=== PATIENT | male | born 1965 ===

== ENCOUNTER 2025-03-09 03:45 | Inpatient (IN) | payer OTHER, SELFPAY ==
[2025-03-09] VITALS (19 sets, daily range): BP systolic 136–158; BP diastolic 85–107; PULSE 84; O2SAT 97–98; BMI 21.0; BMI 23.2
[2025-03-09 00:39] LABS: Glucose - Point of Care 91 mg/dl (70-99)
--- NOTE | 2025-03-09 00:43 | ED.CVA ---
History of Present Illness
General
Chief Complaint: CVA/TIA Symptoms
Time Seen by Provider: 03/09/25 00:38
Onset of Stroke Symptoms
Onset of symptoms known: No
Time pt last seen normal is known: No
History of Present Illness
History of Present Illness:
TIME OF INITIAL ENCOUNTER: 12:45 AM
HPI: I spoke to EMS prior to arrival. EMS tells me that his symptoms likely started over 24 hours ago. There was concerns for a change in his mental status. I called the staff at [facility] who tells me that he can usually talk normally and joke
around but was not doing that over the past 24 hours or so. He was noted to be leaning to 1 side as well.
EXAM:
GENERAL: The patient is ill-appearing, dialysis catheter noted tunneled in the right IJ
HEENT: Dry oral mucosa
CARDIOVASCULAR: No murmurs, normal heart rate, regular rhythm, No chest wall tenderness
PULMONARY: No respiratory distress, breath sounds are clear and equal
ABDOMEN: Soft with no peritoneal signs, no tenderness
NEUROLOGIC: The patient has trouble following simple commands, he cannot name the month, the patient appears generally weak
PSYCHIATRIC: The patient has limited insight and judgment
EXTREMITIES: Nontender, no edema, moves all extremities equally
SKIN: No rash, no lesions
NUMBER AND COMPLEXITY OF PROBLEMS ADDRESSED AT THE ENCOUNTER
� Chronic conditions affecting care: CKD, diabetes, history of alcohol dependence
� Acute Exacerbation and/or Progression of Chronic Illness:
� Differential Diagnosis includes: CVA, sepsis, bacteremia, pneumonia, UTI, electrolyte normality, dehydration, acute on chronic renal sufficiency
AMOUNT AND/OR COMPLEXITY OF DATA TO BE REVIEWED AND ANALYZED
� I performed an independent evaluation of and my interpretation is:
EKG: Sinus 89, IVCD with associated ST abnormality and no old to compare
CT:
X-rays: HD catheter noted, increased densities noted of the right lung
Laboratory Studies: Hemoglobin 7.6, glucose 91
Other:
� Review of other/old records: I reviewed the paperwork from [facility]. As of 3:05 AM, no records have been received from [facility]
� Clinical information was obtained by an independent historian: I did speak to staff at [facility]
� Prescriptions/Medications Considered but not given:
� Further testing considered but not performed:
RISK OF COMPLICATIONS AND/OR MORBIDITY OR MORTALITY OF PATIENT MANAGEMENT
� Social determinants of health affecting care: Originally from [place], at [facility] as this is the only facility that could accept him for physical therapy and get hemodialysis done
� Discussion with other providers: Dr. Garcia for admission
� Escalation of care including admission/observation vs risk of discharge considered:The patient was found to be anemic with hemoglobin 7.6 with no old to compare. Stools Hemoccult negative.
ANY OTHER UPDATES:
1:30 AM: On reassessment the patient's clinical condition remains unchanged
1:45 AM: I spoke to the mother. The mother tells me that the patient was admitted at [facility] for a chest infection that spread into his knees and elsewhere affecting his kidneys requiring the start of dialysis. The only place that could
except him for physical therapy and dialysis was [facility]. He originally was living in the [place] area. I spoke to staff at [facility] which indicates that the patient had a hemoglobin of 9.4 on 03/04.
From [facility] due to altered mental status onset around 24hrs ago. I called [facility], agency RN could not provide additional info. EMS said there was concern of dysarthria, leaning to one side, and facial asymmetry. I called his Mom
[phone] in [place], was at [facility] w/ 'lung infection that spread to his knees and now he is on dialysis'. Only place that could provide PT and HD was [facility]. He currently is not following simple commands which is not normal
for him. Paperwork said DNR, but mom says he is NOT DNR. Hgb 7.6. On 03/04 was 9.4. Heme negative brown stool. CT head neg acute. TSH 44, fT4 pending. 3+ LE and positive Nitrite - giving Rocephin. Temp 37.9C rectally. Also giving vanc due to
presence of temporary dialysis catheter. We called [facility], still have not receive anything regarding records. I filled out blood consent if needed.
Phy Exam
Physical Exam
Physical Exam:
See HPI
Course
Orders/Labs/Results
Orders:
Orders
03/09/25 00:41
CT Head W/o Iv Contrast Urgent
Comment:
Reason For Exam: alt ms
0.9% Sodium Chloride 1000 ml [Nss] 1,000 ml IV BOLUS
03/09/25 00:45
Acetaminophen [Tylenol/Feverall] 650 mg RECTAL NOW STA
03/09/25 00:46
CR Chest Portable - 1 View Urgent
Comment:
Reason For Exam: fever altered
Reason Study Needs to be Portable: Unable to Transport
03/09/25 00:58
Complete Blood Count/With Diff Urgent
Comprehensive Metabolic Panel Urgent
Ferritin Urgent
Comment: ADD ON
Free T4 Urgent
Iron Urgent
Lactic Acid Q4H
Comment: CANCEL 2nd LACTIC ACID IF 1st LACTIC ACID IS LESS THAN 2
TSH Reflex To Free T4 Urgent
Total Iron Binding Urgent
Comment: ADD ON
Blood Culture Q30M
JANETTE Source: Blood/Venous
Specimen Description:
03/09/25 01:25
Add On- LAB Urgent
Tests Added?: iron panel, TIBC, ferritin
03/09/25 01:34
Type+Screen Urgent
Blood Culture Q30M
JANETTE Source: Blood/Venous
Specimen Description:
03/09/25 01:58
Urinalysis Reflex To Culture Urgent
Date Specimen was Collected: 03/09/25
Time Specimen was Collected: 01:57
Urine Microscopic Reflex Cult Urgent
Urine Culture Urgent
JANETTE Source: U
Specimen Description:
Date Specimen was Collected: 03/09/25
Time Specimen was Collected: 01:57
03/09/25 02:03
ABO2 Urgent
BBK Wristband Number:
Associate notified that ABO2 has been ordered: LILLY
Date: 03/09/25
Time: 02:01
[employer] ID: [id number]
03/09/25 02:22
CefTRIAXone [Rocephin] 1,000 mg IV NOW STA
03/09/25 02:26
Electrocardiogram (*1) Urgent
Reason for Study: Palpitations
EKG- Treatment ONCE
03/09/25 02:59
Vancomycin [Vancocin] 1,500 mg 0.9% Sodium Chloride 500 ml [Nss] 500 ml IV NOW
Abnormal Lab Results
03/09/25 03/09/25
00:58 01:58
RBC 2.74 L 10^6/uL
(4.70-6.10)
Hgb 7.6 L g/dL
(13.0-18.0)
Hct 25.1 L %
(39.0-52.0)
MCHC 30.3 L g/dL
(33.0-37.0)
RDW 16.7 H %
(11.5-14.5)
Absolute Lymphs (auto) 0.9 L 10^3/uL
(1.2-3.4)
Lymphocytes % 14.5 L %
(20.5-51.1)
BUN 29 H mg/dl
(9-20)
Creatinine 3.5 H mg/dL
(0.7-1.3)
Iron 31 L ug/dl
(49-181)
TIBC 187 L ug/dl
(261-462)
% Saturation 16 L %
(20-50)
Ferritin 568.0 H ng/ml
(17.9-464.0)
Alkaline Phosphatase 143 H U/L
(38-126)
Albumin 2.6 L g/dl
(3.5-5.0)
TSH (Reflex) 44.10 H uIU/ml
(0.47-4.68)
Urine Ketones 1+ A
(Negative)
Ur Occult Blood Reflex 4+ A
(Negative)
Urine Nitrite (Reflex) Positive A
(Negative)
Leukocyte Esterase Rfl 3+ A
(Negative)
Urine RBC >100 A /HPF
(0-2)
Urine Albumin (Reflex) 4+ A
(Neg - Trace)
03/09/25 00:58
03/09/25 00:58
Vital Signs
Initial and Last Documented VS:
Initial Vital Signs
Temp Pulse Resp BP Pulse Ox
37.9 C 100 17 154/98 94
03/09/25 00:35 03/09/25 00:35 03/09/25 00:35 03/09/25 00:35 03/09/25 00:35
Last Documented Vital Signs
Temp Pulse Resp BP Pulse Ox
37.9 C 86 16 151/97 97
03/09/25 00:35 03/09/25 03:00 03/09/25 03:00 03/09/25 01:00 03/09/25 01:30
*Critical Care Note
Total Time (30-74mins, 75-104mins- exclusive of procedures): Not Applicable
ED Attending Note
-
Portions of this chart may have been created with voice recognition software.� Occasional wrong word or��sound alike� substitutions may have occurred due to the inherent limitations of voice recognition software.
Discharge Plan
Departure
Patient Disposition: Admit
Date of Disposition: 03/09/25
Time of Disposition: 02:25
Presentation/result/management discussed w/ accepting MD/DO: Hospitalist
Discharge Problem:
Acute alteration in mental status
Referrals:
Ismael Aranda DO [Family Provider] -
Interventions
Interventions:
*Risk Screen - Suicide Last Done: 03/09/25 00:35
*General Assessment Last Done: 03/09/25 00:35
*Neglect/Abuse Screening Last Done: 03/09/25 00:35
ED- Pulmonary Assessment Last Done: 03/09/25 01:09
ED- Neurological Assessment Last Done: 03/09/25 01:09
ED- Cardiac Assessment Last Done: 03/09/25 01:09
Discharge Date and Time
Print Language: MOHAWK
[2025-03-09] MEDS: TYLENOL/FEVERALL 650 MG RECTAL (00:59)
[2025-03-09] MEDS: NSS 1000 IV (01:00)
[2025-03-09 01:12] LABS: % Basophils 1.2 % (0-2); % Eosinophils 3.6 % (0-6); % Immature Granulocytes 0.3 % (0-0.5); % Lymphocytes 14.5 % (20.5-51.1); % Monocytes 9.2 % (1.7-9.3); % Neutrophils 71.2 % (42.2-75.2); Absolute Basophils 0.1 10^3/uL (0-0.2); Absolute Eosinophils 0.2 10^3/uL (0-0.7); Absolute Lymphocytes 0.9 10^3/uL (1.2-3.4); Absolute Monocytes 0.5 10^3/uL (0.1-0.6); Absolute Neutrophils 4.2 10^3/uL (1.4-6.5); Hematocrit 25.1 % (39.0-52.0); Hemoglobin 7.6 g/dL (13.0-18.0); Mean Corp Hgb Conc. 30.3 g/dL (33.0-37.0); Mean Corpuscular Hgb 27.7 pg (27.0-31.0); Mean Corpuscular Volume 91.6 fL (80.0-94.0); Mean Platelet Volume 9.2 fL (7.4-10.4); Nucleated Red Blood Cells % 0 % (-); Platelet Count 200 10^3/uL (130-400); Red Blood Cell Count 2.74 10^6/uL (4.70-6.10); Red Cell Dist. Width 16.7 % (11.5-14.5); White Blood Cell Count 5.9 10^3/uL (4.8-10.8)
[2025-03-09 01:25] LABS: ALT (SGPT) < 10 U/L (0-50); AST (SGOT) 19 U/L (17-59); Albumin 2.6 g/dl (3.5-5.0); Alkaline Phosphatase 143 U/L (38-126); Blood Urea Nitrogen 29 mg/dl (9-20); Calcium 8.4 mg/dl (8.4-10.2); Carbon Dioxide 27 mmol/L (22-30); Chloride 102 mmol/L (98-107); Estimated Creatinine Clearance 25 ml/min; Glucose 97 mg/dl (70-99); Potassium 3.9 mmol/L (3.5-5.1); Sodium 138 mmol/L (135-145); Total Bilirubin 0.5 mg/dl (0.2-1.3); Total Protein 7.1 g/dl (6.3-8.2); eGFR 19.28
[2025-03-09 01:27] LABS: Lactic Acid 0.8 mmol/L (0.7-2.0)
[2025-03-09 01:51] LABS: Iron 31 ug/dl (49-181)
[2025-03-09 02:00] LABS: Percent Saturation 16 % (20-50); Total Iron Binding Capacity 187 ug/dl (261-462)
[2025-03-09 02:13] LABS: Urine Albumin 4+ (Neg - Trace); Urine Bilirubin Negative (Negative); Urine Character Bloody (Clear); Urine Color Brown; Urine Glucose Negative (Negative); Urine Ketone 1+ (Negative); Urine Leukocyte 3+ (Negative); Urine Nitrite Positive (Negative); Urine Occult Blood 4+ (Negative); Urine Urobilinogen Negative (Neg - 1+)
[2025-03-09 02:29] LABS: Urine Red Blood Cell >100 /HPF (0-2); Urine Squamous Cell None seen /LPF (Few)
[2025-03-09] MEDS: VANCOCIN 530 MG IV (03:05)
[2025-03-09] MEDS: ROCEPHIN 1000 MG IV ×2 (03:05→23:11)
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
[2025-03-09] MEDS: SYNTHROID PO (06:13)
[2025-03-09 06:44] LABS: Hematocrit 26.6 % (39.0-52.0); Mean Corp Hgb Conc. 30.1 g/dL (33.0-37.0); Mean Corpuscular Hgb 28.3 pg (27.0-31.0); Mean Platelet Volume 9.6 fL (7.4-10.4); Platelet Count 201 10^3/uL (130-400); Red Blood Cell Count 2.83 10^6/uL (4.70-6.10); Red Cell Dist. Width 16.5 % (11.5-14.5); White Blood Cell Count 5.4 10^3/uL (4.8-10.8)
[2025-03-09 07:01] LABS: Blood Urea Nitrogen 29 mg/dl (9-20); Calcium 8.4 mg/dl (8.4-10.2); Carbon Dioxide 28 mmol/L (22-30); Chloride 103 mmol/L (98-107); Estimated Creatinine Clearance 24 ml/min; Glucose 95 mg/dl (70-99); Magnesium 1.5 mg/dl (1.6-2.3); Phosphorus 4.3 mg/dl (2.5-4.5); Potassium 3.8 mmol/L (3.5-5.1); Sodium 138 mmol/L (135-145); eGFR 18.64
[2025-03-09] MEDS: NOVOLOG FLEXPEN-LOW RESISTANCE SC ×3 (07:26→17:33)
--- NOTE | 2025-03-09 07:26 | EDRN ---
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 Contacted the 7-[address] Chaudhary, please hold morning insulin and PO meds.
--- NOTE | 2025-03-09 07:27 | EDRN ---
Nephrology made aware of consult order.
--- NOTE | 2025-03-09 08:42 | EDRN ---
IV team placed a new IV on the allowed arm for the patient. Pt to MRI, unable to start the stat Magnesium order. Dr. Julio notified via [facility].
[2025-03-09] MEDS: FOLVITE PO (09:19)
[2025-03-09] MEDS: MAGNESIUM SULFATE 50 IV (09:19)
[2025-03-09] MEDS: SENOKOT PO (09:19)
[2025-03-09] MEDS: VISBIOME PO (09:19)
[2025-03-09] MEDS: HEPARIN 5000 UNITS SC ×2 (09:27→20:46)
[2025-03-09] MEDS: LIDOCAINE 4% PATCH 1 PATCH TOPICAL (09:28)
--- NOTE | 2025-03-09 09:30 | CM ---
Addendum entered by Reva Heredia 03/09/25 10:06:
Paperwork received by SNF
Insurance [employer] [employer] PLan #[phone]
Faxed to admissions [phone]
Original Note:
CM spoke with nursing staff at [facility]
Limited info provided by weekend nursing staff
Pt has been at [facility] for two weeks- typically AxO3x
Is bed/chair bound currently and sam lift for transfers
Indep with bed mobility and UB personal care tasks
Weakness noted and pt has not been able to ambulate since admission for rehab
Pt unable to self propel WC at this time
Pt receives HD at facility [facility]
SNF will fax over insurance info- nursing not sure of payor source of STR vs LTC
Call with pt's mother/Shamika [phone] and she provided more background info
Pt admitted to hospital in [place] from 11/23/24-02/21/25
Was sent to [facility] due to HD needs that developed during hospitalization
Mother resides in [facility]
Pt has two sisters and 1 brother, all involved
Admissions notified with update for emergency contacts
Pt was residing with his mother prior to prolonged hospitalization/SNF placement
Primary contact- Shamika Posey/mother [phone]
Secondary contact- Chioma Laughlin) Alexis/sister [phone]
No POAs
Discharge Disposition- return to [facility]
[2025-03-09 10:52] LABS: Glycohemoglobin (HgbA1c) 5.2 % (4.0-5.6)
--- NOTE | 2025-03-09 10:59 | PTOTSP ---
Speech Pathology
Clinical Swallow Evaluation
59M with admission for AMS, dysarthria, and facial asymmetry. CVA/TIA workup, Brain MRI negative. CXR concerning for [possible PNA vs interstitial edema. Presents with s/s of a functional oropharyngeal swallow. No overt s/s of aspiration observed
this date. Unable to r/o silent aspiration at bedside. Pt is deemed an increased risk of aspiration 2/2 dysarthria, ?possible hx of modified diets, and AMS. Of note, had a recent admission for [facility] for sepsis related to PNA.
Recommend:
1. Regular textures, thin liquids
2. Meds as best tolerated
3. Swallow strategies: slow rate, small bites
4. CONSTRUCTION ASSISTANT service to follow up re: to assess tolerance of current diet level and provide dysphagia tx at the acute care level PRN; consider VSE to r/o silent aspiration given CXR concerning for possible PNA
--- NOTE | 2025-03-09 11:10 | W.CON.NEPH ---
Consultation
-
Date/Time Consultation Requested: 03/08/2025 11 PM
Date/Time Consultation Performed: 03/09/2025 at 9 AM
Requesting Provider: Dr. Ceballos
Performing Provider: Dr. Lara
Reason for Consultation: End-stage renal disease
Medical History
-
Chief Complaint: ESRD
History of Present Illness:
59y M with PMH significant for DM-II, alcohol use disorder and acute renal failure requiring dialysis who presents to ED from [facility] for evaluation of mental status change. EMS report that patient had facial asymmetry, dysarthria and 'leaning
to the side'.
most recently hospitalized at [facility] for sepsis related to pneumonia and knees. He developed acute renal failure during that stay and required hemodialysis. He was ultimately discharged to [facility] to meet his PT and HD needs.
CAT scan and MRI are negative for any acute pathology
The patient is awake and alert has no complaints no chest pain or shortness of breath
Renal consult for end-stage renal disease management
Past Medical History
59y M with PMH significant for DM-II, alcohol use disorder and acute renal failure requiring dialysis who presents to ED from [facility]
Social History
Tobacco: Non-Smoker
Alcohol: Former
Family History
Family History: Not Pertinent
Allergies / Home Medications
Allergy/AdvReac Type Severity Reaction Status Date / Time
No Known Allergies Allergy Verified 03/09/25 00:35
�Medication �Instructions �Recorded �Confirmed �Type
Lactobacillus acidophilus 1,000 mmu cells PO DAILY 03/09/25 03/09/25 History
acetaminophen 325 mg tablet 650 mg PO Q6H PRN Pain / Fever 03/09/25 03/09/25 History
albuterol sulfate 0.63 mg/3 mL 0.63 mg inhalation Q4H PRN SOB 03/09/25 03/09/25 History
solution for nebulization
atorvastatin 20 mg tablet 20 mg PO HS 03/09/25 03/09/25 History
cefadroxil 1 gram tablet 1,000 mg PO MOWEFR@2200 03/09/25 03/09/25 History
folic acid 1 mg tablet 1 mg PO DAILY 03/09/25 03/09/25 History
insulin aspart U-100 100 unit/mL 1 sliding scale dose SC DIRECTED 03/09/25 03/09/25 History
(3 mL) subcutaneous pen (Novolog
FlexPen U-100 Insulin aspart)
insulin glargine 100 unit/mL (3 6 unit SC QPM 03/09/25 03/09/25 History
mL) subcutaneous pen (Lantus
Solostar U-100 Insulin)
levothyroxine 137 mcg tablet 137 mcg PO DAILY 03/09/25 03/09/25 History
lidocaine 4 % topical patch 1 patch topical DAILY 03/09/25 03/09/25 History
melatonin 5 mg tablet 5 mg PO HS 03/09/25 03/09/25 History
nicotine 7 mg/24 hr daily 1 patch transdermal Q24H 03/09/25 03/09/25 History
transdermal patch
olanzapine 2.5 mg tablet 2.5 mg PO Q8HPRN PRN agitation 03/09/25 03/09/25 History
omeprazole 20 mg capsule,delayed 20 mg PO DAILY 03/09/25 03/09/25 History
release
oxycodone 5 mg tablet 5 mg PO Q6H PRN moderate pain 03/09/25 03/09/25 History
polyethylene glycol 3350 17 gram 17 g PO BID 03/09/25 03/09/25 History
oral powder packet (Miralax)
quetiapine 25 mg tablet 75 mg PO HS 03/09/25 03/09/25 History
sennosides 8.6 mg tablet (senna) 8.6 mg PO BID 03/09/25 03/09/25 History
Review of Systems
-
No chest pain or shortness of breath no nausea or vomiting
All other systems: Negative unless noted
Physical Exam
Vital Signs
Vital Signs
Temp Pulse Resp BP Pulse Ox
97.7 F 77 17 150/95 98
03/09/25 07:00 03/09/25 06:45 03/09/25 06:45 03/09/25 06:00 03/09/25 06:45
Lab Results
WBC 5.4 10^3/uL (4.8-10.8) 03/09/25 05:59
RBC 2.83 10^6/uL (4.70-6.10) L 03/09/25 05:59
Hgb 8.0 g/dL (13.0-18.0) L 03/09/25 05:59
Hct 26.6 % (39.0-52.0) L 03/09/25 05:59
Plt Count 201 10^3/uL (130-400) 03/09/25 05:59
Sodium 138 mmol/L (135-145) 03/09/25 05:59
Potassium 3.8 mmol/L (3.5-5.1) 03/09/25 05:59
Chloride 103 mmol/L (98-107) 03/09/25 05:59
Carbon Dioxide 28 mmol/L (22-30) 03/09/25 05:59
BUN 29 mg/dl (9-20) H 03/09/25 05:59
Creatinine 3.6 mg/dL (0.7-1.3) H 03/09/25 05:59
eGFR 18.64 03/09/25 05:59
Glucose 95 mg/dl (70-99) 03/09/25 05:59
Calcium 8.4 mg/dl (8.4-10.2) 03/09/25 05:59
Phosphorus 4.3 mg/dl (2.5-4.5) 03/09/25 05:59
Albumin 2.6 g/dl (3.5-5.0) L 03/09/25 00:58
Physical Exam
General no acute distress
HEENT no cephalic atraumatic extraocular muscle intact no scleral icterus no JVD neck supple
lungs clear to auscultation bilateral
heart regular S1-S2 positive
abdomen soft nontender positive bowel sounds
extremities no edema pulses present bilateral
Neurologically nonfocal alert and oriented x 3
Skin no lesions no abrasions no petechiae
Psych normal affect no bizarre behavior
Data Reviewed
-
CT Scan: Image Personally Visualized and interpreted
MRI: Image Personally Visualized and interpreted
Labs: Labs Reviewed by me and Discussed with Patient
Assessment/Plan
-
59y M with PMH significant for DM-II, alcohol use disorder and acute renal failure requiring dialysis who presents to ED from [facility] for evaluation of mental status change.
Impression.
Acute kidney injury dialysis dependent Monday at [facility]
Altered mental status negative CAT scan and MRI for acute process
Questionable UTI
Anemia of chronic disease
Type 2 diabetes
PermCath= clear dry and intact
Plan.
No acute need for dialysis today
Dialysis ordered for Monday
Epogen
See orders
Antibiotics for possible UTI panculture
Renal dose all medications appropriate for ESRD
--- NOTE | 2025-03-09 11:20 | PHA.VAN.IN ---
Assessment
- Assessment
Renal Function: Patient has ESRD, on chronic Hemodialysis
Hemodialysis Schedule: MWF
Concomitant Antimicrobials: ceftriaxone
Plan
- Plan
Initial / Loading Dose: 1500 mg LD 03/09 0300
Maintenance Regimen: prn random levels with HD
Monitoring: ordered AM 03/10/25
Pharmacokinetics Vancomycin I
- -
Patient Age: 59
Patient Sex: Male
Vancomycin Day #: 1
Indication: Bacteremia
Requesting Provider: Jose
Height / Weight:
Height 6 ft 4 in
Actual Weight 78.1 kg
Pertinent Past Medical History: Hx acute renal failure req HD; alcohol use disorder
- Vital Signs / Lab Results
Temp Pulse Resp BP Pulse Ox
97.7 F 77 17 150/95 98
03/09/25 07:00 03/09/25 06:45 03/09/25 06:45 03/09/25 06:00 03/09/25 06:45
Lab Results - Hematology
03/09/25 03/09/25
00:58 05:59
WBC 5.9 5.4
Lab Results - Chemistry
03/09/25 03/09/25
00:58 05:59
BUN 29 H 29 H
Creatinine 3.5 H 3.6 H
Estimated Creat Clear 25 24
Albumin 2.6 L
03/09/25 03/09/25
00:58 05:00
Lactic Acid 0.8 Cancelled
Lab Results - Urine
03/09/25
01:58
Urine Nitrite (Reflex) Positive A
Leukocyte Esterase Rfl 3+ A
Urine WBC (Reflex)
Ur Squamous Epith Cells None seen
Urine Bacteria (Reflex)
[2025-03-09 11:31] LABS: Glucose - Point of Care 113 mg/dl (70-99)
--- NOTE | 2025-03-09 12:42 | W.PN.UPDATE ---
Addendum entered and electronically signed by Michael Julio DO 03/09/25 15:53:
X-ray came back with concerns for bilateral septic joint. Spoke with orthopedics who is recommending stat MRI of his right knee. Plan for arthrocentesis later today. Continue antibiotics and follow cultures
Original Note:
Update Note
Progress Note Update
H&P from 0322 today. 59-year-old male with IDDM 2, EtOH abuse, AIXA, hypothyroidism, H/O acute renal failure currently on HD, H/O septic arthritis of the bilateral knees with right patella removal currently on cefadroxil suppressive therapy that
presented to the hospital from his nursing facility with reported altered mental status. Also reportedly concerns for facial droop and speech deficits. AFVSS upon arrival, initial head CT unremarkable, chest x-ray with interstitial edema, brain
MRI unremarkable with no signs of acute CVA. Labs showed hemoglobin 8.0, creatinine 3.6, BUN 29, magnesium 1.5, albumin 2.6, TSH 44 with normal free T4. Iron studies with ferritin 568, TIBC 187, iron saturation 16%. Blood cultures taken on
arrival, was started on IV ceftriaxone and vancomycin in place of home cefadroxil due to knee effusions.
Patient recently was hospitalized at [facility]. Medical records currently pending.
On exam he is AO x 3. States that he never had altered mental status and told his facility he did not want to come to the hospital. Cardiopulmonary exam unremarkable. Does have bilateral knee effusions, with some warmth to palpation. Palpable
pulses, does not appear toxic
Metabolic encephalopathy. Seems improved. Question if this is related to possible septic arthritis of his surgical knees. Discussed with orthopedics who recommended x-rays and inflammatory markers. ESR pending though CRP is elevated near 86.7.
Will continue IV antibiotics and follow-up x-rays. Consider orthopedics consult and arthrocentesis. Trend CBC and temperature curve, trend inflammatory markers, follow-up culture.
Subclinical hypothyroidism. TSH 44 with normal free T4. Home regimen includes 137 mcg levothyroxine. Reportedly may have had dose changed when at [facility] recently. Will await medical records from [facility], plan to increase levothyroxine to at
least 150 mcg if no recent dose changes. Will need to have repeat TSH in 4-6
Hypomagnesemia. Magnesium 1.5, ordered 2 g mag sulfate. Continue to monitor
Full code
Renal diet
Likely discharge >48-hour
[2025-03-09] MEDS: FERRLECIT 110 MG IV (14:13)
[2025-03-09 14:51] LABS: Erythrocyte Sed Rate 88 mm/hour (0-20)
[2025-03-09 17:32] LABS: Glucose - Point of Care 141 mg/dl (70-99)
[2025-03-09] MEDS: LANTUS 0.06 UNITS SC (18:08)
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
[2025-03-09] MEDS: PERCOCET 5/325 1 TABLET PO (20:46)
[2025-03-09] MEDS: SENOKOT 8.6 MG PO (20:49)
[2025-03-09] MEDS: SEROQUEL 75 MG PO ×2 (21:28)
[2025-03-09] MEDS: LIPITOR 20 MG PO (21:29)
[2025-03-09 21:32] LABS: Glucose - Point of Care 151 mg/dl (70-99)
[2025-03-09 22:04] LABS: Body Fluid Mononuclear 2.8 %; Body Fluid Polymorphonuclear 97.2 %; Body Fluid WBC 92000 /CUMM
[2025-03-09 22:06] LABS: Body Fluid Granulocytes 97 %; Body Fluid Lymphocytes 3 %; Body Fluid Second Tech DW
[2025-03-09 22:16] LABS: Body Fluid Mononuclear 2.9 %; Body Fluid Polymorphonuclear 97.1 %; Body Fluid WBC 59400 /CUMM
[2025-03-09 22:23] LABS: Body Fluid Second Tech JK
[2025-03-09] MEDS: STERILE WATER FOR INJECTION 10 ML IV (23:12)
[2025-03-10 03:12] VITALS: BP 137/83
[2025-03-10 05:10] VITALS: BMI 20.8
[2025-03-10] MEDS: SYNTHROID 137 MCG PO (05:12)
[2025-03-10 07:16] VITALS: BP 135/81
[2025-03-10 07:46] LABS: Glucose - Point of Care 110 mg/dl (70-99)
[2025-03-10 08:03] LABS: % Basophils 1.2 % (0-2); % Immature Granulocytes 0.2 % (0-0.5); % Lymphocytes 23.4 % (20.5-51.1); % Monocytes 10.5 % (1.7-9.3); % Neutrophils 58.7 % (42.2-75.2); Absolute Basophils 0.1 10^3/uL (0-0.2); Absolute Eosinophils 0.3 10^3/uL (0-0.7); Absolute Monocytes 0.4 10^3/uL (0.1-0.6); Absolute Neutrophils 2.5 10^3/uL (1.4-6.5); Hematocrit 28.7 % (39.0-52.0); Hemoglobin 8.6 g/dL (13.0-18.0); Mean Corpuscular Hgb 28.2 pg (27.0-31.0); Mean Corpuscular Volume 94.1 fL (80.0-94.0); Mean Platelet Volume 9.9 fL (7.4-10.4); Nucleated Red Blood Cells % 0 % (-); Platelet Count 219 10^3/uL (130-400); Red Blood Cell Count 3.05 10^6/uL (4.70-6.10); Red Cell Dist. Width 16.7 % (11.5-14.5); White Blood Cell Count 4.2 10^3/uL (4.8-10.8)
[2025-03-10 08:06] LABS: Vancomycin Random 14.4 ug/ml
[2025-03-10 08:23] LABS: Erythrocyte Sed Rate 98 mm/hour (0-20)
[2025-03-10 08:34] LABS: Blood Urea Nitrogen 42 mg/dl (9-20); Calcium 8.4 mg/dl (8.4-10.2); Carbon Dioxide 26 mmol/L (22-30); Chloride 102 mmol/L (98-107); Estimated Creatinine Clearance 20 ml/min; Glucose 106 mg/dl (70-99); Potassium 4.5 mmol/L (3.5-5.1); Sodium 137 mmol/L (135-145); eGFR 14.65
--- NOTE | 2025-03-10 08:38 | W.PN.HOSP.TC ---
Today's Communication/Plan
-
see plan
Assessment / Plan
Assessment / Plan
Mr. Zuhair Posey is a 59-year-old male with IDDM 2, EtOH abuse, AIXA, hypothyroidism, H/O acute renal failure currently on HD, H/O septic arthritis of the bilateral knees with right patella removal currently on cefadroxil suppressive therapy that
presented to the hospital from his nursing facility with reported altered mental status. Also reportedly concerns for facial droop and speech deficits. AFVSS upon arrival, initial head CT unremarkable, chest x-ray with interstitial edema, brain
MRI unremarkable with no signs of acute CVA. Labs showed hemoglobin 8.0, creatinine 3.6, BUN 29, magnesium 1.5, albumin 2.6, TSH 44 with normal free T4. Iron studies with ferritin 568, TIBC 187, iron saturation 16%. Blood cultures taken on
arrival, was started on IV ceftriaxone and vancomycin in place of home cefadroxil due to knee effusions.
Patient recently was hospitalized at [facility]. Medical records currently pending.
HEAD CT 03/09/25
IMPRESSION:
No acute intracranial abnormality noted.
CXR 03/09/25
IMPRESSION:
Asymmetric interstitial edema versus patchy pneumonia. Small right pleural effusion.
Brain MRI 03/09/25
IMPRESSION:
Motion degradation.
No acute intracranial abnormality noted.
Bilateral Knee X-Ray 03/09/25
IMPRESSION:
Diffuse soft tissue swelling about the knees bilaterally as well as moderate bilateral suprapatellar effusions. Of particular note, findings are suggestive of numerous TINY BUBBLES OF AIR WITHIN THE MEDIAL/POSTERIOR SOFT TISSUES OF THE RIGHT KNEE
AND IN THE SUPRAPATELLAR REGION, CANNOT EXCLUDE INFECTION.
Bilateral degenerative changes.
Possible either fracture or a bony spur along the medial proximal right tibia versus cortical bony destructive process such as osteomyelitis.
Suggest MRI for more complete evaluation of the right knee.
Septic Arthritis Right Knee
Bacteremia - gram positive cocci in chains and pairs
-see x-ray results above; s/p arthrocentesis with fluid studies showing WBC 92,000 with > 90% PMN; no crystals seen
-MRI ordered
-continue IV Vancomycin/Ceftriaxone (increase to 2G)
-appreciate Ortho
-ID consulted
-TTE
-repeat blood cultures tomorrow
Metabolic Encephalopathy 2/2 Above
-resolving
Hypothyroidism with TSH 44
-Will await medical records from [facility], plan to increase levothyroxine to at least 150 mcg if no recent dose changes. Will need to have repeat TSH in 4-6
Hypomagnesemia. Magnesium 1.5, ordered 2 g mag sulfate. Continue to monitor
ESRD on HD
-Renal consulted
Full code
Renal diet
51 minutes spent on patient care
Anticipated Discharge: > 48 hours
Subjective/Interval History
-
Date of Service: March 10, 2025
patient states he is very hungry
reports knee pain
Objective Data
-
Labs:
Laboratory Results
03/10/25
07:41
WBC 4.2 L
Hgb 8.6 L
Hct 28.7 L
Plt Count 219
Sodium 137
Potassium 4.5
Chloride 102
Carbon Dioxide 26
BUN 42 H
Creatinine 4.4 H*
Glucose 106 H
Calcium 8.4
Vital Signs:
Vital Signs
Temp Pulse Resp BP Pulse Ox
98.3 F 78 18 135/81 96
03/10/25 07:16 03/10/25 07:16 03/10/25 07:16 03/10/25 07:16 03/10/25 07:16
I&O
03/09/25 03/10/25 03/11/25
06:59 06:59 06:59
Intake Total 360 / 360
Balance 360 / 360
Review of Systems
-
History Source: Patient
All other systems: Reviewed and negative
Physical Exam
-
General: No Apparent Distress
Respiratory: Clear to Auscultation; Negative Wheezes
Cardiac: Regular Rhythm and S1/S2
GI: Soft and Nontender
Musculoskeletal: Other (b/l knee swelling; right knee tenderness )
Skin: Warm and Dry; Negative Rash
Neuro: AO x 3
Psych: Calm
Data Reviewed
-
Diagnostic Radiology: Report Reviewed by me
Labs: Labs Reviewed by me
--- NOTE | 2025-03-10 08:40 | PHA.VAN.FU ---
Vancomycin Assessment / Plan
- Assessment
Hemodialysis Schedule: MWF
In the past 24 hrs, patient has been: Afebrile
Concomitant Antimicrobials: ceftriaxone
- Assessment - Therapeutic Drug Monitoring
Random Level: pre-HD = 14.4
- Dosing Plan
Dosing by Level: Re-dose today (Vanc 750mg)
- Monitoring Plan
No level(s) ordered at this time: consider level prior to HD
- Follow Up
Pharmacy will continue to follow.
Vancomycin Follow UP
- -
Patient Age: 59
Patient Sex: Male
Vancomycin Day #: 2
Indication: Bacteremia
Requesting Provider: Dr. Garcia
Pertinent Antimicrobial Allergies:
NKDA
Height / Weight:
Height 6 ft 4 in
Actual Weight 77.655 kg
Pertinent Past Medical History: DM II, ESRD HD MWF
- Vital Signs / Lab Results
Temp Pulse Resp BP Pulse Ox
98.3 F 78 18 135/81 96
03/10/25 07:16 03/10/25 07:16 03/10/25 07:16 03/10/25 07:16 03/10/25 07:16
Lab Results - Hematology
03/09/25 03/09/25 03/10/25
00:58 05:59 07:41
WBC 5.9 5.4 4.2 L
Lab Results - Chemistry
03/09/25 03/09/25 03/10/25
00:58 05:59 07:41
BUN 29 H 29 H 42 H
Creatinine 3.5 H 3.6 H 4.4 H*
Estimated Creat Clear 24 20
Albumin 2.6 L
03/09/25 03/09/25
00:58 05:00
Lactic Acid 0.8 Cancelled
Microbiology Results
03/09/25 00:58 Blood Culture - Preliminary
Blood/Venous Positive culture in progress
Gram Stain - Preliminary
03/09/25 01:34 Blood Culture - Preliminary
Blood/Venous Positive culture in progress
Gram Stain - Preliminary
Therapeutic Drug Monitoring
Random Vancomycin 14.4 ug/ml 03/10/25 07:40
[2025-03-10] MEDS: NOVOLOG FLEXPEN-LOW RESISTANCE SC ×2 (08:53→13:35)
[2025-03-10] MEDS: LIDOCAINE 4% PATCH 1 PATCH TOPICAL (09:00)
[2025-03-10] MEDS: ROCEPHIN 1000 MG IV ×2 (09:00→21:33)
[2025-03-10] MEDS: VISBIOME 1 CAP PO (09:00)
[2025-03-10] MEDS: FOLVITE 1 MG PO (09:01)
[2025-03-10] MEDS: SENOKOT 8.6 MG PO ×2 (09:01→21:32)
[2025-03-10] MEDS: HEPARIN 5000 UNITS SC ×2 (09:01→21:32)
[2025-03-10 09:58] LABS: Magnesium 1.8 mg/dl (1.6-2.3)
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
[2025-03-10 13:14] LABS: Glucose - Point of Care 136 mg/dl (70-99)
--- NOTE | 2025-03-10 14:14 | CM ---
CM following re: discharge planning.
Reviewed pt's chart, met with pt.
Pt expressed to me unhappy feelings regarding being too far from his 94 year old mother and at the same time pt expressed his understanding being at [facility] that 2.5 hours away from his mother. Pt reports he has been staying at [facility]
for 2 weeks, cannot even stand, staff using Ok lift to transfer to a chair. Pt reports he receives HD treatment at [facility]. Pt stated his optimal goal is to get better at [facility] and to return back to his mother's house if possible.
CM spoke to [facility] admissions direcytor and she confirmed that pt is for short term rehab, on Medicaid 15 day bed hold and pt will be accepted back when medically stable. No auth is required.
D/C plan: [facility] to continue on skilled services and transition for a LTC.
CM will follow with discharge plan updates as hospitalization progresses
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
[2025-03-10 15:15] VITALS: BP 143/93
--- NOTE | 2025-03-10 16:35 | W.PN.NEPH.HD ---
Assessment
-
Seen on HD. no complaints. VSS< access ok
dc CVC after HD, cx tip
Progress Note - Hemodialysis
-
Date of Service: March 10, 2025
Duration: 30 minutes and 3 hours
Potassium Bath: 3
Calcium Bath: 2.5
Opti-Dialyzer: 160
Ultrafiltration: Other (kg)
Blood Flow: 400
Dialysate Flow: 600
Heparin: 0
EPO: [id number]
[2025-03-10] MEDS: AMPICILLIN 108 MG IV (16:52)
[2025-03-10 17:15] VITALS: BP 143/93
[2025-03-10 17:29] LABS: Glucose - Point of Care 154 mg/dl (70-99)
[2025-03-10] MEDS: RETACRIT 10000 UNITS IV (17:29)
[2025-03-10] MEDS: LANTUS 0.06 UNITS SC (17:33)
[2025-03-10] MEDS: NOVOLOG FLEXPEN-LOW RESISTANCE 1 UNITS SC (17:33)
[2025-03-10 18:41] LABS: Hepatitis B Surface Antigen Negative (Negative)
[2025-03-10 18:59] LABS: Hepatitis B Surface Antibody Negative
[2025-03-10 19:20] VITALS: BP 140/80
--- NOTE | 2025-03-10 19:30 | W.PN.UPDATE ---
Update Note
Progress Note Update
I did see patient this evening. We discussed synovial white blood cell count findings from his knee aspirations yesterday. I discussed that these are suspicious for infection. No cultures have yet resulted from these aspirations however he is
bacteremic with Enterococcus. Did speak with infectious disease as well as primary team today. Certainly given the MRI findings of his right knee as well as the abscess posterior medial knee would recommend irrigation debridement. This discussed
at length with the patient. Will plan to order stat MRI of the left knee as well to evaluate for any potential abscesses soft tissue fluid collections in preparation for OR tomorrow. Tentatively planning for bilateral knee I&D tomorrow. Did
discuss the procedure in detail with the patient. We discussed risks benefits and alternatives to surgery. After discussion verbal consent was obtained. Will plan to obtain written informed consent prior to OR tomorrow. Please keep patient
n.p.o. and hold anticoagulation in preparation for OR. Will discuss with primary team. Please reach out any questions or concerns.
[2025-03-10] MEDS: VANCOCIN 150 IV (20:00)
[2025-03-10 21:14] LABS: Glucose - Point of Care 144 mg/dl (70-99)
[2025-03-10] MEDS: LIPITOR 20 MG PO (21:32)
[2025-03-10] MEDS: SEROQUEL 75 MG PO (21:32)
[2025-03-10] MEDS: STERILE WATER FOR INJECTION 10 ML IV (21:33)
[2025-03-10] MEDS: PERCOCET 5/325 1 TABLET PO (21:38)
[2025-03-10 23:18] VITALS: BP 127/72
[2025-03-11 03:08] VITALS: BP 136/79
[2025-03-11] MEDS: AMPICILLIN 108 MG IV ×2 (04:27→16:16)
[2025-03-11] MEDS: SYNTHROID 137 MCG PO (05:37)
[2025-03-11] MEDS: PERCOCET 5/325 1 TABLET PO ×3 (05:37→22:33)
[2025-03-11 05:43] LABS: Glucose - Point of Care 131 mg/dl (70-99)
[2025-03-11 05:44] VITALS: BMI 20.7
[2025-03-11 07:20] VITALS: BP 136/80
[2025-03-11 08:07] LABS: Blood Urea Nitrogen 25 mg/dl (9-20); Calcium 7.8 mg/dl (8.4-10.2); Carbon Dioxide 28 mmol/L (22-30); Chloride 100 mmol/L (98-107); Estimated Creatinine Clearance 28 ml/min; Glucose 98 mg/dl (70-99); Potassium 3.7 mmol/L (3.5-5.1); Sodium 136 mmol/L (135-145)
[2025-03-11] MEDS: NOVOLOG FLEXPEN-LOW RESISTANCE SC ×3 (08:42→17:47)
[2025-03-11] MEDS: FOLVITE 1 MG PO (08:45)
[2025-03-11] MEDS: ROCEPHIN 1000 MG IV ×2 (08:45→20:35)
[2025-03-11] MEDS: LIDOCAINE 4% PATCH 1 PATCH TOPICAL (08:45)
[2025-03-11] MEDS: VISBIOME 1 CAP PO (08:45)
[2025-03-11] MEDS: SENOKOT 8.6 MG PO ×2 (08:45→20:35)
[2025-03-11] MEDS: STERILE WATER FOR INJECTION 10 ML IV ×2 (08:46→20:35)
[2025-03-11] MEDS: HEPARIN SC ×2 (08:54→22:01)
--- NOTE | 2025-03-11 09:00 | W.PN.HOSP.TC ---
Today's Communication/Plan
-
see plan
Assessment / Plan
Assessment / Plan
Mr. Zuhair Posey is a 59-year-old male with IDDM 2, EtOH abuse, AIXA, hypothyroidism, H/O acute renal failure currently on HD, H/O septic arthritis of the bilateral knees with right patella removal currently on cefadroxil suppressive therapy that
presented to the hospital from his nursing facility with reported altered mental status. Also reportedly concerns for facial droop and speech deficits. AFVSS upon arrival, initial head CT unremarkable, chest x-ray with interstitial edema, brain
MRI unremarkable with no signs of acute CVA. Labs showed hemoglobin 8.0, creatinine 3.6, BUN 29, magnesium 1.5, albumin 2.6, TSH 44 with normal free T4. Iron studies with ferritin 568, TIBC 187, iron saturation 16%. Blood cultures taken on
arrival, was started on IV ceftriaxone and vancomycin in place of home cefadroxil due to knee effusions.
Patient recently was hospitalized at [facility]. Medical records currently pending.
HEAD CT 03/09/25
IMPRESSION:
No acute intracranial abnormality noted.
CXR 03/09/25
IMPRESSION:
Asymmetric interstitial edema versus patchy pneumonia. Small right pleural effusion.
Brain MRI 03/09/25
IMPRESSION:
Motion degradation.
No acute intracranial abnormality noted.
Bilateral Knee X-Ray 03/09/25
IMPRESSION:
Diffuse soft tissue swelling about the knees bilaterally as well as moderate bilateral suprapatellar effusions. Of particular note, findings are suggestive of numerous TINY BUBBLES OF AIR WITHIN THE MEDIAL/POSTERIOR SOFT TISSUES OF THE RIGHT KNEE
AND IN THE SUPRAPATELLAR REGION, CANNOT EXCLUDE INFECTION.
Bilateral degenerative changes.
Possible either fracture or a bony spur along the medial proximal right tibia versus cortical bony destructive process such as osteomyelitis.
Suggest MRI for more complete evaluation of the right knee.
Knee MRI 03/10/25
IMPRESSION:
Technically limited exam because of motion artifact
Markedly irregular contour along with concavity of articular surface of the posterior medial tibial plateau. Extensive subchondral marrow edema in the medial proximal tibia and adjacent medial femoral condyle. Patchy marrow edema elsewhere in the
distal femur, proximal tibia, patella. Sizable joint effusion containing debris. Findings are consistent with septic arthritis.
Large, amorphous fluid collection containing numerous gas bubbles within the soft tissues adjacent to the posteromedial aspect of the knee. Collection is worrisome for an abscess. The presence of numerous gas bubbles are worrisome for necrotizing
infection by a gas-forming organism (necrotizing cellulitis). The gas bubbles appear confined to the fluid collection at this time. Urgent surgical consultation recommended.
Complex tear posterior horn medial meniscus. Fragmentation of body of medial meniscus. Free edge tear of the anterior horn medial meniscus.
TTE 03/10/25
CONCLUSIONS
Normal biventricular size and systolic function without regional wall motion
abnormality. Estimated LVEF 60-65%.
No significant valve disease.
No prior study available for comparison.
Septic Arthritis Bilateral Knees with complicated fluid collection with gas bubbles medial aspect right knee
Enterococcus Bacteremia
-see x-ray and MRI results above; s/p arthrocentesis with fluid studies showing WBC 92,000 with > 90% PMN; no crystals seen
-MRI left knee and lumbar spine ordered
-appreciate ID and Orthopedics
-NPO for washout today
-continue IV Vancomycin/Ceftriaxone 1G BID and IV Ampicillin
-TTE results above, may need SONYA
-tunneled dialysis line removed this morning
-monitor epeat blood cultures for clearance
Metabolic Encephalopathy 2/2 Above
-resolved
Hypothyroidism with TSH 44
-Will await medical records from [facility], plan to increase levothyroxine to at least 150 mcg if no recent dose changes. Will need to have repeat TSH in 4-6
*still awaiting records; will repeat TSH tomorrow
Hypomagnesemia
-repleted
ESRD on HD
-Renal consult appreciated
-now with tunneled line removal given bacteremia
Full code
Renal diet
51 minutes spent on patient care
Anticipated Discharge: > 48 hours
Subjective/Interval History
-
Date of Service: March 11, 2025
no new complaints this morning; he wants to eat
he complains of lower back pain
Objective Data
-
Labs:
Laboratory Results
03/11/25 03/11/25
06:00 06:58
WBC Pending
Hgb Pending
Hct Pending
Plt Count Pending
Sodium 136
Potassium 3.7
Chloride 100
Carbon Dioxide 28
BUN 25 H
Creatinine 3.1 H
Glucose 98
Calcium 7.8 L
Vital Signs:
Vital Signs
Temp Pulse Resp BP Pulse Ox
98.4 F 74 18 136/80 96
03/11/25 07:20 03/11/25 07:20 03/11/25 07:20 03/11/25 07:20 03/11/25 07:20
I&O
03/10/25 03/11/25 03/12/25
06:59 06:59 06:59
Intake Total 360 / 360 240 / 240
Output Total 400 / 400
Balance 360 / 360 -160 / -160
Review of Systems
-
History Source: Patient
All other systems: Reviewed and negative
Physical Exam
-
General: No Apparent Distress
Respiratory: Clear to Auscultation; Negative Wheezes
Cardiac: Regular Rhythm and S1/S2
GI: Soft and Nontender
Musculoskeletal: Other (b/l knee swelling; right knee tenderness )
Skin: Warm and Dry; Negative Rash
Neuro: AO x 3
Psych: Calm
Data Reviewed
-
Diagnostic Radiology: Report Reviewed by me
Labs: Labs Reviewed by me
--- NOTE | 2025-03-11 09:31 | PTCARENOTE ---
IRAD RN- right chest wall HD catheter removed by RT D[place]R with sterile technique. sterile dressing placed. C/D/I at this time. dressing can be removed in 48 hours.
--- NOTE | 2025-03-11 09:32 | PN.IRAD.UPD ---
Update Note - IRAD
- -
Cleaned right sided Tunn HD with chloraprep and removed catheter. Site dressed with gauze and a primapore. Tip sent for culture.
Fabio Cade RT(R)()
[2025-03-11 11:05] VITALS: BP 148/90
--- NOTE | 2025-03-11 11:35 | W.PN.NEPH.PH ---
Today's Communication / Plan
-
HD
Assessment/Plan
-
59y M with PMH significant for DM-II, alcohol use disorder and acute renal failure requiring dialysis who presents to ED from [facility] for evaluation of mental status change.
Impression.
Acute kidney injury dialysis dependent Monday at [facility]
Altered mental status negative CAT scan and MRI for acute process
Questionable UTI
Anemia of chronic disease
Type 2 diabetes
PermCath= clear dry and intact
Plan.
No acute need for dialysis today
Plan for dialysis holiday at least [address] catheter on for dialysis on
-
-
Date of Service: March 11, 2025
CC / HPI / ROS
-
Chief Complaint:
ESRD
History of Present Illness:
Tolerated dialysis yesterday
Dialysis catheter removed this morning culture
BP stable
Antibiotics for Enterococcus sepsis
Review of Systems:
No chest pain or shortness of breath
Labs
-
Labs:
Sodium 136 mmol/L (135-145) 03/11/25 06:58
Potassium 3.7 mmol/L (3.5-5.1) 03/11/25 06:58
Chloride 100 mmol/L (98-107) 03/11/25 06:58
Carbon Dioxide 28 mmol/L (22-30) 03/11/25 06:58
BUN 25 mg/dl (9-20) H 03/11/25 06:58
Creatinine 3.1 mg/dL (0.7-1.3) H 03/11/25 06:58
eGFR 22.30 03/11/25 06:58
Glucose 98 mg/dl (70-99) 03/11/25 06:58
Calcium 7.8 mg/dl (8.4-10.2) L 03/11/25 06:58
Phosphorus 4.3 mg/dl (2.5-4.5) 03/09/25 05:59
Albumin 2.6 g/dl (3.5-5.0) L 03/09/25 00:58
Physical Exam
-
Vital Signs:
Vital Signs
Temp Pulse Resp BP Pulse Ox
98.2 F 79 18 148/90 97
03/11/25 11:05 03/11/25 11:05 03/11/25 11:05 03/11/25 11:05 03/11/25 11:05
Cardiovascular:: Regular rate and rhythm
Respiratory:: Bilateral: Coarse
Lung Excursion:: Normal
Abdomen:: Nontender
Bowel Sounds:: Normal
Extremity Edema:: None: Bilateral:
[2025-03-11 11:52] LABS: Glucose - Point of Care 81 mg/dl (70-99)
[2025-03-11 15:20] VITALS: BP 149/87
[2025-03-11 15:25] LABS: Hematocrit 36.3 % (39.0-52.0); Hemoglobin 11.6 g/dL (13.0-18.0); Mean Corpuscular Hgb 28.2 pg (27.0-31.0); Mean Corpuscular Volume 88.3 fL (80.0-94.0); Red Blood Cell Count 4.11 10^6/uL (4.70-6.10); Red Cell Dist. Width 16.3 % (11.5-14.5); White Blood Cell Count 3.5 10^3/uL (4.8-10.8)
[2025-03-11 15:43] LABS: Platelet Count 129 10^3/uL (130-400)
[2025-03-11 15:44] LABS: Mean Platelet Volume 10.4 fL (7.4-10.4)
--- NOTE | 2025-03-11 15:45 | PHA.VAN.FU ---
Vancomycin Assessment / Plan
- Assessment
Hemodialysis Schedule: MWF
Concomitant Antimicrobials: ampicillin, ceftriaxone
- Dosing Plan
Dosing by Level: Hold off on dosing today
- Monitoring Plan
Random Level: 03/12 06
- Follow Up
Pharmacy will continue to follow.
Vancomycin Follow UP
- -
Patient Age: 59
Patient Sex: Male
Vancomycin Day #: 3
Indication: Bacteremia
Requesting Provider: Dr. Garcia / Diana
Pertinent Antimicrobial Allergies:
NKDA
Height / Weight:
Height 6 ft 4 in
Actual Weight 77.247 kg
Pertinent Past Medical History: DM II, ESRD HD MWF
- Vital Signs / Lab Results
Temp Pulse Resp BP Pulse Ox
98.2 F 79 18 148/90 97
03/11/25 11:05 03/11/25 11:05 03/11/25 11:05 03/11/25 11:05 03/11/25 14:18
Lab Results - Hematology
03/09/25 03/09/25 03/10/25
00:58 05:59 07:41
WBC 5.9 5.4 4.2 L
03/11/25 03/11/25
06:00 14:35
WBC Cancelled 3.5 L
Lab Results - Chemistry
03/09/25 03/09/25 03/10/25
00:58 05:59 07:41
BUN 29 H 29 H 42 H
Creatinine 3.5 H 3.6 H 4.4 H*
Estimated Creat Clear 25 24 20
Albumin 2.6 L
03/11/25
06:58
BUN 25 H
Creatinine 3.1 H
Estimated Creat Clear 28
Albumin
03/09/25 03/09/25
00:58 05:00
Lactic Acid 0.8 Cancelled
Microbiology Results
03/10/25 14:18 Blood Culture - Preliminary
Blood/Venous No Growth in 24 hours- Final report to follow
03/09/25 01:34 Blood Culture - Preliminary
Blood/Venous Enterococcus faecalis
Gram Stain - Preliminary
03/09/25 00:58 Blood Culture - Preliminary
Blood/Venous Enterococcus faecalis
Gram Stain - Final
03/09/25 20:42 Body Fluid Culture - Preliminary
Knee - Left No Growth After 18-24 Hours
Gram Stain - Preliminary
03/09/25 20:42 Body Fluid Culture - Preliminary
Knee - Right No Growth After 18-24 Hours
Gram Stain - Preliminary
03/09/25 20:42 Body Fluid Culture - Preliminary
Synovial Fluid No Growth After 18-24 Hours
Gram Stain - Preliminary
03/09/25 15:38 MRSA Screen - Final
Nose No Methicillin Resistant Staphylococcus aureus isolated.
03/09/25 01:58 Urine Culture - Final
Urine NO GROWTH
Therapeutic Drug Monitoring
Random Vancomycin 14.4 ug/ml 03/10/25 07:40
--- NOTE | 2025-03-11 16:46 | W.PN.ID1 ---
Date of Service
Date of Service: March 11, 2025
Today's Communication
agree with washouts
continue ampicillin and ceftriaxone
stopped vancomycin
Assessment / Plan
Enterococcal Bacteremia
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
Suspected Enterococcal Septic Joint of the Bilateral Knees (disseminated infection)
Concern for possible Psoas abscess - Right lumbar pain
H/o EtOH use disorder, low ALT - possible cirrhosis though not previously diagnosed
on HD via RIJ
H/o multiple toe amputations bilaterally
- 03/09 blood cultures E faecalis
- repeat blood cultures 03/11 no growth to date, single set of blood cultures 03/10 no growth to date
- UA negative and not consistent with glomerulonephritis, and urine culture finalized negative - unlikely to be the source
- TTE, may also consider SONYA pending further blood cultures
- RF pending
- agree with plans for washout tentaively today, it seems to me that both knees are involved suggesting a disseminated infection and endocarditis
- MRI lumbar spine - delayed to tomorrow given need for MRI of the R knee today for surgical planning
- will follow up outpatient records from [facility] when available
- recommend line holiday - line removed, may get temp line
- stop vancomycin based on sensitivites
- c/w ampicillin 2 gm IV q12 hrs
- change ceftriaxone to 1 gm Q12,
Chief Complaint
-: Other (probable endocarditis, disseminated enterococcus, bilateral septic knees)
Subjective / Review of Systems
afebrile
bp stable
MRI of the L knee also consistent with septic joint
HD cath removed
Vital Signs / Physical Exam
Vital Signs
Vital Signs
Temp Pulse Resp BP Pulse Ox
97.9 F 77 16 149/87 97
03/11/25 15:20 03/11/25 15:20 03/11/25 15:20 03/11/25 15:20 03/11/25 15:20
Physical Exam
Constitutional: No Acute Distress
Cardiovascular: Regular Rate
Pulmonary: Symmetric and Non Labored
Gastrointestinal: Non Distended
Neurological: Negative Awake (sleeping and not disturbed)
Objective Data
Lab Data
Lab Results
03/11/25 14:35
03/11/25 06:58
ESR 98 mm/hour (0-20) H 03/10/25 07:41
Estimated Creat Clear 28 ml/min 03/11/25 06:58
Lactic Acid Cancelled 03/09/25 05:00
Total Bilirubin 0.5 mg/dl (0.2-1.3) 03/09/25 00:58
AST 19 U/L (17-59) 03/09/25 00:58
ALT < 10 U/L (0-50) 03/09/25 00:58
Alkaline Phosphatase 143 U/L (38-126) H 03/09/25 00:58
C-Reactive Protein 86.70 mg/L (0.0-10.00) H 03/10/25 07:41
Most recent labs reviewed.
Blood Culture Preliminary 03/11/25-1228
Enterococcus faecalis
Organism 1 Enterococcus faecalis
1. Enterococcus faecalis
M.I.C. RX
--------- ---
Ampicillin <=2 S
Gentamicin Synergy Screen >500 R
Vancomycin 2 S
Micro Results:
03/11/25 15:09 Blood Culture - Pending
Blood/Venous
03/11/25 14:35 Blood Culture - Pending
Blood/Venous
03/10/25 14:18 Blood Culture - Preliminary
Blood/Venous No Growth in 24 hours- Final report to follow
03/09/25 01:34 Blood Culture - Preliminary
Blood/Venous Enterococcus faecalis
Gram Stain - Preliminary
03/09/25 00:58 Blood Culture - Preliminary
Blood/Venous Enterococcus faecalis
Gram Stain - Final
03/09/25 20:42 Body Fluid Culture - Preliminary
Knee - Left No Growth After 18-24 Hours
Gram Stain - Preliminary
03/11/25 09:27 Catheter Tip Culture - Pending
Dialysis Line
03/09/25 20:42 Body Fluid Culture - Preliminary
Knee - Right No Growth After 18-24 Hours
Gram Stain - Preliminary
03/09/25 20:42 Body Fluid Culture - Preliminary
Synovial Fluid No Growth After 18-24 Hours
Gram Stain - Preliminary
03/09/25 15:38 MRSA Screen - Final
Nose No Methicillin Resistant Staphylococcus aureus isolated.
03/09/25 01:58 Urine Culture - Final
Urine NO GROWTH
[2025-03-11 17:46] LABS: Glucose - Point of Care 82 mg/dl (70-99)
[2025-03-11] MEDS: LANTUS SC (17:52)
--- NOTE | 2025-03-11 17:52 | PTCARENOTE ---
pt npo for OR for I&D washout. sugar check 82. Cross coverage made aware. order to hold [employer]. see MAR for proper documentation
--- NOTE | 2025-03-11 18:28 | W.PN.UPDATE ---
Update Note
Progress Note Update
Cross-cover- pte with relatively low BS and npo for procedure- could give 50-75% of long acting but given low dose can hold for now and reeval.
[2025-03-11 19:27] VITALS: BP 144/89
[2025-03-11] MEDS: LIPITOR 20 MG PO (22:01)
--- NOTE | 2025-03-11 22:48 | W.PN.UPDATE ---
Update Note
Progress Note Update
Did see and speak with patient this evening. Also reviewed his chart. Patient has been afebrile this evening and vitals are stable.
Due to lack of available OR staff, I explained him that we will be unable to take him to the OR tonight. Will plan for him to get some food and again plan to keep him n.p.o. at midnight in preparation for OR tomorrow for bilateral knee I&D.
Although understandably somewhat upset, patient did voice understanding and was agreement with this plan.
[2025-03-11 23:25] VITALS: BP 142/87
[2025-03-12] VITALS (10 sets, daily range): BP systolic 20–148; BP diastolic 67–93; BMI 21.1
[2025-03-12 00:31] LABS: Glucose - Point of Care 167 mg/dl (70-99)
[2025-03-12] MEDS: AMPICILLIN 108 MG IV (03:59)
[2025-03-12] MEDS: PERCOCET 5/325 1 TABLET PO ×3 (04:10→14:04)
[2025-03-12] MEDS: SYNTHROID 137 MCG PO (04:10)
[2025-03-12 06:02] LABS: Glucose - Point of Care 153 mg/dl (70-99)
[2025-03-12] MEDS: LIDOCAINE 4% PATCH TOPICAL ×2 (08:11)
[2025-03-12 08:12] LABS: % Eosinophils 8.3 % (0-6); % Immature Granulocytes 0.4 % (0-0.5); % Monocytes 10.5 % (1.7-9.3); % Neutrophils 61.8 % (42.2-75.2); Absolute Basophils 0.1 10^3/uL (0-0.2); Absolute Eosinophils 0.4 10^3/uL (0-0.7); Absolute Lymphocytes 0.9 10^3/uL (1.2-3.4); Absolute Monocytes 0.5 10^3/uL (0.1-0.6); Absolute Neutrophils 3.1 10^3/uL (1.4-6.5); Hematocrit 28.3 % (39.0-52.0); Hemoglobin 8.6 g/dL (13.0-18.0); Mean Corp Hgb Conc. 30.4 g/dL (33.0-37.0); Mean Corpuscular Hgb 28.1 pg (27.0-31.0); Mean Corpuscular Volume 92.5 fL (80.0-94.0); Mean Platelet Volume 9.5 fL (7.4-10.4); Nucleated Red Blood Cells % 0 % (-); Platelet Count 182 10^3/uL (130-400); Red Blood Cell Count 3.06 10^6/uL (4.70-6.10); Red Cell Dist. Width 16.4 % (11.5-14.5); White Blood Cell Count 5.1 10^3/uL (4.8-10.8)
[2025-03-12] MEDS: VISBIOME 1 CAP PO (08:12)
[2025-03-12] MEDS: HEPARIN SC (08:12)
[2025-03-12] MEDS: FOLVITE 1 MG PO (08:12)
[2025-03-12] MEDS: SENOKOT 8.6 MG PO ×2 (08:12→20:32)
[2025-03-12] MEDS: STERILE WATER FOR INJECTION 10 ML IV ×2 (08:13→20:39)
[2025-03-12] MEDS: ROCEPHIN 1000 MG IV ×2 (08:13→20:38)
[2025-03-12] MEDS: NOVOLOG FLEXPEN-LOW RESISTANCE 1 UNITS SC (08:14)
[2025-03-12 08:31] LABS: Blood Urea Nitrogen 31 mg/dl (9-20); Calcium 8.3 mg/dl (8.4-10.2); Carbon Dioxide 30 mmol/L (22-30); Chloride 100 mmol/L (98-107); Estimated Creatinine Clearance 22 ml/min; Glucose 148 mg/dl (70-99); Potassium 3.8 mmol/L (3.5-5.1); Sodium 135 mmol/L (135-145); eGFR 15.95
[2025-03-12 09:34] LABS: Free T4 0.89 ng/dl (0.78-2.19)
--- NOTE | 2025-03-12 11:33 | CM ---
CM following re: discharge planning.
Reviewed pt's chart, met with pt and spoke to pt's mother over the phone.
Pt expressed his appreciation regarding having his laptop, cell phone and glasses that was brought to him by [facility] director dental services yesterday.
Pt reports he has been staying at [facility] for 2 weeks, cannot even stand, staff using Ok lift to transfer to a chair. Pt reports he receives HD treatment at [facility]. Pt stated his optimal goal is to get better at [facility] and to
return back to his mother's house if possible.
CM spoke to [facility] director dental services and she confirmed that pt is for short term rehab, on Medicaid 15 day bed hold and pt will be accepted back when medically stable. No auth is required.
D/C plan: [facility] to continue on skilled services and transition for a LTC.
CM will follow with discharge plan updates as hospitalization progresses
[2025-03-12 11:53] LABS: Glucose - Point of Care 102 mg/dl (70-99)
[2025-03-12] MEDS: NOVOLOG FLEXPEN-LOW RESISTANCE SC ×2 (11:59→17:24)
--- NOTE | 2025-03-12 13:07 | W.PN.NEPH.PH ---
Today's Communication / Plan
-
Holding dialysis
Reevaluate tomorrow for need of temporary dialysis cath
Assessment/Plan
-
59y M with PMH significant for DM-II, alcohol use disorder and acute renal failure requiring dialysis who presents to ED from [facility] for evaluation of mental status change.
Impression.
Acute kidney injury dialysis dependent Monday at [facility]
Altered mental status negative CAT scan and MRI for acute process
Anemia of chronic disease
Type 2 diabetes
PermCath
Plan.
No acute need for dialysis today
Plan for dialysis holiday at least 2 days.
PermCath removed for line sepsis bacteremia enterococcal
Will place temporary dialysis catheter until blood cultures negative at least 72-hour
-
-
Date of Service: March 12, 2025
CC / HPI / ROS
-
Chief Complaint:
ESRD
History of Present Illness:
BP stable
Antibiotics for Enterococcus sepsis
Review of Systems:
No chest pain or shortness of breath
Labs
-
Labs:
WBC 5.1 10^3/uL (4.8-10.8) 03/12/25 07:31
RBC 3.06 10^6/uL (4.70-6.10) L 03/12/25 07:31
Hgb 8.6 g/dL (13.0-18.0) L D 03/12/25 07:31
Hct 28.3 % (39.0-52.0) L 03/12/25 07:31
Plt Count 182 10^3/uL (130-400) D 03/12/25 07:31
Sodium 135 mmol/L (135-145) 03/12/25 07:31
Potassium 3.8 mmol/L (3.5-5.1) 03/12/25 07:31
Chloride 100 mmol/L (98-107) 03/12/25 07:31
Carbon Dioxide 30 mmol/L (22-30) 03/12/25 07:31
BUN 31 mg/dl (9-20) H 03/12/25 07:31
Creatinine 4.1 mg/dL (0.7-1.3) H* 03/12/25 07:31
eGFR 15.95 03/12/25 07:31
Glucose 148 mg/dl (70-99) H 03/12/25 07:31
Calcium 8.3 mg/dl (8.4-10.2) L 03/12/25 07:31
Phosphorus 4.3 mg/dl (2.5-4.5) 03/09/25 05:59
Albumin 2.6 g/dl (3.5-5.0) L 03/09/25 00:58
Physical Exam
-
Vital Signs:
Vital Signs
Temp Pulse Resp BP Pulse Ox
97.9 F 77 16 146/89 97
03/12/25 11:00 03/12/25 11:00 03/12/25 11:00 03/12/25 11:00 03/12/25 11:00
Cardiovascular:: Regular rate and rhythm
Respiratory:: Bilateral: Coarse
Lung Excursion:: Normal
Abdomen:: Nontender
Bowel Sounds:: Normal
Extremity Edema:: None: Bilateral:
--- NOTE | 2025-03-12 13:35 | W.PN.HOSP.TC ---
Today's Communication/Plan
-
Continue antibiotics
N.p.o. for OR today
Follow repeat cultures
Dialysis via tunneled cath
Increase levothyroxine
Assessment / Plan
Assessment / Plan
Mr. Zuhair Posey is a 59-year-old male with IDDM 2, EtOH abuse, AIXA, hypothyroidism, H/O acute renal failure currently on HD, H/O septic arthritis of the bilateral knees with right patella removal currently on cefadroxil suppressive therapy that
presented to the hospital from his nursing facility with reported altered mental status. Also reportedly concerns for facial droop and speech deficits. AFVSS upon arrival, initial head CT unremarkable, chest x-ray with interstitial edema, brain
MRI unremarkable with no signs of acute CVA. Labs showed hemoglobin 8.0, creatinine 3.6, BUN 29, magnesium 1.5, albumin 2.6, TSH 44 with normal free T4. Iron studies with ferritin 568, TIBC 187, iron saturation 16%. Blood cultures taken on
arrival, was started on IV ceftriaxone and vancomycin in place of home cefadroxil due to knee effusions.
Patient recently was hospitalized at [facility]. Medical records currently pending.
#Septic Arthritis Bilateral Knees
#Enterococcus Bacteremia
-see x-ray of the knees and MRI both consistent with septic arthritis bilaterally, complicated fluid collection with gas bubbles of medial right knee
-s/p arthrocentesis with fluid studies showing WBC 92,000 with > 90% PMN; no crystals seen
-MRI left knee and lumbar spine ordered to assess for metastatic infection, results pending
-Had removal of dialysis line on 03/11; line tip culture coming back positive for Enterococcus
-Currently on IV ceftriaxone and ampicillin; status posttreatment with IV vancomycin
-Planning for OR today (03/12) for bilateral knee I&D and washout
-Continue current antibiotic regimen, repeat blood culture per ID
-Appreciate ID and Orthopedics
-NPO for washout today
#Metabolic Encephalopathy
-2/2 Above
-resolved
#Hypothyroidism with TSH 44
-Will await medical records from [facility],
-plan to increase levothyroxine to at least 150 mcg if no recent dose changes.
-Repeat thyroid studies here near same as last
-Will increase levothyroxine starting tomorrow morning to 150 mcg
-Will need to have repeat TSH in 4-6
#Hypomagnesemia
-repleted
#ESRD on HD
-Renal consult appreciated
-now with tunneled line removal given bacteremia
#IDDM 2
-Home regimen includes Lantus 6 units nightly and ISS with Accu-Cheks
-Remains on home regimen with well-controlled blood sugars
SQ heparin
Full code
Renal diet
Anticipated Discharge: > 48 hours
Subjective/Interval History
-
Date of Service: March 12, 2025
Seen and examined at the bedside this morning prior to the OR. No acute vents overnight. AFVSS upon my assessment
He denies any complaints as of this morning other than not being able to eat.
Hemoglobin did drop though he hemoglobin on 03/11 @ 11.6 is likely an outlier. No bleeding reported
Objective Data
-
Labs:
Laboratory Results
03/12/25
07:31
WBC 5.1
Hgb 8.6 L D
Hct 28.3 L
Plt Count 182 D
Sodium 135
Potassium 3.8
Chloride 100
Carbon Dioxide 30
BUN 31 H
Creatinine 4.1 H*
Glucose 148 H
Calcium 8.3 L
Vital Signs:
Vital Signs
Temp Pulse Resp BP Pulse Ox
97.9 F 77 16 146/89 97
03/12/25 11:00 03/12/25 11:00 03/12/25 11:00 03/12/25 11:00 03/12/25 11:00
I&O
03/11/25 03/12/25 03/13/25
06:59 06:59 06:59
Intake Total 240 / 240 90 /
Output Total 400 / 400
Balance -160 / -160
Review of Systems
-
History Source: Patient
All other systems: Reviewed and negative
Physical Exam
-
General: Well Developed, No Apparent Distress and Appears Chronically Ill
HEENT: Normocephalic, Atraumatic, Moist Mucous Membranes and Anicteric
Respiratory: Clear to Auscultation and Non Labored Respirations
Cardiac: Regular Rhythm and S1/S2; Negative Murmur, Rub or Gallop
GI: Soft, Nontender, Nondistended and Normal Bowel Sounds
Musculoskeletal: No Clubbing, No Cyanosis, No Edema and Other (Bilateral knee effusions with warmth, tenderness; missing right patella)
Skin: Warm, Dry and Normal Turgor; Negative Rash
Neuro: AO x 3 and Nonfocal/Grossly Intact; Negative Tremors
Psych: Calm
Data Reviewed
-
Labs: Labs Reviewed by me and Discussed with Patient
--- NOTE | 2025-03-12 13:50 | W.PN.ID1 ---
Date of Service
Date of Service: March 12, 2025
Today's Communication
c/w current antibiotics
can delay MRI lumbar spine until after restarting HD
currently on a line holiday, note cath tip culture was positive for E faecalis
Assessment / Plan
Enterococcal Bacteremia
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
Suspected Enterococcal Septic Joint of the Bilateral Knees (disseminated infection)
Concern for possible Psoas abscess - Right lumbar pain
H/o EtOH use disorder, low ALT - possible cirrhosis though not previously diagnosed
on HD via RIJ
H/o multiple toe amputations bilaterally
- 5/4 blood cultures E faecalis
- repeat blood cultures 5/6 no growth to date, single set of blood cultures 5/5 no growth to date
- single set of blood cultures this AM - no growth to date, if 5/6 blood cultures become positive then will send second set to complete the pair tomorrow
- 5/6 cath tip culture - E faecalis
- UA negative and not consistent with glomerulonephritis, and urine culture finalized negative - unlikely to be the source
- TTE, may also consider SONYA pending further blood cultures
- RF pending
- agree with plans for washout tentatively today, it seems to me that both knees are involved suggesting a disseminated infection and endocarditis
- MRI lumbar spine planned - can delay to after next dialysis to avoid giving two contrast loads in the interdialysis time
- will follow up outpatient records from [facility] when available
- on line holiday may get temp line
- c/w ampicillin 2 gm IV q12 hrs
- c/w ceftriaxone to 1 gm Q12
Possible Developing eosinophilia
- AEC 400
- trend differential
Chief Complaint
-: Other (probable endocarditis, disseminated enterococcus, bilateral septic knees)
Subjective / Review of Systems
afebrile
bp stable
OR staff were not available to do procedure last night and it was rescheduled
back pain ongoing
no new complaints
Vital Signs / Physical Exam
Vital Signs
Vital Signs
Temp Pulse Resp BP Pulse Ox
97.9 F 77 16 146/89 97
03/12/25 11:00 03/12/25 11:00 03/12/25 11:00 03/12/25 11:00 03/12/25 11:00
Physical Exam
Constitutional: No Acute Distress and Chronically Ill
Cardiovascular: Regular Rate and S1/S2; Negative Murmur or Rub
Pulmonary: Clear and Symmetric; Negative Wheezes or Rales
Gastrointestinal: Soft, Non Tender, Non Distended and Normal Bowel Sounds
Musculoskeletal: Other (bilateral knees warm, swollen, tender, fluctuant, erythematous)
Skin: Warm and Dry; Negative Rash or Jaundice
Wound: Other (HD cath site dressing clean, dry, intact)
Objective Data
Lab Data
Lab Results
03/12/25 07:31
03/12/25 07:31
ESR 98 mm/hour (0-20) H 03/10/25 07:41
Estimated Creat Clear 22 ml/min 03/12/25 07:31
Lactic Acid Cancelled 03/09/25 05:00
Total Bilirubin 0.5 mg/dl (0.2-1.3) 03/09/25 00:58
AST 19 U/L (17-59) 03/09/25 00:58
ALT < 10 U/L (0-50) 03/09/25 00:58
Alkaline Phosphatase 143 U/L (38-126) H 03/09/25 00:58
C-Reactive Protein 86.70 mg/L (0.0-10.00) H 03/10/25 07:41
Most recent labs reviewed.
Leukopenia and thrombocytopenia resolved today
Note AEC is 400 - follow
Micro Results:
03/09/25 20:42 Body Fluid Culture - Preliminary
Synovial Fluid No Growth After 48 Hours
Gram Stain - Preliminary
03/09/25 20:42 Body Fluid Culture - Preliminary
Knee - Right No Growth After 48 Hours
Gram Stain - Preliminary
03/09/25 20:42 Body Fluid Culture - Preliminary
Knee - Left No Growth After 48 Hours
Gram Stain - Preliminary
03/11/25 09:27 Catheter Tip Culture - Preliminary
Dialysis Line Enterococcus species
03/12/25 07:31 Blood Culture - Pending
Blood/Venous
03/09/25 00:58 Blood Culture - Final
Blood/Venous Enterococcus faecalis
Gram Stain - Final
03/11/25 15:09 Blood Culture - Pending
Blood/Venous
03/11/25 14:35 Blood Culture - Pending
Blood/Venous
03/10/25 14:18 Blood Culture - Preliminary
Blood/Venous No Growth in 24 hours- Final report to follow
03/09/25 01:34 Blood Culture - Preliminary
Blood/Venous Enterococcus faecalis
Gram Stain - Preliminary
03/09/25 15:38 MRSA Screen - Final
Nose No Methicillin Resistant Staphylococcus aureus isolated.
03/09/25 01:58 Urine Culture - Final
Urine NO GROWTH
[2025-03-12] MEDS: AMPICILLIN IV (15:51)
[2025-03-12 15:54] LABS: Glucose - Point of Care 95 mg/dl (70-99)
--- NOTE | 2025-03-12 17:41 | OR.RPT ---
Operative Report
Operative Report
Date
March 12, 2025
Anesthesia Type:
General
Operative Indications:
Aspirate and imaging findings concerning for bilateral knee septic arthritis in the setting of bacteremia, imaging of fluid collection gas-forming posteromedial knee right knee
Operative Findings :
Purulent fluid noted both intra-articular right and left knee, significant purulence noted posterior medial fluid collection right knee
Complications:
None
Implants:
None
Procedure and Technique:
Bilateral knee arthrotomy, irrigation debridement, sharp and excisional in nature bilateral knee , I&D posterior medial knee abscess extra-articular
INDICATIONS FOR PROCEDURE:
59-year-old male recent history of septic arthritis multiple infections treated at outside hospital. Patient presented to the emergency department here with altered mental status was found to have positive blood cultures for Enterococcus.
Bilateral knees were aspirated imaging findings in addition to aspirate synovial fluid analysis was concerning for bilateral knee osteoarthritis. Additionally imaging was concerning for gas-forming bacteria fluid collection/abscess posterior medial
right knee. I had a long discussion with the patient regarding diagnosis and treatment options. We discussed postsurgical nonsurgical options. I recommendation proceed with bilateral knee arthrotomy irrigation debridement in addition to
irrigation debridement posterior medial knee extra-articular abscess. We discussed risks benefits alternatives surgery. Discussed usual expected perioperative postoperative course. After discussion written informed consent was obtained.
OPERATIVE PROCEDURE:
Patient was seen and identified in the preoperative holding area. Operative site was marked. All questions were addressed and answered. Was taken to the operating room where general anesthesia was administered. Bilateral nonsterile tourniquets
were applied. Bilateral lower extremities were then prepped and draped in normal sterile fashion. Timeout was performed again identifying the correct operative cavity. No preoperative antibiotics were given 2/2 scheduled antibiotics and
obtainment of cultures. Began with left knee. The anterior knee surgical incision from previous surgery was utilized. Sharp dissection was carried through skin subcutaneous tissues. Limited medial parapatellar arthrotomy was performed. There is
significant extravasation of purulent fluid and debris. Sharp excisional debridement was performed utilizing knife, rongeur as well as curette. Approximately 3 L of normal saline solution was then used to copiously irrigate the knee. Visualized
articular surface was intact. Cultures were obtained. Wound was then closed in layered fashion utilizing #1 PDS suture for deep fascial layer, 2-0 PDS suture for cutaneous layer shelly for skin. Hemovac drain was placed.
Attention was then turned to the right knee. Anterior incision was made. Sharp dissection was carried through skin subcutaneous tissues. Limited medial parapatellar arthrotomy was performed. Again significant extravasation of purulent fluid and
debris. Sharp excisional debridement was performed utilizing knife, curette, rongeur. Cultures were obtained. Wound was copiously irrigated with normal saline solution approximately 3 L. Hemovac drain was placed. Visualized articular surface
was intact. Wound was then closed in layered fashion utilizing #1 PDS suture for deep fascial layer, 2-0 PDS suture for subcutaneous layer and shelly for skin.
Attention was then turned to the posterior medial knee abscess. Incision was made over medial knee. Sharp dissection was carried through skin subcutaneous tissues. Blunt dissection was then carried down through a rent in the fascial layer between
the VMO and sartorius. Again there was large extravasation of purulent fluid and debris. Blunt dissection was carried posteriorly with again significant further extravasation of purulence. Wound was jillian irrigated with normal saline solution
approximate 3 L. Cultures obtained. Sharp excisional debridement was performed utilizing a rongeur, knife and curette. A ADDIE drain was placed. Wound was closed in layered fashion utilizing #1 PDS suture to loosely approximate rent and deep
fascial layer. 2-0 PDS suture was used for subcutaneous layer and shelly for skin. Sterile dressings were applied consisting of Xeroform, 4 x 4 gauze, ABD Webril Son. Anesthesia was reversed and patient was taken to PACU in stable condition.
Postoperative plans were include follow-up of intraoperative cultures. Monitoring of drains. Continue IV antibiotics per infectious disease recommendations
Disposition:
PACU stable condition
[2025-03-12 17:48] LABS: Glucose - Point of Care 111 mg/dl (70-99)
[2025-03-12] MEDS: DILAUDID 0.5 MG IV (18:08)
[2025-03-12] MEDS: NSS 1000 IV (18:36)
--- NOTE | 2025-03-12 18:37 | PTCARENOTE ---
Received pt from PACU, VSS, 2Lo2, B/L hemovac drains placed to knees with additional ADDIE to right knee. Pt drowsy but forgetful. No c/o pain at this time, IVF hung, dinner ordered and on the way. No new orders at this time.
[2025-03-12 20:20] LABS: Glucose - Point of Care 220 mg/dl (70-99)
[2025-03-12] MEDS: COLACE 100 MG PO (20:32)
[2025-03-12] MEDS: LANTUS 0.06 UNITS SC (20:32)
[2025-03-12] MEDS: HEPARIN 5000 UNITS SC (20:33)
[2025-03-12] MEDS: DILAUDID 0.25 MG IV (20:56)
[2025-03-12] MEDS: LIPITOR 20 MG PO (22:33)
[2025-03-12] MEDS: SEROQUEL 75 MG PO (22:33)
[2025-03-13] VITALS (10 sets, daily range): BP systolic 112–146; BP diastolic 66–93; PULSE 89; O2SAT 97; BMI 21.0
--- NOTE | 2025-03-13 01:35 | PTCARENOTE ---
Pt found to have pulled R knee hemovac out 'while asleep, because he was having a dream' pt at times has confused speech, not making sense. Oriented to self and place but confused to time. Pt warned that he would need mitts or restraints if he
continues to pull at lines/tubes. Pt agitated at this statement, pt states he didn't pull out drain. Site is not currently bleeding and is covered. VSS. House [facility] made aware as well as ortho. No new orders at this time, bed alarm on and
activated.
An hour later pt pulled out R knee ADDIE drain. Pt states he doesn't know what happened or why he pulled it out. ELE[facility] notified and orders placed for b/l wrist restraints. Pt agitated that he has restraints on, pt educated on importance of
restraints and reasoning, pt continues yelling out.
[2025-03-13] MEDS: AMPICILLIN 108 MG IV ×2 (04:25→16:41)
[2025-03-13] MEDS: SYNTHROID 150 MCG PO (05:42)
[2025-03-13] MEDS: DILAUDID 0.25 MG IV ×5 (05:42→21:36)
[2025-03-13 07:33] LABS: % Basophils 0.5 % (0-2); % Immature Granulocytes 0.5 % (0-0.5); % Monocytes 3.8 % (1.7-9.3); % Neutrophils 81.2 % (42.2-75.2); Absolute Lymphocytes 0.6 10^3/uL (1.2-3.4); Absolute Monocytes 0.2 10^3/uL (0.1-0.6); Absolute Neutrophils 3.3 10^3/uL (1.4-6.5); Hematocrit 22.9 % (39.0-52.0); Hemoglobin 7.1 g/dL (13.0-18.0); Mean Corpuscular Hgb 28.1 pg (27.0-31.0); Mean Corpuscular Volume 90.5 fL (80.0-94.0); Mean Platelet Volume 9.7 fL (7.4-10.4); Nucleated Red Blood Cells % 0 % (-); Platelet Count 175 10^3/uL (130-400); Red Blood Cell Count 2.53 10^6/uL (4.70-6.10); Red Cell Dist. Width 16.2 % (11.5-14.5)
--- NOTE | 2025-03-13 07:41 | W.PN.ORTHO ---
Today's Communication / Plan
-
59-year-old male dialysis bacteremia postop day 1 status post irrigation debridement bilateral knee septic arthritis, additional I&D posterior medial knee extra-articular abscess
Weightbearing as tolerated bilateral lower extremities
PT OT
Pain control
Continue IV antibiotics per infectious disease recommendations
Follow-up intraoperative cultures
DVT prophylaxis
Will plan to change dressings later this evening approximate 24 hours postop
No current plans for return to the OR for additional orthopedic intervention
Subjective
.
.:
Patient resting comfortably this morning. Reports that he did have a 'fit' overnight while trimming of removing gas lines from his brother's truck. Unfortunately this did result in him being drains from his right leg.
Vital Signs and Labs
.
Vital Signs and Labs:
Lab Results
03/13/25 06:43
Temp Pulse Resp BP Pulse Ox
98.4 F 81 16 112/66 94
03/13/25 03:00 03/13/25 03:00 03/13/25 03:00 03/13/25 03:00 03/13/25 03:00
Physical Exam
-
Musculoskeletal bilateral lower extremities
Dressings in place clean dry and intact without evidence of drainage
Hemovac drain remains in left knee with minimal bloody output
Positive ankle dorsiflexion, plantarflexion bilateral lower extremities
Sensation at baseline
[2025-03-13] MEDS: COLACE 100 MG PO ×2 (07:44→21:28)
[2025-03-13] MEDS: FOLVITE 1 MG PO (07:44)
[2025-03-13] MEDS: VISBIOME 1 CAP PO (07:44)
[2025-03-13] MEDS: HEPARIN 5000 UNITS SC ×2 (07:45→21:30)
[2025-03-13] MEDS: SENOKOT 8.6 MG PO ×2 (07:45→21:29)
[2025-03-13] MEDS: ROCEPHIN 1000 MG IV ×2 (07:46→21:28)
[2025-03-13] MEDS: STERILE WATER FOR INJECTION 10 ML IV ×2 (07:46→21:28)
[2025-03-13 08:02] LABS: Glucose - Point of Care 267 mg/dl (70-99)
[2025-03-13 08:08] LABS: Blood Urea Nitrogen 39 mg/dl (9-20); Calcium 7.9 mg/dl (8.4-10.2); Carbon Dioxide 24 mmol/L (22-30); Chloride 98 mmol/L (98-107); Estimated Creatinine Clearance 18 ml/min; Glucose 273 mg/dl (70-99); Magnesium 1.5 mg/dl (1.6-2.3); Phosphorus 6.6 mg/dl (2.5-4.5); Potassium 4.8 mmol/L (3.5-5.1); Sodium 134 mmol/L (135-145); eGFR 12.57
[2025-03-13] MEDS: LIDOCAINE 4% PATCH TOPICAL (08:18)
--- NOTE | 2025-03-13 09:11 | W.PN.UPDATE ---
Update Note
Progress Note Update
I saw and evaluated the patient. I reviewed the resident�s seperately documented note and agree with findings and plan as documented in the resident�s note with the following additions/corrections
Subjective
remains afebrile
bp stable
Went to the OR: with the left knee there was significant purulent fluid and debris, cultures were obtained. Right knee also with significant extravasation of purulent fluid and debris
Confusion overnight
Pulled out R knee hemovac stated he was having a dream. Orthopedics was notified by nursing.
An hour later pulled out R knee ADDIE drain; restraints were placed.
No plans for further surgery at this time
Labs reviewed:
note that hgb is dropping post operatively as expected
AEC 0 today
Physical Exam
Constitutional: No Acute Distress and Chronically Ill
Cardiovascular: Regular Rate and S1/S2; Negative Murmur or Rub
Pulmonary: Clear and Symmetric; Negative Wheezes or Rales
Gastrointestinal: Soft, Non Tender, Non Distended and Normal Bowel Sounds
Musculoskeletal: Other post operative dressings in place, small amount of strikethrough otherwise clean, dry, intact
Skin: Warm and Dry; Negative Rash or Jaundice
Wound: Other (HD cath site dressing clean, dry, intact)
Assessment and Plan:
Enterococcal Bacteremia
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
Suspected Enterococcal Septic Joint of the Bilateral Knees (disseminated infection)
Concern for possible Psoas abscess - Right lumbar pain
H/o EtOH use disorder, low ALT - possible cirrhosis though not previously diagnosed
on HD via [facility]
H/o multiple toe amputations bilaterally
- / blood cultures E faecalis
- repeat blood cultures /6 no growth to date, single set of blood cultures / no growth to date
- single set of blood cultures / - no growth to date, if 5/6 blood cultures become positive then will send second set to complete the pair tomorrow
- /6 cath tip culture - E faecalis
- 03/12 OR cultures x3 in progress - gram stains not yet available
- UA negative and not consistent with glomerulonephritis, and urine culture finalized negative - unlikely to be the source
- TTE, may also consider SONYA pending further blood cultures
- RF pending
- MRI lumbar spine planned - can delay to after next dialysis to avoid giving two contrast loads in the interdialysis time
- will follow up outpatient records from [facility] when available
- on line holiday may get temp line today or tomorrow; then after HD will reschedule MRI lumbar spine
- c/w ampicillin 2 gm IV q12 hrs
- c/w ceftriaxone to 1 gm Q12
- plan at least a 6 week course of IV antibiotics - duration could be longer pending MRI lumbar spine
- note that patient has self removed two devices, if a third is removed then I will have concerns about placement of a PICC line, though he has tolerated the HD line without issue in the past
Possible Developing eosinophilia
- AEC 0 today
- recheck differential weekly, will order for monday
[2025-03-13] MEDS: NOVOLOG FLEXPEN-LOW RESISTANCE 3 UNITS SC ×2 (09:51→11:27)
--- NOTE | 2025-03-13 11:20 | W.PN.NEPH.PH ---
Today's Communication / Plan
-
Temporary dialysis cath
Assessment/Plan
-
59y M with PMH significant for DM-II, alcohol use disorder and acute renal failure requiring dialysis who presents to ED from [facility] for evaluation of mental status change.
Impression.
Acute kidney injury dialysis dependent Monday at [facility]
Altered mental status negative CAT scan and MRI for acute process
Anemia of chronic disease
Type 2 diabetes
PermCath
Plan.
No acute need for dialysis today
Plan for dialysis holiday at least 2 days.
PermCath removed for line sepsis bacteremia enterococcal
Will place temporary dialysis catheter until blood cultures negative at least 72-hour
Temporary catheter ordered today via IR
-
-
Date of Service: March 13, 2025
CC / HPI / ROS
-
Chief Complaint:
ESRD
History of Present Illness:
BP stable
Antibiotics for Enterococcus sepsis
Review of Systems:
No chest pain or shortness of breath
Labs
-
Labs:
WBC 4.0 10^3/uL (4.8-10.8) L 03/13/25 06:43
RBC 2.53 10^6/uL (4.70-6.10) L 03/13/25 06:43
Hgb 7.1 g/dL (13.0-18.0) L 03/13/25 06:43
Hct 22.9 % (39.0-52.0) L 03/13/25 06:43
Plt Count 175 10^3/uL (130-400) 03/13/25 06:43
Sodium 134 mmol/L (135-145) L 03/13/25 06:43
Potassium 4.8 mmol/L (3.5-5.1) D 03/13/25 06:43
Chloride 98 mmol/L (98-107) 03/13/25 06:43
Carbon Dioxide 24 mmol/L (22-30) 03/13/25 06:43
BUN 39 mg/dl (9-20) H 03/13/25 06:43
Creatinine 5.0 mg/dL (0.7-1.3) H* 03/13/25 06:43
eGFR 12.57 03/13/25 06:43
Glucose 273 mg/dl (70-99) H 03/13/25 06:43
Calcium 7.9 mg/dl (8.4-10.2) L 03/13/25 06:43
Phosphorus 6.6 mg/dl (2.5-4.5) H 03/13/25 06:43
Albumin 2.6 g/dl (3.5-5.0) L 03/09/25 00:58
Physical Exam
-
Vital Signs:
Vital Signs
Temp Pulse Resp BP Pulse Ox
98.1 F 80 17 124/73 97
03/13/25 08:00 03/13/25 08:00 03/13/25 08:00 03/13/25 08:00 03/13/25 08:57
Cardiovascular:: Regular rate and rhythm
Respiratory:: Bilateral: Coarse
Lung Excursion:: Normal
Abdomen:: Nontender
Bowel Sounds:: Normal
Extremity Edema:: None: Bilateral:
[2025-03-13 11:23] LABS: Glucose - Point of Care 257 mg/dl (70-99)
--- NOTE | 2025-03-13 11:35 | PTCARENOTE ---
Pt ripped out right hemovac and ADDIE drains overnight. Dr Woo in to see pt, pulled left hemovac drain this AM. This RN went in to find patient with B/L knee dressings ripped off andon floor, confused, and agitated. Pt reoriented, made aware,
B/L knees redressed by this RN. Hgb this AM 7.1, primary MD made aware, 1 unit PRBC ordered and infusing. No new orders at this time.
[2025-03-13 12:11] LABS: Rheumatoid Agglutinin Less Than 10 IU (<10 IU)
--- NOTE | 2025-03-13 12:53 | W.PN.ID1 ---
Addendum entered and electronically signed by Latisha Ortiz MD 03/13/25 16:27:
I saw and evaluated the patient. I reviewed the resident�s seperately documented note and agree with findings and plan as documented in the resident�s note with the following additions/corrections
Subjective
remains afebrile
bp stable
Went to the OR: with the left knee there was significant purulent fluid and debris, cultures were obtained. Right knee also with significant extravasation of purulent fluid and debris
Confusion overnight
Pulled out R knee hemovac stated he was having a dream. Orthopedics was notified by nursing.
An hour later pulled out R knee ADDIE drain; restraints were placed.
No plans for further surgery at this time
Labs reviewed:
note that hgb is dropping post operatively as expected
AEC 0 today
Physical Exam
Constitutional: No Acute Distress and Chronically Ill
Cardiovascular: Regular Rate and S1/S2; Negative Murmur or Rub
Pulmonary: Clear and Symmetric; Negative Wheezes or Rales
Gastrointestinal: Soft, Non Tender, Non Distended and Normal Bowel Sounds
Musculoskeletal: Other post operative dressings in place, small amount of strikethrough otherwise clean, dry, intact
Skin: Warm and Dry; Negative Rash or Jaundice
Wound: Other (HD cath site dressing clean, dry, intact)
Assessment and Plan:
Enterococcal Bacteremia
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
Suspected Enterococcal Septic Joint of the Bilateral Knees (disseminated infection)
Concern for possible Psoas abscess - Right lumbar pain
H/o EtOH use disorder, low ALT - possible cirrhosis though not previously diagnosed
on HD via [facility]
H/o multiple toe amputations bilaterally
- / blood cultures E faecalis
- repeat blood cultures /6 no growth to date, single set of blood cultures / no growth to date
- single set of blood cultures / - no growth to date, if 5/6 blood cultures become positive then will send second set to complete the pair tomorrow
- 5/6 cath tip culture - E faecalis
- 03/12 OR cultures x3 in progress - gram stains not yet available
- UA negative and not consistent with glomerulonephritis, and urine culture finalized negative - unlikely to be the source
- TTE, may also consider SONYA pending further blood cultures
- RF pending
- MRI lumbar spine planned - can delay to after next dialysis to avoid giving two contrast loads in the interdialysis time
- will follow up outpatient records from [facility] when available
- on line holiday may get temp line today or tomorrow; then after HD will reschedule MRI lumbar spine
- c/w ampicillin 2 gm IV q12 hrs
- c/w ceftriaxone to 1 gm Q12
- plan at least a 6 week course of IV antibiotics - duration could be longer pending MRI lumbar spine
- note that patient has self removed two devices, if a third is removed then I will have concerns about placement of a PICC line, though he has tolerated the HD line without issue in the past
Possible Developing eosinophilia
- AEC 0 today
- recheck differential weekly, will order for monday
AW
Original Note:
Date of Service
Date of Service: March 13, 2025
Patient seen and examined at bedside. Patient reportedly reports knee Hemovac and ADDIE drains overnight, intermittently confused and agitated.
Patient reports that he does not know what his diagnosis is and wants to know history of diagnosis. He reports no fever, chills, chest pain, SOB, cough, dysuria or rigors.
Subjectively, patient is afebrile, VSS, WBC count 4.0, sodium 134, A1c 5.2, serum glucose 273. He is currently on line holiday as given catheter infection. He is intermittently confused and tangential with history.
Today's Communication
Continue ceftriaxone 1 g every 12 hours
Continue ampicillin 2 g IV every 12 hours
Temporary dialysis catheter today until blood cultures negative for 72 hours
Follow blood and wound cultures
Assessment / Plan
59-year-old female who presented with altered mental status and was found to have positive blood cultures for Enterococcus. S/p bilateral knee aspiration, imaging consistent with bilateral knee osteoarthritis.
Assessment and plan:
#Enterococcal Bacteremia
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
#Suspected Enterococcal Septic Joint of the Bilateral Knees (disseminated infection)
#Concern for possible Psoas abscess - Right lumbar pain
#H/o EtOH use disorder, low ALT - possible cirrhosis though not previously diagnosed
#On HD via [facility] (on line holiday)
#H/o multiple toe amputations bilaterally
- Blood cultures x 2 03/09 and catheter tip culture 03/11 all positive for Enterococcus faecalis.
- Repeat blood cultures 03/11 NGTD in 48 hours.
- Anaerobic bilateral knee wound cultures 03/12 in progress.
- UA negative and not consistent with glomerulonephritis, and urine culture finalized negative - unlikely to be the source.
- Eosinophilia resolved; AIN, DRESS syndrome unlikely.
- TTE 03/10 negative for any significant valvular disease.
- Given bilateral knee septic arthritis, highly suspect chronic bacteremia with potential endocarditis. Will get SONYA to evaluate.
- RF negative.
- Agree with MRI of lumbar spine.
- Appreciate surgery.
- Continue ampicillin 2 gm IV q12 hrs and ceftriaxone to 1 gm Q12. Total of 6 weeks of IV antibiotics planned pending MRI results.
- Agree with temporary dialysis catheter until blood cultures negative for 72 hours.
- Follow blood and wound cultures.
- Will continue to follow patient
Chief Complaint
-: Other (Bilateral knee septic arthritis, probable endocarditis, disseminated enterococcus.)
Subjective / Review of Systems
Review of Systems: No Fever, No Chills, No Headache, No Stiff Neck, No Cough, No Chest Pain, No Palpitations, No Abdominal Pain, Vomiting, No Diarrhea, No Dysuria, Joint Pain and No Skin Rash
Vital Signs / Physical Exam
Vital Signs
Vital Signs
Temp Pulse Resp BP Pulse Ox
97.8 F 84 17 138/85 97
03/13/25 11:40 03/13/25 11:40 03/13/25 11:40 03/13/25 11:40 03/13/25 11:40
Physical Exam
Constitutional: No Acute Distress and Comfortable
Head: Normocephalic
Eyes: Pupils Equal and No Conjunctival Hemorrhage
Cardiovascular: Regular Rate and S1/S2; Negative Murmur or Rub
Pulmonary: Clear and Symmetric; Negative Wheezes or Rales
Gastrointestinal: Soft, Non Tender, Non Distended and Normal Bowel Sounds
Extremities: Negative Edema
Musculoskeletal: Joint Swelling, Joint Effusion and Other (Son wraps on bilateral knees)
Skin: Warm and Dry; Negative Rash or Jaundice
Wound: Other (HD cath site dressing clean, dry, intact)
Neurological: Awake and Alert
Psychological: Confused and Agitated
Objective Data
Lab Data
Lab Results
03/13/25 06:43
03/13/25 06:43
ESR 98 mm/hour (0-20) H 03/10/25 07:41
Estimated Creat Clear 18 ml/min 03/13/25 06:43
Lactic Acid Cancelled 03/09/25 05:00
Total Bilirubin 0.5 mg/dl (0.2-1.3) 03/09/25 00:58
AST 19 U/L (17-59) 03/09/25 00:58
ALT < 10 U/L (0-50) 03/09/25 00:58
Alkaline Phosphatase 143 U/L (38-126) H 03/09/25 00:58
C-Reactive Protein 86.70 mg/L (0.0-10.00) H 03/10/25 07:41
Most recent labs reviewed.
Microbiology: Report Reviewed
Micro Results:
03/12/25 16:21 Anaerobic Culture - Preliminary
Knee - Left Culture pending. Anaerobic cultures are examined after 3
days incubation. Additional information to follow.
03/12/25 16:21 Wound Culture - Preliminary
Knee - Left No growth
Gram Stain - Preliminary
03/12/25 16:21 Tissue Culture - Preliminary
Knee - Left No Growth After 18-24 Hours
Gram Stain - Preliminary
03/11/25 09:27 Catheter Tip Culture - Final
Dialysis Line Enterococcus faecalis
03/09/25 20:42 Body Fluid Culture - Final
Knee - Right No Growth After 72 Hours
Gram Stain - Final
03/09/25 20:42 Body Fluid Culture - Final
Knee - Left No Growth After 72 Hours
Gram Stain - Final
03/09/25 20:42 Body Fluid Culture - Final
Synovial Fluid No Growth After 72 Hours
Gram Stain - Final
03/12/25 17:00 Wound Culture - Pending
Knee - Right Gram Stain - Pending
03/12/25 07:31 Blood Culture - Preliminary
Blood/Venous No Growth in 24 hours- Final report to follow
03/12/25 17:00 Tissue Culture - Pending
Abscess Gram Stain - Pending
03/12/25 17:00 Anaerobic Culture - Pending
Knee - Right
03/12/25 17:00 Anaerobic Culture - Pending
Abscess
03/11/25 15:09 Blood Culture - Preliminary
Blood/Venous No Growth in 24 hours- Final report to follow
03/11/25 14:35 Blood Culture - Preliminary
Blood/Venous No Growth in 24 hours- Final report to follow
03/10/25 14:18 Blood Culture - Preliminary
Blood/Venous No Growth in 48 hours- Final report to follow
03/09/25 00:58 Blood Culture - Final
Blood/Venous Enterococcus faecalis
Gram Stain - Final
03/09/25 01:34 Blood Culture - Preliminary
Blood/Venous Enterococcus faecalis
Gram Stain - Preliminary
03/09/25 15:38 MRSA Screen - Final
Nose No Methicillin Resistant Staphylococcus aureus isolated.
03/09/25 01:58 Urine Culture - Final
Urine NO GROWTH
--- NOTE | 2025-03-13 13:04 | W.PN.HOSP.TC ---
Addendum entered and electronically signed by Michael Julio DO 03/13/25 14:52:
CDI: Unclear diagnosis, uncertain if this is reversible process. Had recent KRISHNA requiring initiation of HD at [facility], records pending, [facility], records pending, however patient states he is optimistic he will not need dialysis lifelong
Original Note:
Today's Communication/Plan
-
Continue antibiotics
Follow repeat blood cultures and OR culture
Transfuse 1 unit PRBC
[employer]/PT/OT
Assessment / Plan
Assessment / Plan
Mr. Zuhair Posey is a 59-year-old male with IDDM 2, EtOH abuse, AIXA, hypothyroidism, H/O acute renal failure currently on HD, H/O septic arthritis of the bilateral knees with right patella removal currently on cefadroxil suppressive therapy that
presented to the hospital from his nursing facility with reported altered mental status. Also reportedly concerns for facial droop and speech deficits. AFVSS upon arrival, initial head CT unremarkable, chest x-ray with interstitial edema, brain
MRI unremarkable with no signs of acute CVA. Labs showed hemoglobin 8.0, creatinine 3.6, BUN 29, magnesium 1.5, albumin 2.6, TSH 44 with normal free T4. Iron studies with ferritin 568, TIBC 187, iron saturation 16%. Blood cultures taken on
arrival, was started on IV ceftriaxone and vancomycin in place of home cefadroxil due to knee effusions.
Patient recently was hospitalized at [facility]. Medical records currently pending.
#Septic Arthritis Bilateral Knees
#Enterococcus Bacteremia
-see x-ray of the knees and MRI both consistent with septic arthritis bilaterally, complicated fluid collection with gas bubbles of medial right knee
-s/p arthrocentesis with fluid studies showing WBC 92,000 with > 90% PMN; no crystals seen
-MRI left knee and lumbar spine ordered to assess for metastatic infection, results pending
-Had removal of dialysis line on 03/11; line tip culture coming back positive for Enterococcus
-Currently on IV ceftriaxone and ampicillin; status posttreatment with IV vancomycin
-POD #1 from bilateral knee I&D and washout
-Continue current antibiotic regimen, repeat blood culture per ID
-Appreciate ID and Orthopedics
-Follow-up OR cultures
#Acute blood loss anemia
-Hemoglobin baseline in the range of 8.5-9 due to anemia of chronic kidney disease
-Hemoglobin dropped to 7.1 following a OR on 03/12, no other signs of active bleeding
-Ordered 1 unit PRBC to be transfused 03/13
-Continue to trend CBC
#Metabolic Encephalopathy
-2/2 Above
-resolved
#Hypothyroidism with TSH 44
-Will await medical records from [facility],
-Repeat thyroid studies here near same as last
-Increase levothyroxine on morning of 03/12 to 150 mcg
-Will need to have repeat TSH in 4-6
#ESRD on HD
#Anemia of chronic kidney disease
-Unclear etiology, had KRISHNA with ARF, hopeful to get off HD eventually
-Permacath removed due to bacteremia secondary to septic arthritis
-Nephrology consulted IR for temporary catheter placement
-Renal consult appreciated
#IDDM 2
-Home regimen includes Lantus 6 units nightly and ISS with Accu-Cheks
-Remains on home regimen with well-controlled blood sugars
SQ heparin
Full code
Renal diet
Anticipated Discharge: > 48 hours
Subjective/Interval History
-
Date of Service: March 13, 2025
Seen and examined at the bedside. No acute events reported overnight. AFVSS this morning
Hemoglobin down trended to 7.1 following OR yesterday. 1 unit PRBC ordered. Magnesium 1.5 with phosphorus 6.6. Labs otherwise stable
He states he is in some pain to his bilateral knees though currently manageable. Denies other new complaints
Objective Data
-
Labs:
Laboratory Results
03/13/25
06:43
WBC 4.0 L
Hgb 7.1 L
Hct 22.9 L
Plt Count 175
Sodium 134 L
Potassium 4.8 D
Chloride 98
Carbon Dioxide 24
BUN 39 H
Creatinine 5.0 H*
Glucose 273 H
Calcium 7.9 L
Vital Signs:
Vital Signs
Temp Pulse Resp BP Pulse Ox
97.8 F 84 17 138/85 97
03/13/25 11:40 03/13/25 11:40 03/13/25 11:40 03/13/25 11:40 03/13/25 11:40
I&O
03/12/25 03/13/25 03/14/25
06:59 06:59 06:59
Intake Total 903 / 903 50 / 50 0 / 0
Output Total 570 / 570
Balance 903 / 903 -520 / -520 0 / 0
Review of Systems
-
History Source: Patient
All other systems: Reviewed and negative
Physical Exam
-
General: Well Developed, No Apparent Distress, Appears Chronically Ill and Other (Thin male)
HEENT: Normocephalic, Atraumatic, Moist Mucous Membranes and Anicteric
Respiratory: Clear to Auscultation and Non Labored Respirations; Negative Accessory Resp Muscle Use
Cardiac: Regular Rhythm and S1/S2; Negative Murmur, Rub or Gallop
GI: Soft, Nontender, Nondistended and Normal Bowel Sounds
Musculoskeletal: No Clubbing, No Cyanosis, No Edema and Other (Amputated great toes bilaterally, bandaging/wrapping over bilateral knees)
Skin: Warm, Dry and Normal Turgor; Negative Rash
Neuro: AO x 3 and Nonfocal/Grossly Intact; Negative Tremors
Psych: Calm
Data Reviewed
-
Labs: Labs Reviewed by me, Discussed with Nurse and Discussed with Patient
--- NOTE | 2025-03-13 13:21 | CM ---
Patient chart reviewed
Patient from [facility] receiving HD
Referral in [facility] with note stated will need auth upon return
PLAN: [facility] to continue on skilled services
[2025-03-13] MEDS: MAGNESIUM SULFATE 50 IV (14:02)
--- NOTE | 2025-03-13 14:31 | PN.CDI ---
CDI
- -
CDI:
Physician Documentation Request
Admit Date: 03/09/25 03:45
Dear Doctor,
Please review the following and provide your response in the progress notes.
Clinical Indicators:
Pt admitted with bilateral septic arthritis and metabolic encephalopathy.
03/10 ID: ' patient is understandably upset and discouraged, expressing that he might not want to do equipment [facility] [employer] [facility] HD, I have encouraged him to press on and explained that he does not yet have a diagnosis of ESRD and renal function may yet improve.'
03/13 nephrology: 'Acute kidney injury dialysis dependent Monday at [facility]'
03/13 Progress Note: 'ESRD on HD
#Anemia of chronic kidney disease
-Unclear etiology, had KRISHNA with ARF, hopeful to get off HD eventually'
Due to potentially conflicting documentation, please clarify which of the following accurately represents the patient's renal status:
Acute renal failure
ESRD
Other
Use of terms such as suspected, likely, concern for, or probable (associated with a specific diagnosis that is being evaluated, monitored, or treated as if it exists) are acceptable and can be coded in the inpatient setting, when documented at the
time of discharge.
Thank you,
Brigitte Solares RN, BSN
CDI Specialist
[place] Text
Please use your independent medical judgment in providing your response.
*Source: Kidney Disease: Improving Global Outcomes (KDIGO) 2012
[2025-03-13 16:44] LABS: Glucose - Point of Care 231 mg/dl (70-99)
[2025-03-13] MEDS: NOVOLOG FLEXPEN-LOW RESISTANCE 2 UNITS SC (16:44)
[2025-03-13] MEDS: LANTUS 0.06 UNITS SC (17:23)
--- NOTE | 2025-03-13 17:44 | W.PN.UPDATE ---
Update Note
Progress Note Update
Patient seen examined bedside. Dressings were changed without active drainage. Wounds appeared well. Redressed bilateral knees dry dressings consisting of ABD Son bandage. Okay for dry dressing changes as needed
Please reach out any questions or concerns
[2025-03-13] MEDS: MUCINEX 1200 MG PO (21:28)
[2025-03-13] MEDS: SEROQUEL 75 MG PO (21:29)
[2025-03-13] MEDS: LIPITOR 20 MG PO (21:29)
[2025-03-13 21:31] LABS: Glucose - Point of Care 250 mg/dl (70-99)
[2025-03-14] VITALS (12 sets, daily range): BP systolic 77–156; BP diastolic 79–98; BMI 21.2
[2025-03-14] MEDS: DILAUDID 0.25 MG IV ×3 (01:12→20:49)
[2025-03-14] MEDS: SYNTHROID 150 MCG PO (04:54)
[2025-03-14] MEDS: AMPICILLIN 108 MG IV (04:54)
[2025-03-14 07:09] LABS: Hemoglobin 7.1 g/dL (13.0-18.0); Mean Corp Hgb Conc. 30.9 g/dL (33.0-37.0); Mean Corpuscular Hgb 28.4 pg (27.0-31.0); Mean Platelet Volume 9.7 fL (7.4-10.4); Platelet Count 183 10^3/uL (130-400); Red Cell Dist. Width 16.5 % (11.5-14.5); White Blood Cell Count 6.6 10^3/uL (4.8-10.8)
[2025-03-14 07:19] LABS: Glucose - Point of Care 154 mg/dl (70-99)
[2025-03-14 07:21] LABS: Blood Urea Nitrogen 46 mg/dl (9-20); Calcium 7.9 mg/dl (8.4-10.2); Carbon Dioxide 26 mmol/L (22-30); Chloride 98 mmol/L (98-107); Estimated Creatinine Clearance 16 ml/min; Glucose 143 mg/dl (70-99); Potassium 4.8 mmol/L (3.5-5.1); Sodium 135 mmol/L (135-145); eGFR 10.97
[2025-03-14] MEDS: MUCINEX 1200 MG PO ×2 (08:11→20:51)
[2025-03-14] MEDS: NOVOLOG FLEXPEN-LOW RESISTANCE SC ×4 (08:11→17:09)
[2025-03-14] MEDS: VISBIOME 1 CAP PO (08:12)
[2025-03-14] MEDS: FOLVITE 1 MG PO (08:12)
[2025-03-14] MEDS: COLACE 100 MG PO ×2 (08:12→20:51)
[2025-03-14] MEDS: ROCEPHIN 1000 MG IV (08:12)
[2025-03-14] MEDS: STERILE WATER FOR INJECTION 10 ML IV (08:12)
[2025-03-14] MEDS: SENOKOT 8.6 MG PO ×2 (08:12→20:51)
[2025-03-14] MEDS: LIDOCAINE 4% PATCH TOPICAL (08:14)
[2025-03-14] MEDS: HEPARIN SC (08:17)
--- NOTE | 2025-03-14 09:23 | W.PN.UPDATE ---
Update Note
Progress Note Update
Right IJ nontunneled dialysis catheter placed. Difficult access due to IJ stenosis - this access should be used to convert to tunneled catheter once infection is resolved, and the access should be preserved for as long as possible.
[2025-03-14 10:38] LABS: % Basophils 0.8 % (0-2); % Eosinophils 3.5 % (0-6); % Immature Granulocytes 0.5 % (0-0.5); % Lymphocytes 23.4 % (20.5-51.1); % Monocytes 8.5 % (1.7-9.3); % Neutrophils 63.3 % (42.2-75.2); Absolute Basophils 0.1 10^3/uL (0-0.2); Absolute Eosinophils 0.2 10^3/uL (0-0.7); Absolute Lymphocytes 1.6 10^3/uL (1.2-3.4); Absolute Monocytes 0.6 10^3/uL (0.1-0.6); Absolute Neutrophils 4.2 10^3/uL (1.4-6.5); Nucleated Red Blood Cells % 0 % (-)
[2025-03-14 11:11] LABS: Creatine Phosphokinase 24 U/L (55-170)
--- NOTE | 2025-03-14 12:34 | W.PN.ID1 ---
Addendum entered and electronically signed by Latisha Ortiz MD 03/14/25 16:05:
I saw and evaluated the patient. I reviewed the resident�s separately documented note and agree with findings and plan as documented in the resident�s note with the following additions/corrections
Subjective
remains afebrile
bp stable
delirium remains a problem - was prominent overnight - tried to removed more dressings; this AM oriented resistant to discussions about line removal 'that happened in my sleep' encouraged him to be careful of the temp HD cath
he now has a temp HD cath and RIJ stenosis was noted
knees improved per orthopedics
Labs reviewed:
note that hgb is dropping post operatively as expected
Blood Culture Final 03/12/25-816
Enterococcus faecalis
Organism 1 Enterococcus faecalis
1. Enterococcus faecalis
M.I.C. RX
--------- ---
Ampicillin <=2 S
Gentamicin Synergy Screen >500 R
Vancomycin 2 S
Physical Exam
Constitutional: No Acute Distress and Chronically Ill
Cardiovascular: Regular Rate and S1/S2; Negative Murmur or Rub
Pulmonary: Clear and Symmetric; Negative Wheezes or Rales
Gastrointestinal: Soft, Non Tender, Non Distended and Normal Bowel Sounds
Musculoskeletal: Other post operative dressings in place, small amount of strikethrough otherwise clean, dry, intact
Skin: Warm and Dry; Negative Rash or Jaundice
Wound: Other (HD cath site dressing clean, dry, intact)
Assessment and Plan:
Enterococcal Bacteremia
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
Suspected Enterococcal Septic Joint of the Bilateral Knees (disseminated infection)
Concern for possible Psoas abscess - Right lumbar pain
Toxic Metabolic Encephalopathy
H/o EtOH use disorder, low ALT - possible cirrhosis though not previously diagnosed
on HD via RIJ
H/o multiple toe amputations bilaterally
- TME may relate to beta lactams, isolate is resistant to aminoglycosides, I will switch to daptomycin
- daptomycin dosing will do 6 mg/kg iv q48 hour to start on monday can switch to dosing schedule
- check CPK today and then on mondays moving forward
- hold statins while on daptomycin
- plan at least a 6 week course of IV antibiotics - duration could be longer pending MRI lumbar spine
- note that patient has self removed two devices - seems to be related to delirium
- / blood cultures E faecalis
- repeat blood cultures / no growth to date
- 5/6 cath tip culture - E faecalis
- 03/12 OR cultures x3 in progress - gram stains not yet available
- RF negative
- MRI lumbar spine when delirium resolved
- will follow up outpatient records from [facility] when available
- has temp HD line - note comments that he has IJ stenosis and access should be preserved as a long as possible
Possible Developing eosinophilia
- recheck differential weekly, will order for monday
Discussed dislysis schedule with Dr Lara
Original Note:
Date of Service
Date of Service: March 14, 2025
Patient seen and examined.
Was sleepy but arousable.
Reports no acute symptoms.
No acute events overnight.
Nursing reports intermittent confusion.
Today's Communication
Continue ampicillin 2 g IV Q12H and ceftriaxone 1 g Q12H
Follow cultures
MRI potentially after dialysis
Assessment / Plan
59-year-old male who presented with altered mental status and was found to have positive blood cultures for Enterococcus. S/p bilateral knee aspiration, imaging consistent with bilateral knee osteoarthritis.
Assessment and plan:
#Enterococcal Bacteremia
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
#Concern for possible Psoas abscess - Right lumbar pain
#H/o EtOH use disorder, low ALT - possible cirrhosis though not previously diagnosed
#H/o multiple toe amputations bilaterally
#Acute TME
- Blood cultures x 2 5/4 positive for Enterococcus faecalis.
- Catheter tip culture /6 also positive for Enterococcus faecalis.
- Repeat blood cultures 5/6 NGTD.
- MRSA screen negative.
- UA negative and not consistent with glomerulonephritis, and urine culture finalized negative - unlikely to be the source.
- On HD via RIJ (on line holiday), will convert to tunneled catheter once infection resolves.
- Appreciate IR.
- RF negative.
- Eosinophilia resolved; AIN, DRESS syndrome unlikely.
- Continue ampicillin 2 gm IV q12 hrs and ceftriaxone to 1 gm Q12.
- Follow blood and wound cultures.
#Suspected Enterococcal Septic Joint of the Bilateral Knees (disseminated infection).
- Anaerobic bilateral knee wound cultures 03/12 in progress.
- TTE 03/10 negative for any significant valvular disease.
- Given bilateral knee septic arthritis, highly suspect chronic bacteremia with potential endocarditis. Will get SONYA to evaluate.
- Agree with MRI of lumbar spine after HD since patient received contrast during recent procedure.
# Acute TME
- Suspected related to beta-lactam combination.
- Plan to switch to daptomycin.
- Total of 6 weeks of IV antibiotics planned pending MRI results.
- Will continue to follow.
Chief Complaint
-: Other (Bilateral knee septic arthritis, probable endocarditis, disseminated enterococcus.)
Subjective / Review of Systems
Review of Systems: No Fever, No Chills, No Headache, No Stiff Neck, No Cough, No Chest Pain, No Palpitations, No Abdominal Pain, Vomiting, No Diarrhea, No Dysuria, Joint Pain and No Skin Rash
Vital Signs / Physical Exam
Vital Signs
Vital Signs
Temp Pulse Resp BP Pulse Ox
97.9 F 81 16 147/87 97
03/14/25 11:00 03/14/25 11:03/14/25 11:00 03/14/25 11:03/14/25 11:00
Physical Exam
Constitutional: No Acute Distress and Comfortable
Head: Normocephalic
Eyes: Pupils Equal and No Conjunctival Hemorrhage
Cardiovascular: Regular Rate and S1/S2; Negative Murmur or Rub
Pulmonary: Clear and Symmetric; Negative Wheezes or Rales
Gastrointestinal: Soft, Non Tender, Non Distended and Normal Bowel Sounds
Extremities: Negative Edema
Musculoskeletal: Joint Swelling, Joint Effusion and Other (Son wraps on bilateral knees)
Skin: Warm and Dry; Negative Rash or Jaundice
Wound: Other (HD cath site dressing clean, dry, intact)
Neurological: Awake and Alert
Psychological: Confused and Agitated
Objective Data
Lab Data
Lab Results
03/14/25 05:59
03/14/25 05:59
ESR 98 mm/hour (0-20) H 03/10/25 07:41
Estimated Creat Clear 16 ml/min 03/14/25 05:59
Lactic Acid Cancelled 03/09/25 05:00
Total Bilirubin 0.5 mg/dl (0.2-1.3) 03/09/25 00:58
AST 19 U/L (17-59) 03/09/25 00:58
ALT < 10 U/L (0-50) 03/09/25 00:58
Alkaline Phosphatase 143 U/L (38-126) H 03/09/25 00:58
C-Reactive Protein 86.70 mg/L (0.0-10.00) H 03/10/25 07:41
Most recent labs reviewed.
Microbiology: Report Reviewed
Micro Results:
03/12/25 17:00 Tissue Culture - Preliminary
Abscess No Growth After 18-24 Hours
Gram Stain - Preliminary
03/12/25 16:21 Wound Culture - Preliminary
Knee - Left No growth
Gram Stain - Preliminary
03/12/25 16:21 Tissue Culture - Preliminary
Knee - Left No Growth After 48 Hours
Gram Stain - Preliminary
03/12/25 17:00 Anaerobic Culture - Preliminary
Abscess Culture pending. Anaerobic cultures are examined after 3
days incubation. Additional information to follow.
03/12/25 17:00 Wound Culture - Preliminary
Knee - Right No growth
Gram Stain - Preliminary
03/12/25 17:00 Anaerobic Culture - Preliminary
Knee - Right Culture pending. Anaerobic cultures are examined after 3
days incubation. Additional information to follow.
03/12/25 07:31 Blood Culture - Preliminary
Blood/Venous No Growth in 48 hours- Final report to follow
03/11/25 15:09 Blood Culture - Preliminary
Blood/Venous No Growth in 48 hours- Final report to follow
03/11/25 14:35 Blood Culture - Preliminary
Blood/Venous No Growth in 48 hours- Final report to follow
03/10/25 14:18 Blood Culture - Preliminary
Blood/Venous No Growth in 72 hours- Final report to follow
03/12/25 16:21 Anaerobic Culture - Preliminary
Knee - Left Culture pending. Anaerobic cultures are examined after 3
days incubation. Additional information to follow.
03/11/25 09:27 Catheter Tip Culture - Final
Dialysis Line Enterococcus faecalis
03/09/25 20:42 Body Fluid Culture - Final
Knee - Right No Growth After 72 Hours
Gram Stain - Final
03/09/25 20:42 Body Fluid Culture - Final
Knee - Left No Growth After 72 Hours
Gram Stain - Final
03/09/25 20:42 Body Fluid Culture - Final
Synovial Fluid No Growth After 72 Hours
Gram Stain - Final
03/09/25 00:58 Blood Culture - Final
Blood/Venous Enterococcus faecalis
Gram Stain - Final
03/09/25 01:34 Blood Culture - Preliminary
Blood/Venous Enterococcus faecalis
Gram Stain - Preliminary
03/09/25 15:38 MRSA Screen - Final
Nose No Methicillin Resistant Staphylococcus aureus isolated.
03/09/25 01:58 Urine Culture - Final
Urine NO GROWTH
Care Review
Plan reviewed with: Physician
--- NOTE | 2025-03-14 12:53 | W.PN.HOSP.TC ---
Today's Communication/Plan
-
Continue antibiotics
Follow OR cultures
Transfuse 1 unit PRBC
HD per temporary line today
Plan for permanent HD access @ right IJ at IR rec
PT/OT/OOB
VSE
Assessment / Plan
Assessment / Plan
Mr. Zuhair Posey is a 59-year-old male with IDDM 2, EtOH abuse, AIXA, hypothyroidism, H/O acute renal failure currently on HD, H/O septic arthritis of the bilateral knees with right patella removal currently on cefadroxil suppressive therapy that
presented to the hospital from his nursing facility with reported altered mental status. Also reportedly concerns for facial droop and speech deficits. AFVSS upon arrival, initial head CT unremarkable, chest x-ray with interstitial edema, brain
MRI unremarkable with no signs of acute CVA. Labs showed hemoglobin 8.0, creatinine 3.6, BUN 29, magnesium 1.5, albumin 2.6, TSH 44 with normal free T4. Iron studies with ferritin 568, TIBC 187, iron saturation 16%. Blood cultures taken on
arrival, was started on IV ceftriaxone and vancomycin in place of home cefadroxil due to knee effusions.
Patient recently was hospitalized at [facility]. Medical records currently pending.
#Septic Arthritis Bilateral Knees
#Enterococcus Bacteremia
-see x-ray of the knees and MRI both consistent with septic arthritis bilaterally, complicated fluid collection with gas bubbles of medial right knee
-s/p arthrocentesis with fluid studies showing WBC 92,000 with > 90% PMN; no crystals seen
-MRI left knee and lumbar spine ordered to assess for metastatic infection, results pending
-Had removal of dialysis line on 03/11; line tip culture coming back positive for Enterococcus
-Currently on IV ceftriaxone and ampicillin; status posttreatment with IV vancomycin
-POD #2 from bilateral knee I&D and washout, remains afebrile and without complication
-Continue current antibiotic regimen, repeat blood culture per ID
-Appreciate ID and Orthopedics, likely need 6-week+ of antibiotic
-Follow-up OR cultures
#Acute blood loss anemia
-Hemoglobin baseline in the range of 8.5-9 due to anemia of chronic kidney disease
-Hemoglobin dropped to 7.1 following a OR on 03/12, no other signs of active bleeding
-Ordered 1 unit PRBC to be transfused 03/13, hemoglobin the next day 7.1 again
-Ordered second unit of PRBC on 03/14, now s/p 2 unit total
-Continue to trend CBC
#Metabolic Encephalopathy
#Concern for aspiration
-2/2 Above, encephalopathy appears resolved
-May have some deconditioning with chronic illness, VSE pending to assess swallowing function
#Hypothyroidism
-with TSH 44 on admission labs
-Will await medical records from [facility],
-Repeat thyroid studies here near same as last
-Increase levothyroxine on morning of 03/12 to 150 mcg
-Will need to have repeat TSH in 4-6
#ESRD on HD
#Anemia of chronic kidney disease
-Unclear etiology, had KRISHNA with ARF, hopeful to get off HD eventually
-Permacath removed due to bacteremia secondary to septic arthritis
-Nephrology consulted IR for temporary catheter placement
-Renal consult appreciated
#IDDM 2
-Home regimen includes Lantus 6 units nightly and ISS with Accu-Cheks
-Remains on home regimen with well-controlled blood sugars
SQ heparin
Full code
Renal diet
Anticipated Discharge: > 48 hours
Subjective/Interval History
-
Date of Service: March 14, 2025
Seen and examined the bedside. No acute events reported overnight. AFVSS this morning.
Right IJ nontunneled dialysis catheter placed by IR this morning. Hemoglobin back to 7.1 after PRBC yesterday.
Patient denies any new complaints as of this morning. Pain is moderate but bearable at this time
Labs adequate for HD dependency, plan for HD later today
Objective Data
-
Labs:
Laboratory Results
03/14/25
05:59
WBC 6.6
Hgb 7.1 L
Hct 23.0 L
Plt Count 183
Sodium 135
Potassium 4.8
Chloride 98
Carbon Dioxide 26
BUN 46 H
Creatinine 5.6 H*
Glucose 143 H
Calcium 7.9 L
Vital Signs:
Vital Signs
Temp Pulse Resp BP Pulse Ox
97.9 F 81 16 147/87 97
03/14/25 11:00 03/14/25 11:00 03/14/25 11:00 03/14/25 11:00 03/14/25 11:00
I&O
03/13/25 03/14/25 03/15/25
06:59 06:59 06:59
Intake Total 50 / 50 1571 / 1571
Output Total 570 / 570 200 / 200 290 / 290
Balance -520 / -520 1371 / 1371 -290 / -290
Review of Systems
-
History Source: Patient
All other systems: Reviewed and negative
Physical Exam
-
General: Well Developed, No Apparent Distress and Appears Chronically Ill
HEENT: Normocephalic, Atraumatic, Moist Mucous Membranes and Anicteric
Respiratory: Clear to Auscultation and Non Labored Respirations; Negative Accessory Resp Muscle Use
Cardiac: Regular Rhythm and S1/S2; Negative Murmur, Rub or Gallop
GI: Soft, Nontender, Nondistended and Normal Bowel Sounds
Musculoskeletal: No Clubbing, No Cyanosis, No Edema and Other (Bilateral knees with surgical wrapping and bandaging)
Skin: Warm, Dry, Normal Turgor and IV Access / Catheter Site (Right IJ); Negative Rash
Neuro: AO x 3 and Nonfocal/Grossly Intact; Negative Tremors
Psych: Calm
Data Reviewed
-
Labs: Labs Reviewed by me, Discussed with Physician (Nephrology), Discussed with Nurse and Discussed with Patient
--- NOTE | 2025-03-14 13:25 | W.PN.NEPH.HD ---
Assessment
-
Tolerating dialysis via temporary dialysis catheter
Dialysis again Monday then Monday back on schedule
Daptomycin postdialysis
Progress Note - Hemodialysis
-
Date of Service: March 14, 2025
Duration: 30 minutes and 3 hours
Potassium Bath: 3
Calcium Bath: 2.5
Opti-Dialyzer: 160
Ultrafiltration: Other (kg)
Blood Flow: 400
Dialysate Flow: 600
Heparin: 0
EPO: [id number]
[2025-03-14] MEDS: RETACRIT 10000 UNITS IV (13:53)
--- NOTE | 2025-03-14 14:33 | CM ---
CM following re: discharge planning.
Reviewed pt's chart, met with pt .
Pt reports he has been staying at [facility] for 2 weeks, cannot even stand, staff using Ok lift to transfer to a chair. Pt reports he receives HD treatment at [facility]. Pt stated his optimal goal is to get better at [facility] and to
return back to his mother's house if possible.
CM spoke to [facility] director biologics and she confirmed that pt is for short term rehab, on Medicaid 15 day bed hold and pt will be accepted back when medically stable.
Per [facility] director biologics No auth is required as long as pt returns back to [facility] within 15 days bed hold. Bed hold will on 03/24/25.
D/C plan: [facility] to continue on skilled services and transition for a LTC.
CM will follow with discharge plan updates as hospitalization progresses
[2025-03-14 15:36] LABS: Glucose - Point of Care 148 mg/dl (70-99)
[2025-03-14 17:03] LABS: Glucose - Point of Care 128 mg/dl (70-99)
[2025-03-14] MEDS: CUBICIN 9.6 MG IV (17:49)
[2025-03-14] MEDS: LANTUS 0.06 UNITS SC (18:39)
[2025-03-14] MEDS: SEROQUEL 75 MG PO (20:51)
[2025-03-14] MEDS: HEPARIN 5000 UNITS SC (20:59)
[2025-03-14 21:52] LABS: Glucose - Point of Care 174 mg/dl (70-99)
[2025-03-15 03:00] VITALS: BP 156/91
[2025-03-15] MEDS: PERCOCET 5/325 1 TABLET PO ×4 (03:54→17:57)
[2025-03-15 06:00] VITALS: BMI 22.8
[2025-03-15] MEDS: SYNTHROID 150 MCG PO (06:08)
[2025-03-15 07:15] VITALS: BP 153/91
[2025-03-15 07:29] LABS: Glucose - Point of Care 170 mg/dl (70-99)
[2025-03-15] MEDS: COLACE 100 MG PO ×2 (07:39→21:02)
[2025-03-15] MEDS: VISBIOME 1 CAP PO (07:39)
[2025-03-15] MEDS: MUCINEX 1200 MG PO ×2 (07:39→21:03)
[2025-03-15] MEDS: FOLVITE 1 MG PO (07:39)
[2025-03-15] MEDS: SENOKOT 8.6 MG PO ×2 (07:39→21:03)
[2025-03-15] MEDS: HEPARIN 5000 UNITS SC ×2 (07:39→20:57)
[2025-03-15] MEDS: NOVOLOG FLEXPEN-LOW RESISTANCE 1 UNITS SC ×2 (07:40→12:04)
[2025-03-15] MEDS: LIDOCAINE 4% PATCH 1 PATCH TOPICAL (07:41)
[2025-03-15 08:18] LABS: Blood Urea Nitrogen 27 mg/dl (9-20); Calcium 7.7 mg/dl (8.4-10.2); Carbon Dioxide 26 mmol/L (22-30); Chloride 102 mmol/L (98-107); Estimated Creatinine Clearance 23 ml/min; Glucose 179 mg/dl (70-99); Potassium 4.1 mmol/L (3.5-5.1); Sodium 134 mmol/L (135-145); eGFR 17.47
[2025-03-15 09:39] LABS: % Basophils 1.3 % (0-2); % Eosinophils 6.6 % (0-6); % Immature Granulocytes 0.4 % (0-0.5); % Lymphocytes 17.8 % (20.5-51.1); % Monocytes 7.6 % (1.7-9.3); % Neutrophils 66.3 % (42.2-75.2); Absolute Basophils 0.1 10^3/uL (0-0.2); Absolute Eosinophils 0.5 10^3/uL (0-0.7); Absolute Lymphocytes 1.3 10^3/uL (1.2-3.4); Absolute Monocytes 0.5 10^3/uL (0.1-0.6); Absolute Neutrophils 4.7 10^3/uL (1.4-6.5); Hematocrit 26.8 % (39.0-52.0); Hemoglobin 8.3 g/dL (13.0-18.0); Mean Corpuscular Hgb 28.5 pg (27.0-31.0); Mean Corpuscular Volume 92.1 fL (80.0-94.0); Mean Platelet Volume 9.6 fL (7.4-10.4); Nucleated Red Blood Cells % 0 % (-); Platelet Count 170 10^3/uL (130-400); Red Blood Cell Count 2.91 10^6/uL (4.70-6.10); Red Cell Dist. Width 16.7 % (11.5-14.5); White Blood Cell Count 7.1 10^3/uL (4.8-10.8)
[2025-03-15 10:54] VITALS: BMI 22.8
[2025-03-15 11:15] VITALS: BP 145/88
[2025-03-15 12:04] LABS: Glucose - Point of Care 158 mg/dl (70-99)
--- NOTE | 2025-03-15 12:53 | W.PN.NEPH.HD ---
Assessment
-
Seen on HD. no complaints. VSS, access temp CVC
plan on conversion to tunnelled CVC monday
Progress Note - Hemodialysis
-
Date of Service: March 15, 2025
Duration: 30 minutes and 3 hours
Potassium Bath: 3
Calcium Bath: 2.5
Opti-Dialyzer: 160
Ultrafiltration: Other (2kg)
Blood Flow: 400
Dialysate Flow: 600
Heparin: no
EPO: no
--- NOTE | 2025-03-15 13:51 | W.PN.HOSP.TC ---
Today's Communication/Plan
-
Continue with IV daptomycin
Monitor mental status
Plan MRI L-spine when delirium improved
Follow cultures
Delirium precautions
Assessment / Plan
Assessment / Plan
Mr. Zuhair Posey is a 59-year-old male with IDDM 2, EtOH abuse, AIXA, hypothyroidism, H/O acute renal failure currently on HD, H/O septic arthritis of the bilateral knees with right patella removal currently on cefadroxil suppressive therapy that
presented to the hospital from his nursing facility with reported altered mental status. Also reportedly concerns for facial droop and speech deficits. AFVSS upon arrival, initial head CT unremarkable, chest x-ray with interstitial edema, brain
MRI unremarkable with no signs of acute CVA. Labs showed hemoglobin 8.0, creatinine 3.6, BUN 29, magnesium 1.5, albumin 2.6, TSH 44 with normal free T4. Iron studies with ferritin 568, TIBC 187, iron saturation 16%. Blood cultures taken on
arrival, was started on IV ceftriaxone and vancomycin in place of home cefadroxil due to knee effusions.
Patient recently was hospitalized at [facility]. Medical records currently pending.
#Septic Arthritis Bilateral Knees (POD 3 from bilateral knee washout)
#Enterococcus Bacteremia
-s/p arthrocentesis with fluid studies showing WBC 92,000 with > 90% PMN; no crystals seen; MRI knees (+)
-Blood cultures returned positive for Enterococcus Faecalis with resistance to fluoroquinolones and aminoglycoside
-Was previously treated with IV ceftriaxone and ampicillin; status posttreatment with IV vancomycin
-Transitioned beta-lactam's to daptomycin 6 mg/kg IV every 48 hours due to TME from beta-lactam
-Continue current antibiotic regimen with plan for 6+ weeks of antibiotic
-Appreciate ID and Orthopedics, planning MRI L-spine when delirium improves
-Follow-up OR cultures and blood cultures from 03/12
#Acute blood loss anemia
-Hemoglobin baseline in the range of 8.5-9 due to anemia of chronic kidney disease
-Hemoglobin dropped to 7.1 following a OR on 03/12, no other signs of active bleeding
-s/p 2 unit total with hemoglobin back near baseline
-Continue to trend CBC with supportive transfusion PRN
#Metabolic Encephalopathy
#Concern for aspiration
#Delirium
-2/2 Above, encephalopathy appears resolved
-May have some deconditioning with chronic illness, VSE pending to assess swallowing function
-Delirium precautions, frequent redirection, optimize natural lighting
-avoid benzodiazepines and sedatives
#Hypothyroidism
-with TSH 44 on admission labs
-Will await medical records from [facility],
-Repeat thyroid studies here near same as last
-Increase levothyroxine on morning of 03/12 to 150 mcg
-Will need to have repeat TSH in -6
#ESRD on HD
#Anemia of chronic kidney disease
-Unclear etiology, had KRISHNA with ARF, hopeful to get off HD eventually
-Permacath removed due to bacteremia secondary to septic arthritis
-Nephrology consulted IR for temporary catheter placement
-Renal consult appreciated
#IDDM 2
-Home regimen includes Lantus 6 units nightly and ISS with Accu-Cheks
-Remains on home regimen with well-controlled blood sugars
SQ heparin
Full code
Renal diet
Anticipated Discharge: > 48 hours
Subjective/Interval History
-
Date of Service: March 15, 2025
Seen and examined at the bedside. No acute events reported overnight. AFVSS this morning
Hemoglobin up to 8.3 following second unit of PRBC. Remains with some delirium this morning, states he did not sleep well
Denies any other new complaints this morning
Objective Data
-
Labs:
Laboratory Results
03/15/25
06:51
WBC 7.1
Hgb 8.3 L
Hct 26.8 L
Plt Count 170
Sodium 134 L
Potassium 4.1
Chloride 102
Carbon Dioxide 26
BUN 27 H
Creatinine 3.8 H
Glucose 179 H
Calcium 7.7 L
Vital Signs:
Vital Signs
Temp Pulse Resp BP Pulse Ox
98.3 F 80 16 145/88 98
03/15/25 11:15 03/15/25 11:15 03/15/25 11:15 03/15/25 11:15 03/15/25 12:40
I&O
03/14/25 03/15/25 03/16/25
06:59 06:59 06:59
Intake Total 1571 / 1571 1415 / 1415
Output Total 200 / 200 540 / 540
Balance 1371 / 1371 875 / 875
Review of Systems
-
History Source: Patient
All other systems: Reviewed and negative
Physical Exam
-
General: Well Developed, No Apparent Distress, Comfortable and Appears Chronically Ill
HEENT: Normocephalic, Atraumatic, Moist Mucous Membranes and Anicteric
Respiratory: Clear to Auscultation and Non Labored Respirations; Negative Accessory Resp Muscle Use
Cardiac: Regular Rhythm and S1/S2; Negative Murmur, Rub or Gallop
GI: Soft, Nontender, Nondistended and Normal Bowel Sounds
Musculoskeletal: No Clubbing, No Cyanosis, No Edema and Other (Bilateral knees with surgical wrapping)
Skin: Warm, Dry and Normal Turgor; Negative Rash
Neuro: Awake, Alert, Oriented and Nonfocal/Grossly Intact; Negative Tremors
Psych: Calm
Data Reviewed
-
Labs: Labs Reviewed by me and Discussed with Patient
--- NOTE | 2025-03-15 15:14 | PTCARENOTE ---
Patient AAOx3 this AM, confused/forgetful and alternating periods of drowsiness/restlessness; patient pulling at gown and B/L knee dressings at times. Bed bath provided this AM, B/L knee dressings changed by this RN, protective sacrum foam placed,
shelly on both knee incisions intact. R IJ dressing intact, patient receiving HD session this afternoon. Patient assist x1-2 to turn and reposition, on air bed, ringing appropriately.
[2025-03-15 15:15] VITALS: BP 137/86
[2025-03-15 17:17] LABS: Glucose - Point of Care 129 mg/dl (70-99)
[2025-03-15] MEDS: NOVOLOG FLEXPEN-LOW RESISTANCE SC (17:21)
[2025-03-15] MEDS: LANTUS 0.06 UNITS SC (17:26)
[2025-03-15 19:34] VITALS: BP 147/90
[2025-03-15] MEDS: SEROQUEL 75 MG PO (21:03)
[2025-03-15] MEDS: FLUSH (NSS) 1 FLUSH IV (21:08)
[2025-03-15 21:35] LABS: Glucose - Point of Care 137 mg/dl (70-99)
[2025-03-15 23:10] VITALS: BP 138/80
[2025-03-16 03:19] VITALS: BP 150/99
[2025-03-16] MEDS: SYNTHROID 150 MCG PO (05:35)
[2025-03-16] MEDS: PERCOCET 5/325 1 TABLET PO ×2 (05:39→17:53)
[2025-03-16 05:50] VITALS: BMI 21.2
[2025-03-16 06:41] LABS: Blood Urea Nitrogen 23 mg/dl (9-20); Calcium 8.1 mg/dl (8.4-10.2); Carbon Dioxide 27 mmol/L (22-30); Chloride 102 mmol/L (98-107); Estimated Creatinine Clearance 33 ml/min; Glucose 114 mg/dl (70-99); Potassium 4.2 mmol/L (3.5-5.1); Sodium 137 mmol/L (135-145); eGFR 26.33
[2025-03-16 07:10] VITALS: BP 142/90
[2025-03-16 07:15] LABS: Glucose - Point of Care 114 mg/dl (70-99)
[2025-03-16] MEDS: NOVOLOG FLEXPEN-LOW RESISTANCE SC ×2 (07:53→12:21)
[2025-03-16] MEDS: LIDOCAINE 4% PATCH 1 PATCH TOPICAL (08:37)
[2025-03-16] MEDS: SENOKOT 8.6 MG PO ×2 (08:38→19:50)
[2025-03-16] MEDS: VISBIOME 1 CAP PO (08:38)
[2025-03-16] MEDS: COLACE 100 MG PO ×2 (08:38→19:50)
[2025-03-16] MEDS: HEPARIN 5000 UNITS SC ×2 (08:38→19:51)
[2025-03-16] MEDS: FOLVITE 1 MG PO (08:38)
[2025-03-16] MEDS: MUCINEX 1200 MG PO ×2 (08:38→19:51)
[2025-03-16 09:47] LABS: Hemoglobin 8.7 g/dL (13.0-18.0); Mean Corp Hgb Conc. 31.1 g/dL (33.0-37.0); Mean Corpuscular Hgb 28.8 pg (27.0-31.0); Mean Corpuscular Volume 92.7 fL (80.0-94.0); Mean Platelet Volume 9.2 fL (7.4-10.4); Platelet Count 155 10^3/uL (130-400); Red Blood Cell Count 3.02 10^6/uL (4.70-6.10); Red Cell Dist. Width 16.7 % (11.5-14.5); White Blood Cell Count 8.1 10^3/uL (4.8-10.8)
--- NOTE | 2025-03-16 11:00 | W.PN.NEPH.PH ---
Today's Communication / Plan
-
HD tomorrow
Assessment/Plan
-
59y M with PMH significant for DM-II, alcohol use disorder and acute renal failure requiring dialysis who presents to ED from [facility] for evaluation of mental status change.
Impression.
Acute kidney injury dialysis dependent Monday at [facility]
Altered mental status negative CAT scan and MRI for acute process
Anemia of chronic disease
Type 2 diabetes
PermCath
Plan.
HD tomorrow
Plan for dialysis holiday at least 2 days.
plan for temp to tunneled HD CVC tomorrow
-
-
Date of Service: March 16, 2025
CC / HPI / ROS
-
Chief Complaint:
ESRD
History of Present Illness:
tolerated HD yesterday
BP stable
Antibiotics for Enterococcus sepsis
Review of Systems:
No chest pain or shortness of breath
Labs
-
Labs:
WBC 8.1 10^3/uL (4.8-10.8) 03/16/25 05:19
RBC 3.02 10^6/uL (4.70-6.10) L 03/16/25 05:19
Hgb 8.7 g/dL (13.0-18.0) L 03/16/25 05:19
Hct 28.0 % (39.0-52.0) L 03/16/25 05:19
Plt Count 155 10^3/uL (130-400) 03/16/25 05:19
Sodium 137 mmol/L (135-145) 03/16/25 05:19
Potassium 4.2 mmol/L (3.5-5.1) 03/16/25 05:19
Chloride 102 mmol/L (98-107) 03/16/25 05:19
Carbon Dioxide 27 mmol/L (22-30) 03/16/25 05:19
BUN 23 mg/dl (9-20) H 03/16/25 05:19
Creatinine 2.7 mg/dL (0.7-1.3) H 03/16/25 05:19
eGFR 26.33 03/16/25 05:19
Glucose 114 mg/dl (70-99) H 03/16/25 05:19
Calcium 8.1 mg/dl (8.4-10.2) L 03/16/25 05:19
Phosphorus 6.6 mg/dl (2.5-4.5) H 03/13/25 06:43
Albumin 2.6 g/dl (3.5-5.0) L 03/09/25 00:58
Physical Exam
-
Vital Signs:
Vital Signs
Temp Pulse Resp BP Pulse Ox
98.1 F 86 16 142/90 95
03/16/25 07:10 03/16/25 07:10 03/16/25 07:10 03/16/25 07:10 03/16/25 10:43
Cardiovascular:: Regular rate and rhythm
Respiratory:: Bilateral: CTA
Lung Excursion:: Normal
Abdomen:: Nontender and Soft
Bowel Sounds:: Normal
Extremity Edema:: None: Bilateral:
[2025-03-16 11:05] VITALS: BP 158/96
[2025-03-16 12:12] LABS: Glucose - Point of Care 142 mg/dl (70-99)
--- NOTE | 2025-03-16 12:52 | W.PN.HOSP.TC ---
Today's Communication/Plan
-
MRI L-spine with and without contrast
Continue IV daptomycin
Follow cultures from 03/12
HD tomorrow
Assessment / Plan
Assessment / Plan
Mr. Zuhair Posey is a 59-year-old male with IDDM 2, EtOH abuse, AIXA, hypothyroidism, H/O acute renal failure currently on HD, H/O septic arthritis of the bilateral knees with right patella removal currently on cefadroxil suppressive therapy that
presented to the hospital from his nursing facility with reported altered mental status. Also reportedly concerns for facial droop and speech deficits. AFVSS upon arrival, initial head CT unremarkable, chest x-ray with interstitial edema, brain
MRI unremarkable with no signs of acute CVA. Labs showed hemoglobin 8.0, creatinine 3.6, BUN 29, magnesium 1.5, albumin 2.6, TSH 44 with normal free T4. Iron studies with ferritin 568, TIBC 187, iron saturation 16%. Blood cultures taken on
arrival, was started on IV ceftriaxone and vancomycin in place of home cefadroxil due to knee effusions.
Patient recently was hospitalized at [facility]. Medical records currently pending.
#Septic Arthritis Bilateral Knees (POD 3 from bilateral knee washout)
#Enterococcus Bacteremia
#Concern for lumbar osteodiscitis
-s/p arthrocentesis with fluid studies showing WBC 92,000 with > 90% PMN; no crystals seen; MRI knees (+)
-Blood cultures returned positive for Enterococcus Faecalis with resistance to fluoroquinolones and aminoglycoside
-Was previously treated with IV ceftriaxone and ampicillin; status posttreatment with IV vancomycin
-Transitioned beta-lactam's to daptomycin 6 mg/kg IV every 48 hours due to TME from beta-lactam
-Continue IV daptomycin every 48 hours with plan for 6+ weeks of antibiotics total
-Appreciate ID and Orthopedics, ordered MRI L-spine with and without contrast
-Follow-up OR cultures and blood cultures from 03/12
#Acute blood loss anemia
-Hemoglobin baseline in the range of 8.5-9 due to anemia of chronic kidney disease
-Hemoglobin dropped to 7.1 following a OR on 03/12, no other signs of active bleeding
-s/p 2 unit total with hemoglobin back near baseline, hemoglobin 8.7 morning 03/16
-Continue to trend CBC with supportive transfusion PRN
#Metabolic Encephalopathy
#Concern for aspiration
#Delirium
-2/2 Above, encephalopathy appears resolved
-May have some deconditioning with chronic illness, VSE pending to assess swallowing function
-Delirium precautions, frequent redirection, optimize natural lighting
-avoid benzodiazepines and sedatives
#Hypothyroidism
-with TSH 44 on admission labs
-Will await medical records from [facility],
-Repeat thyroid studies here near same as last
-Increase levothyroxine on morning of 03/12 to 150 mcg
-Will need to have repeat TSH in 4-6
#ESRD on HD
#Anemia of chronic kidney disease
-Unclear etiology, had KRISHNA with ARF, hopeful to get off HD eventually
-Permacath removed due to bacteremia secondary to septic arthritis
-Nephrology consulted IR for temporary catheter placement
-Renal consult appreciated
#IDDM 2
-Home regimen includes Lantus 6 units nightly and ISS with Accu-Cheks
-Remains on home regimen with well-controlled blood sugars
SQ heparin
Full code
Renal diet
Anticipated Discharge: > 48 hours
Subjective/Interval History
-
Date of Service: March 16, 2025
Seen and examined at the bedside. No acute events reported overnight. AFVSS this morning
Hemoglobin up to 8.7. Chemistries stable. Continues to have lumbar back pain that is not worse than previous
Mental status improved, appropriate conversation this morning. Denies any new complaints, bilateral knee pain improving daily
Objective Data
-
Labs:
Laboratory Results
03/16/25
05:19
WBC 8.1
Hgb 8.7 L
Hct 28.0 L
Plt Count 155
Sodium 137
Potassium 4.2
Chloride 102
Carbon Dioxide 27
BUN 23 H
Creatinine 2.7 H
Glucose 114 H
Calcium 8.1 L
Vital Signs:
Vital Signs
Temp Pulse Resp BP Pulse Ox
98.7 F 93 16 158/96 96
03/16/25 11:05 03/16/25 11:05 03/16/25 11:05 03/16/25 11:05 03/16/25 11:05
I&O
03/15/25 03/16/25 03/17/25
06:59 06:59 06:59
Intake Total 1415 / 1415 1560 / 1560
Output Total 540 / 540 800 / 800
Balance 875 / 875 760 / 760
Review of Systems
-
History Source: Patient
All other systems: Reviewed and negative
Physical Exam
-
General: Well Developed, No Apparent Distress, Appears Chronically Ill and Other (Thin male)
HEENT: Normocephalic, Atraumatic, Moist Mucous Membranes and Anicteric
Respiratory: Clear to Auscultation and Non Labored Respirations; Negative Accessory Resp Muscle Use
Cardiac: Regular Rhythm and S1/S2; Negative Murmur, Rub or Gallop
GI: Soft, Nontender, Nondistended and Normal Bowel Sounds
Musculoskeletal: No Clubbing, No Cyanosis, No Edema and Other (Bilateral knees with surgical wrapping)
Skin: Warm, Dry, Normal Turgor and IV Access / Catheter Site (Right IJ); Negative Rash
Neuro: AO x 3 and Nonfocal/Grossly Intact; Negative Tremors
Psych: Calm
Data Reviewed
-
Labs: Labs Reviewed by me and Discussed with Patient
[2025-03-16 15:00] VITALS: BP 149/94
[2025-03-16 16:17] LABS: Glucose - Point of Care 243 mg/dl (70-99)
[2025-03-16] MEDS: NOVOLOG FLEXPEN-LOW RESISTANCE 2 UNITS SC (17:34)
[2025-03-16] MEDS: LANTUS 0.06 UNITS SC (17:35)
[2025-03-16] MEDS: CUBICIN 9.6 MG IV (17:45)
[2025-03-16] MEDS: DILAUDID 0.25 MG IV (19:52)
[2025-03-16] MEDS: SEROQUEL 75 MG PO (21:11)
[2025-03-16 23:37] VITALS: BP 144/87
[2025-03-17] VITALS (8 sets, daily range): BP systolic 81–155; BP diastolic 59–99; BMI 21.2
[2025-03-17 00:23] LABS: Glucose - Point of Care 190 mg/dl (70-99)
[2025-03-17] MEDS: PERCOCET 5/325 1 TABLET PO ×3 (00:31→20:39)
[2025-03-17] MEDS: SYNTHROID 150 MCG PO (05:39)
[2025-03-17 08:24] LABS: % Basophils 0.8 % (0-2); % Eosinophils 5.8 % (0-6); % Immature Granulocytes 0.5 % (0-0.5); % Lymphocytes 15.8 % (20.5-51.1); % Monocytes 8.4 % (1.7-9.3); % Neutrophils 68.7 % (42.2-75.2); Absolute Basophils 0.1 10^3/uL (0-0.2); Absolute Eosinophils 0.4 10^3/uL (0-0.7); Absolute Lymphocytes 1.2 10^3/uL (1.2-3.4); Absolute Monocytes 0.6 10^3/uL (0.1-0.6); Absolute Neutrophils 5.2 10^3/uL (1.4-6.5); Hematocrit 25.3 % (39.0-52.0); Hemoglobin 7.8 g/dL (13.0-18.0); Mean Corp Hgb Conc. 30.8 g/dL (33.0-37.0); Mean Corpuscular Hgb 28.8 pg (27.0-31.0); Mean Corpuscular Volume 93.4 fL (80.0-94.0); Nucleated Red Blood Cells % 0 % (-); Platelet Count 169 10^3/uL (130-400); Red Blood Cell Count 2.71 10^6/uL (4.70-6.10); Red Cell Dist. Width 16.5 % (11.5-14.5); White Blood Cell Count 7.6 10^3/uL (4.8-10.8)
[2025-03-17 08:25] LABS: Glucose - Point of Care 114 mg/dl (70-99)
[2025-03-17] MEDS: RETACRIT 10000 UNITS IV (08:51)
--- NOTE | 2025-03-17 09:01 | W.PN.HOSP.TC ---
Documented by User: Zoraida Spence MD, Resident 03/17/25 12:48
Today's Communication/Plan
-
Video swallowing study today
Hemodialysis today
Replete electrolytes as needed
Continue to monitor CBC, if hemoglobin drops to 7, transfuse blood
Assessment / Plan
Assessment / Plan
Impression
Mr. Zuhair Posey is a 59-year-old male with IDDM 2, EtOH abuse, AIXA, hypothyroidism, H/O acute renal failure currently on HD, H/O septic arthritis of the bilateral knees with right patella removal currently on cefadroxil suppressive therapy that
presented to the hospital from his nursing facility with reported altered mental status. Also reportedly concerns for facial droop and speech deficits. AFVSS upon arrival, initial head CT unremarkable, chest x-ray with interstitial edema, brain
MRI unremarkable with no signs of acute CVA. Labs showed hemoglobin 8.0, creatinine 3.6, BUN 29, magnesium 1.5, albumin 2.6, TSH 44 with normal free T4. Iron studies with ferritin 568, TIBC 187, iron saturation 16%. Blood cultures taken on
arrival, was started on IV ceftriaxone and vancomycin in place of home cefadroxil due to knee effusions.
Patient had bilateral knee incision and drainage, culture results awaited.
Patient is on hemodialysis, catheter tip culture done on 03/11 revealed Enterococcus faecalis. ID is on board and patient is being managed on the lines of Enterococcus bacteremia secondary to catheter line related to Enterococcus/bilateral septic
arthritis. Second set of blood cultures awaited. TTE revealed no significant valve disease. Initially managed with beta-lactam antibiotics which was switched to daptomycin as patient was developing toxic metabolic and encephalopathy.
Assessment/plan
Septic Arthritis Bilateral Knees (POD 4 from bilateral knee washout)
#Enterococcus Bacteremia
#Concern for lumbar osteodiscitis
s/p arthrocentesis with fluid studies showing WBC 92,000 with > 90% PMN; no crystals seen; MRI knees (+)
Blood cultures returned positive for Enterococcus Faecalis with resistance to fluoroquinolones and aminoglycoside
Was previously treated with IV ceftriaxone and ampicillin; status posttreatment with IV vancomycin
Transitioned beta-lactam's to daptomycin 6 mg/kg IV every 48 hours due to TME from beta-lactam
Continue IV daptomycin every 48 hours with plan for 6+ weeks of antibiotics total
Appreciate ID and Orthopedics
MRI L-spine with and without contrast-IMPRESSION:
Markedly limited exam due to patient condition/discomfort with significant motion artifact and inability to complete the exam. No contrast could be given.
Findings are however consistent with discitis-osteomyelitis at L4-5. No epidural fluid collection seen.
Since no abcess-ID okay to continue antibiotics for 6 weeks
No growth on cultures (blood culture, wound culture) done on 03/12/2025
Acute blood loss anemia
-Hemoglobin baseline in the range of 8.5-9 due to anemia of chronic kidney disease
-Hemoglobin dropped to 7.1 following a OR on 03/12, no other signs of active bleeding
-s/p 2 unit total with hemoglobin back near baseline, hemoglobin 8.7 morning 03/16
Hemoglobin dropped slightly from 8.7-7.8, could be due to dilution, patient having hemodialysis session today
Continue to monitor CBC and transfuse as needed
Metabolic Encephalopathy
#Concern for aspiration-patient to have video swallowing study done today (03/17)
#Delirium
-2/2 Above, encephalopathy appears resolved
-Delirium precautions, frequent redirection, optimize natural lighting
-avoid benzodiazepines and sedative
Patient reports difficulty in sleeping
Hypothyroidism
-with TSH 44 on admission labs
-Repeat thyroid studies here near same as last
-Increase levothyroxine on morning of 03/12 to 150 mcg
-Will need to have repeat TSH in 4-6
#ESRD on HD
Hemodialysis session due today
#Anemia of chronic kidney disease
-Unclear etiology, had KRISHNA with ARF, hopeful to get off HD eventually
-Permacath removed due to bacteremia secondary to septic arthritis
-Nephrology consulted IR for temporary catheter placement
- Nephro consult appreciated
#IDDM 2
-Home regimen includes Lantus 6 units nightly and ISS with Accu-Cheks
-Remains on home regimen with well-controlled blood sugars
DVT prophylaxis SQ heparin
Full code
Renal diet
Anticipated Discharge: 24 - 48 hours
Subjective/Interval History
-
Date of Service: March 17, 2025
Patient having hemodialysis, feels fine, says everything hurts, did not sleep much overnight
Says he never sleeps
Oriented to name place and person
Objective Data
-
Labs:
Laboratory Results
03/17/25 03/17/25 03/17/25
07:32 08:34 08:53
WBC 7.6
Hgb 7.8 L
Hct 25.3 L
Plt Count 169
PT Cancelled Cancelled Pending
INR Cancelled Cancelled Pending
APTT Cancelled Cancelled Pending
Sodium Pending
Potassium Pending
Chloride Pending
Carbon Dioxide Pending
BUN Pending
Creatinine Pending
Glucose Pending
Calcium Pending
Vital Signs:
Vital Signs
Temp Pulse Resp BP Pulse Ox
98.4 F 83 18 155/99 97
03/17/25 07:50 03/17/25 07:50 03/17/25 07:50 03/17/25 07:50 03/17/25 07:50
I&O
03/16/25 03/17/25 03/18/25
06:59 06:59 06:59
Intake Total 1560 / 1560 960 / 960
Output Total 800 / 800
Balance 760 / 760 960 / 960
Review of Systems
-
Constitutional: Reports Fatigue and Sleep Disturbance
Genitourinary: Reports Incontinence
Musculoskeletal: Reports Joint Pain, Joint Swelling, Muscle Pain and Arthralgias
Psych: Reports Depressed
Physical Exam
-
General: No Apparent Distress, Appears Chronically Ill and Cachectic
HEENT: Normocephalic, Atraumatic and Moist Mucous Membranes
Respiratory: Clear to Auscultation and Other (No accessory muscle use, no crackles, wheezes or rhonchi)
Cardiac: Regular Rhythm, S1/S2 and Tachycardic
GI: Soft, Nontender and Normal Bowel Sounds
Musculoskeletal: No Clubbing, No Cyanosis and Other (Bilateral knees swelling/warmth, tender to touch, stitches intact with no drainage, on feet examination multiple amputation of toes, peripheral pulses palpable, feet legs and knees tender to touch)
Skin: Warm and Dry
Neuro: Awake, Oriented and No Motor Deficits
Psych: Other (A bit overwhelmed about his living situation, calm and cooperative with exam)

Documented by User: Michael Julio DO 03/17/25 13:01
Assessment / Plan
Assessment / Plan
Impression
Mr. Zuhair Posey is a 59-year-old male with IDDM 2, EtOH abuse, AIXA, hypothyroidism, H/O acute renal failure currently on HD, H/O septic arthritis of the bilateral knees with right patella removal currently on cefadroxil suppressive therapy that
presented to the hospital from his nursing facility with reported altered mental status. Also reportedly concerns for facial droop and speech deficits. AFVSS upon arrival, initial head CT unremarkable, chest x-ray with interstitial edema, brain
MRI unremarkable with no signs of acute CVA. Labs showed hemoglobin 8.0, creatinine 3.6, BUN 29, magnesium 1.5, albumin 2.6, TSH 44 with normal free T4. Iron studies with ferritin 568, TIBC 187, iron saturation 16%. Blood cultures taken on
arrival, was started on IV ceftriaxone and vancomycin in place of home cefadroxil due to knee effusions.
Patient had bilateral knee incision and drainage, culture results awaited.
Patient is on hemodialysis, catheter tip culture done on 03/11 revealed Enterococcus faecalis. ID is on board and patient is being managed on the lines of Enterococcus bacteremia secondary to catheter line related to Enterococcus/bilateral septic
arthritis. Second set of blood cultures awaited. TTE revealed no significant valve disease. Initially managed with beta-lactam antibiotics which was switched to daptomycin as patient was developing toxic metabolic and encephalopathy.
Assessment/plan
Septic Arthritis Bilateral Knees (POD 5 from bilateral knee washout)
#Enterococcus Bacteremia
#Concern for lumbar osteodiscitis
s/p arthrocentesis with fluid studies showing WBC 92,000 with > 90% PMN; no crystals seen; MRI knees (+)
Blood cultures returned positive for Enterococcus Faecalis with resistance to fluoroquinolones and aminoglycoside
Was previously treated with IV ceftriaxone and ampicillin; status posttreatment with IV vancomycin
Transitioned beta-lactam's to daptomycin 6 mg/kg IV every 48 hours due to TME from beta-lactam
Continue IV daptomycin every 48 hours with plan for 6+ weeks of antibiotics total
Appreciate ID and Orthopedics
MRI L-spine with and without contrast-IMPRESSION:
Markedly limited exam due to patient condition/discomfort with significant motion artifact and inability to complete the exam. No contrast could be given.
Findings are however consistent with discitis-osteomyelitis at L4-5. No epidural fluid collection seen.
Since no abcess-ID okay to continue antibiotics for 6 weeks
No growth on cultures (blood culture, wound culture) done on 03/12/2025
Acute blood loss anemia
-Hemoglobin baseline in the range of 8.5-9 due to anemia of chronic kidney disease
-Hemoglobin dropped to 7.1 following a OR on 03/12, no other signs of active bleeding
-s/p 2 unit total with hemoglobin back near baseline, hemoglobin 8.7 morning 03/16
Hemoglobin dropped slightly from 8.7-7.8, could be due to dilution, patient having hemodialysis session today
Continue to monitor CBC and transfuse as needed
Metabolic Encephalopathy
#Concern for aspiration-patient to have video swallowing study done today (03/17)
#Delirium
-2/2 Above, encephalopathy appears resolved
-Delirium precautions, frequent redirection, optimize natural lighting
-avoid benzodiazepines and sedative
Patient reports difficulty in sleeping
Hypothyroidism
-with TSH 44 on admission labs
-Repeat thyroid studies here near same as last
-Increase levothyroxine on morning of 03/12 to 150 mcg
-Will need to have repeat TSH in -6
#ESRD on HD
Hemodialysis session due today
#Anemia of chronic kidney disease
-Unclear etiology, had KRISHNA with ARF, hopeful to get off HD eventually
-Permacath removed due to bacteremia secondary to septic arthritis
-Nephrology consulted IR for temporary catheter placement
- Nephro consult appreciated
#IDDM 2
-Home regimen includes Lantus 6 units nightly and ISS with Accu-Cheks
-Remains on home regimen with well-controlled blood sugars
DVT prophylaxis SQ heparin
Full code
Renal diet
[2025-03-17 09:12] LABS: INR 1.12; PT 14.7 Sec (11.4-14.6)
[2025-03-17 09:13] LABS: APTT 38.3 Sec (23.4-35.0)
[2025-03-17 09:19] LABS: Blood Urea Nitrogen 35 mg/dl (9-20); Calcium 8.3 mg/dl (8.4-10.2); Carbon Dioxide 25 mmol/L (22-30); Chloride 101 mmol/L (98-107); Estimated Creatinine Clearance 25 ml/min; Glucose 111 mg/dl (70-99); Iron 36 ug/dl (49-181); Phosphorus 4.6 mg/dl (2.5-4.5); Potassium 4.5 mmol/L (3.5-5.1); Sodium 136 mmol/L (135-145); eGFR 18.64
[2025-03-17 09:57] LABS: Percent Saturation 18 % (20-50); Total Iron Binding Capacity 196 ug/dl (261-462)
--- NOTE | 2025-03-17 10:11 | W.PN.NEPH.HD ---
Assessment
-
Patient seen on dialysis
Systolic blood pressure at 149 at current UF
Creatinine continues to rise after dialysis, i.e. no resolution of acute kidney injury
For tunneled dialysis catheter placement today
Progress Note - Hemodialysis
-
Date of Service: March 17, 2025
Duration: 30 minutes and 3 hours
Potassium Bath: 3
Calcium Bath: 2.5
Opti-Dialyzer: 160
Ultrafiltration: Other (2 to 3 kg as tolerated)
Blood Flow: 400
Dialysate Flow: 600
Heparin: None
EPO: 10,000
--- NOTE | 2025-03-17 10:15 | W.PN.ID1 ---
Addendum entered and electronically signed by Latisha Ortiz MD 03/17/25 15:59:
also discussed with Dr Spence - duration
Addendum entered and electronically signed by Latisha Ortiz MD 03/17/25 15:58:
I saw and evaluated the patient. I reviewed the resident�s separately documented note and agree with findings and plan as documented in the resident�s note with the following additions/corrections
Subjective
remains afebrile
bp stable
Objective:
labs reviewed
03/14 CK 24
Blood Culture Final 03/12/25-816
Enterococcus faecalis
Organism 1 Enterococcus faecalis
1. Enterococcus faecalis
M.I.C. RX
--------- ---
Ampicillin <=2 S
Gentamicin Synergy Screen >500 R
Vancomycin 2 S
Lumbar spine MRI without contrast: limited exam, however OM/discitis at L4-L5 - no collections seen
Physical Exam
Constitutional: No Acute Distress and Chronically Ill
Cardiovascular: Regular Rate and S1/S2; Negative Murmur or Rub
Pulmonary: Clear and Symmetric; Negative Wheezes or Rales
Gastrointestinal: Soft, Non Tender, Non Distended and Normal Bowel Sounds
Musculoskeletal: Other post operative dressings in place, small amount of strikethrough otherwise clean, dry, intact
Skin: Warm and Dry; Negative Rash or Jaundice
Wound: Other (HD cath site dressing clean, dry, intact)
Assessment and Plan:
Enterococcal Bacteremia
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
OM/Discitis of L4-L5
Suspected Enterococcal Septic Joint of the Bilateral Knees (disseminated infection)
Concern for possible Psoas abscess - Right lumbar pain
Toxic Metabolic Encephalopathy
H/o EtOH use disorder, low ALT - possible cirrhosis though not previously diagnosed
on HD via [facility]
H/o multiple toe amputations bilaterally
- TME may relate to beta lactams, isolate is resistant to aminoglycosides, I will switch to daptomycin
- daptomycin dosing will switch to 6 mg/kg MW and 9 mg/kg F dosing schedule
- check CPK today and then on mondays moving forward
- hold statins while on daptomycin
- script provided to rn case mgr and my office04/21
- plan a 6 week course of IV antibiotics from clearance 03/11-
- note that patient has self removed two devices - seems to be related to delirium
- 03/09 blood cultures E faecalis
- repeat blood cultures /6 no growth to date
- /6 cath tip culture - E faecalis
- 03/12 OR cultures x3 in progress - gram stains not yet available
- RF negative
- MRI lumbar spine with OM/discitis but no fluid collections
- has temp HD line - ok for tunneled line from ID perspective
AW
Original Note:
Date of Service
Date of Service: March 17, 2025
Patient seen and examined on HD. Reports pain 8/10 in LLE. Denies fever, chills, nausea or vomiting
Today's Communication
MRI consistent with discitis-osteomyelitis at L4-5, no collections.
Continue IV antibiotics and plan for 6 weeks course.
May be able to go from ID standpoint.
Assessment / Plan
59-year-old male who presented with altered mental status and was found to have positive blood cultures for Enterococcus. S/p bilateral knee aspiration, imaging consistent with bilateral knee osteoarthritis.
Assessment and plan:
#Enterococcal Bacteremia
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
#H/o multiple toe amputations bilaterally
#Osteomyelitis
- Blood cultures x 2 03/09 positive for Enterococcus faecalis.
- Catheter tip culture /6 also positive for Enterococcus faecalis.
- Lumbar MRI 03/16 consistent with discitis-osteomyelitis at L4-5, most likely E. Faecalis. No epidural fluid collection seen.
- Repeat blood cultures /6 no growth.
- MRSA screen negative.
- On HD via [facility] (on line holiday), plan for tunneled catheter today per nephrology.
- RF negative.
- Antibiotics switched from ampicillin/ceftriaxone to IV daptomycin due to suspected beta-lactam induced acute TME.
- Continue IV daptomycin 6 mg/kg IV Q 48H. plan for total of 6 weeks of IV antibiotics.
- Follow Wound Cxs.
#Suspected Enterococcal Septic Joint of the Bilateral Knees (disseminated infection).
- Anaerobic and tissue Cxs of bilateral knees 03/12 in progress, NGTD, No anaerobes isolated.
- TTE 03/10 negative for any significant valvular disease.
- Given bilateral knee septic arthritis, highly suspect chronic bacteremia with potential endocarditis.
-SONYA when able.
#Acute TME
#H/o EtOH use disorder, low ALT - possible cirrhosis though not previously diagnosed
- Mental status much improved today.
- Suspected related to beta-lactam toxicity.
- Abx switched to IV daptomycin.
#Concern for possible Psoas abscess - Right lumbar pain
- Lumbar MRI negative for source of abscess.
- Stable for discharge from ID standpoint.
Chief Complaint
-: Other (Bilateral knee septic arthritis, probable endocarditis, disseminated enterococcus.)
Subjective / Review of Systems
Review of Systems: No Fever, No Chills, No Headache, No Stiff Neck, No Cough, No Chest Pain, No Palpitations, No Abdominal Pain, Vomiting, No Diarrhea, No Dysuria, Joint Pain and No Skin Rash
Vital Signs / Physical Exam
Vital Signs
Vital Signs
Temp Pulse Resp BP Pulse Ox
98.4 F 83 18 155/99 97
03/17/25 07:50 03/17/25 07:50 03/17/25 07:50 03/17/25 07:50 03/17/25 08:00
Physical Exam
Constitutional: No Acute Distress and Comfortable
Head: Normocephalic
Cardiovascular: Regular Rate and S1/S2; Negative Murmur or Rub
Pulmonary: Clear and Symmetric; Negative Wheezes or Rales
Gastrointestinal: Soft, Non Tender, Non Distended and Normal Bowel Sounds
Extremities: Negative Edema
Musculoskeletal: Joint Swelling, Joint Effusion and Other (Son wraps on bilateral knees)
Skin: Warm and Dry; Negative Rash or Jaundice
Wound: Other (HD cath site dressing clean, dry, intact)
Neurological: Awake and Alert
Psychological: Calm
Objective Data
Lab Data
Lab Results
03/17/25 07:32
03/17/25 07:32
ESR 98 mm/hour (0-20) H 03/10/25 07:41
PT 14.7 Sec (11.4-14.6) H 03/17/25 08:53
INR 1.12 03/17/25 08:53
APTT 38.3 Sec (23.4-35.0) H 03/17/25 08:53
Estimated Creat Clear 25 ml/min 03/17/25 07:32
Lactic Acid Cancelled 03/09/25 05:00
Total Bilirubin 0.5 mg/dl (0.2-1.3) 03/09/25 00:58
AST 19 U/L (17-59) 03/09/25 00:58
ALT < 10 U/L (0-50) 03/09/25 00:58
Alkaline Phosphatase 143 U/L (38-126) H 03/09/25 00:58
C-Reactive Protein 86.70 mg/L (0.0-10.00) H 03/10/25 07:41
Most recent labs reviewed.
Microbiology: Report Reviewed
Micro Results:
03/12/25 16:21 Wound Culture - Final
Knee - Left No growth
Gram Stain - Final
03/12/25 16:21 Anaerobic Culture - Final
Knee - Left NO ANAEROBES ISOLATED
03/12/25 07:31 Blood Culture - Final
Blood/Venous No Growth - Final Report
03/11/25 15:09 Blood Culture - Final
Blood/Venous No Growth - Final Report
03/11/25 14:35 Blood Culture - Final
Blood/Venous No Growth - Final Report
03/12/25 17:00 Anaerobic Culture - Preliminary
Knee - Right NO ANAEROBES ISOLATED
03/12/25 17:00 Anaerobic Culture - Preliminary
Abscess NO ANAEROBES ISOLATED
03/12/25 17:00 Tissue Culture - Preliminary
Abscess No Growth After 72 Hours
Gram Stain - Preliminary
03/12/25 17:00 Wound Culture - Preliminary
Knee - Right No growth
Gram Stain - Preliminary
03/10/25 14:18 Blood Culture - Final
Blood/Venous No Growth - Final Report
03/09/25 01:34 Blood Culture - Final
Blood/Venous Enterococcus faecalis
Gram Stain - Final
03/12/25 16:21 Tissue Culture - Final
Knee - Left No Growth After 72 Hours
Gram Stain - Final
03/11/25 09:27 Catheter Tip Culture - Final
Dialysis Line Enterococcus faecalis
03/09/25 20:42 Body Fluid Culture - Final
Knee - Right No Growth After 72 Hours
Gram Stain - Final
03/09/25 20:42 Body Fluid Culture - Final
Knee - Left No Growth After 72 Hours
Gram Stain - Final
03/09/25 20:42 Body Fluid Culture - Final
Synovial Fluid No Growth After 72 Hours
Gram Stain - Final
03/09/25 00:58 Blood Culture - Final
Blood/Venous Enterococcus faecalis
Gram Stain - Final
03/09/25 15:38 MRSA Screen - Final
Nose No Methicillin Resistant Staphylococcus aureus isolated.
03/09/25 01:58 Urine Culture - Final
Urine NO GROWTH
Care Review
Plan reviewed with: Physician
[2025-03-17 10:17] LABS: Folate 14.1 ng/ml (2.76-20); Vitamin B12 640 pg/ml (239-931)
[2025-03-17] MEDS: NOVOLOG FLEXPEN-LOW RESISTANCE SC ×3 (11:07→17:11)
[2025-03-17] MEDS: MUCINEX 1200 MG PO ×2 (11:13→20:24)
[2025-03-17] MEDS: VISBIOME 1 CAP PO (11:13)
[2025-03-17] MEDS: COLACE 100 MG PO ×2 (11:14→20:24)
[2025-03-17] MEDS: HEPARIN 5000 UNITS SC ×2 (11:14→20:24)
[2025-03-17] MEDS: SENOKOT 8.6 MG PO ×2 (11:14→20:24)
[2025-03-17] MEDS: FOLVITE 1 MG PO (11:14)
[2025-03-17] MEDS: LIDOCAINE 4% PATCH 1 PATCH TOPICAL (11:14)
[2025-03-17 12:21] LABS: Glucose - Point of Care 122 mg/dl (70-99)
--- NOTE | 2025-03-17 13:42 | CM ---
Chart reviewed and plan is for patient to return to [facility] when stable, per previous shoe parts caser's note, no auth required, shoe parts caser received a script for IV ABX post HD from infectious disease physician. park recreation manager faxed over script to
[facility] admissions to [facility], .
Plan; [facility]
Report [phone]
[2025-03-17 17:05] LABS: Glucose - Point of Care 116 mg/dl (70-99)
[2025-03-17] MEDS: LANTUS 0.06 UNITS SC (17:28)
[2025-03-17] MEDS: SEROQUEL 75 MG PO (20:24)
[2025-03-17 21:39] LABS: Glucose - Point of Care 195 mg/dl (70-99)
[2025-03-18] MEDS: SYNTHROID 150 MCG PO (05:08)
[2025-03-18] MEDS: PERCOCET 5/325 1 TABLET PO ×3 (05:11→18:15)
[2025-03-18 07:28] LABS: % Basophils 0.9 % (0-2); % Eosinophils 5.3 % (0-6); % Immature Granulocytes 0.4 % (0-0.5); % Lymphocytes 14.2 % (20.5-51.1); % Monocytes 9.5 % (1.7-9.3); % Neutrophils 69.7 % (42.2-75.2); Absolute Basophils 0.1 10^3/uL (0-0.2); Absolute Eosinophils 0.4 10^3/uL (0-0.7); Absolute Monocytes 0.7 10^3/uL (0.1-0.6); Absolute Neutrophils 4.7 10^3/uL (1.4-6.5); Hematocrit 27.9 % (39.0-52.0); Hemoglobin 8.5 g/dL (13.0-18.0); Mean Corp Hgb Conc. 30.5 g/dL (33.0-37.0); Mean Corpuscular Hgb 28.4 pg (27.0-31.0); Mean Corpuscular Volume 93.3 fL (80.0-94.0); Mean Platelet Volume 9.3 fL (7.4-10.4); Nucleated Red Blood Cells % 0 % (-); Platelet Count 170 10^3/uL (130-400); Red Blood Cell Count 2.99 10^6/uL (4.70-6.10); Red Cell Dist. Width 16.5 % (11.5-14.5); White Blood Cell Count 6.8 10^3/uL (4.8-10.8)
[2025-03-18 07:38] VITALS: BP 143/88
[2025-03-18 07:45] LABS: Glucose - Point of Care 115 mg/dl (70-99)
[2025-03-18 07:56] LABS: ALT (SGPT) < 10 U/L (0-50); AST (SGOT) 12 U/L (17-59); Albumin 2.5 g/dl (3.5-5.0); Alkaline Phosphatase 75 U/L (38-126); Blood Urea Nitrogen 24 mg/dl (9-20); Calcium 8.6 mg/dl (8.4-10.2); Carbon Dioxide 29 mmol/L (22-30); Chloride 106 mmol/L (98-107); Creatine Phosphokinase 34 U/L (55-170); Estimated Creatinine Clearance 32 ml/min; Glucose 98 mg/dl (70-99); Magnesium 1.6 mg/dl (1.6-2.3); Potassium 4.4 mmol/L (3.5-5.1); Sodium 138 mmol/L (135-145); Total Bilirubin 0.7 mg/dl (0.2-1.3); Total Protein 6.4 g/dl (6.3-8.2)
[2025-03-18] MEDS: NOVOLOG FLEXPEN-LOW RESISTANCE SC ×2 (08:58→16:45)
[2025-03-18] MEDS: MUCINEX 1200 MG PO (08:58)
[2025-03-18] MEDS: COLACE 100 MG PO (08:58)
[2025-03-18] MEDS: SENOKOT 8.6 MG PO (08:58)
[2025-03-18] MEDS: LIDOCAINE 4% PATCH 1 PATCH TOPICAL (08:59)
[2025-03-18] MEDS: FOLVITE 1 MG PO (08:59)
[2025-03-18] MEDS: HEPARIN 5000 UNITS SC (08:59)
[2025-03-18] MEDS: VISBIOME 1 CAP PO (08:59)
--- NOTE | 2025-03-18 09:33 | W.PN.HOSP.TC ---
Today's Communication/Plan
-
Update family
Plan discharge
Assessment / Plan
Assessment / Plan
Impression
Mr. Zuhair Posey is a 59-year-old male with IDDM 2, EtOH abuse, AIXA, hypothyroidism, H/O acute renal failure currently on HD, H/O septic arthritis of the bilateral knees with right patella removal currently on cefadroxil suppressive therapy that
presented to the hospital from his nursing facility with reported altered mental status. Also reportedly concerns for facial droop and speech deficits. AFVSS upon arrival, initial head CT unremarkable, chest x-ray with interstitial edema, brain
MRI unremarkable with no signs of acute CVA. Labs showed hemoglobin 8.0, creatinine 3.6, BUN 29, magnesium 1.5, albumin 2.6, TSH 44 with normal free T4. Iron studies with ferritin 568, TIBC 187, iron saturation 16%. Blood cultures taken on
arrival, was started on IV ceftriaxone and vancomycin in place of home cefadroxil due to knee effusions.
Patient had bilateral knee incision and drainage, culture results awaited.
Patient is on hemodialysis, catheter tip culture done on 03/11 revealed Enterococcus faecalis. ID is on board and patient is being managed on the lines of Enterococcus bacteremia secondary to catheter line related to Enterococcus/bilateral septic
arthritis. Second set of blood cultures awaited. TTE revealed no significant valve disease. Initially managed with beta-lactam antibiotics which was switched to daptomycin as patient was developing toxic metabolic and encephalopathy.
Assessment/plan
Septic Arthritis Bilateral Knees (POD 5 from bilateral knee washout)
#Enterococcus Bacteremia
#Concern for lumbar osteodiscitis
s/p arthrocentesis with fluid studies showing WBC 92,000 with > 90% PMN; no crystals seen; MRI knees (+)
Blood cultures returned positive for Enterococcus Faecalis with resistance to fluoroquinolones and aminoglycoside
Was previously treated with IV ceftriaxone and ampicillin; status posttreatment with IV vancomycin
Transitioned beta-lactam's to daptomycin 6 mg/kg IV every 48 hours due to TME from beta-lactam
Continue IV daptomycin every 48 hours with plan for 6+ weeks of antibiotics total
Appreciate ID and Orthopedics
MRI L-spine with and without contrast-IMPRESSION:
Markedly limited exam due to patient condition/discomfort with significant motion artifact and inability to complete the exam. No contrast could be given.
Findings are however consistent with discitis-osteomyelitis at L4-5. No epidural fluid collection seen.
Since no abcess-ID okay to continue antibiotics for 6 weeks
No growth on cultures (blood culture, wound culture) done on 03/12/2025
Acute blood loss anemia
-Hemoglobin baseline in the range of 8.5-9 due to anemia of chronic kidney disease
-Hemoglobin dropped to 7.1 following a OR on 03/12, no other signs of active bleeding
-s/p 2 unit total with hemoglobin back near baseline, hemoglobin 8.7 morning 03/16
Hemoglobin dropped slightly from 8.7-7.8, could be due to dilution, patient had hemodialysis session yesterday-hgb 8.5
Continue to monitor CBC and transfuse as needed
Metabolic Encephalopathy
#Concern for aspiration-patient to have video swallowing study done today (03/17)
#Delirium
-2/2 Above, encephalopathy appears resolved
-Delirium precautions, frequent redirection, optimize natural lighting
-avoid benzodiazepines and sedative
Hypothyroidism
-with TSH 44 on admission labs
-Repeat thyroid studies here near same as last
-Increase levothyroxine on morning of 03/12 to 150 mcg
-Will need to have repeat TSH in 4-6
#ESRD on HD
Hemodialysis session due today
#Anemia of chronic kidney disease
-Unclear etiology, had KRISHNA with ARF, hopeful to get off HD eventually
-Permacath removed due to bacteremia secondary to septic arthritis
-Perm cath in place
- Nephro consult appreciated
#IDDM 2
-Home regimen includes Lantus 6 units nightly and ISS with Accu-Cheks
-Remains on home regimen with well-controlled blood sugars
Case management.
Chart reviewed and plan is for patient to return to [facility] when stable, per previous case finishing machine adjuster's note, no auth required, case finishing machine adjuster received a script for IV ABX post HD from infectious disease physician. surface water manager faxed over script to
[facility] admissions to [facility], .
Plan; To return to [facility] when stable
Called the patient's mother Loan and updated her on his hospital course.All questions and concerns were answered
DVT prophylaxis SQ heparin
Full code
Renal diet
Anticipated Discharge: Within 24 hours
Subjective/Interval History
-
Date of Service: March 18, 2025
Objective Data
-
Labs:
Laboratory Results
03/18/25
07:19
WBC 6.8
Hgb 8.5 L
Hct 27.9 L
Plt Count 170
Sodium 138
Potassium 4.4
Chloride 106
Carbon Dioxide 29
BUN 24 H
Creatinine 2.8 H
Glucose 98
Calcium 8.6
Total Bilirubin 0.7
AST 12 L
ALT < 10
Alkaline Phosphatase 75
Vital Signs:
Vital Signs
Temp Pulse Resp BP Pulse Ox
98.8 F 86 18 143/88 97
03/18/25 07:38 03/18/25 07:38 03/18/25 07:38 03/18/25 07:38 03/18/25 07:38
I&O
03/17/25 03/18/25 03/19/25
06:59 06:59 06:59
Intake Total 960 / 960 660 / 660
Output Total 800 / 800
Balance 960 / 960 -140 / -140
--- NOTE | 2025-03-18 10:20 | PTOTSP ---
Video Swallow Examination
Thin and thick liquids reached pyriform sinuses prior to swallow onset, but patient demonstrated adequate airway protection with timely and complete laryngeal vestibular closure and pharyngeal clearance. No laryngeal penetration, aspiration or
pharyngeal stasis. Lateral sweep of esophagus was unremarkable.
Recommend:
1. Continue current diet of regular solids and Thin Liquids
2. Meds as best tolerated.
3. Upright with all meals given delayed swallow onset
No further ST indicated at this time.
[2025-03-18 10:53] VITALS: BP 141/83; PULSE 83; PULSE 84; O2SAT 98
[2025-03-18 11:23] LABS: Glucose - Point of Care 174 mg/dl (70-99)
--- NOTE | 2025-03-18 11:39 | CM ---
heavy equipment sales manager continues to follow with patient progress and spoke with Shellie in admissions at [facility] and IV ABX script faxed to admissions, and they can provide IV ABX for patient post HD. Per Shellie patient does not require Auth for skilled if
patient returns to facility within 15 days.
Plan; To return to [facility] when stable.
[facility]
Report [phone] 1st floor nurses station
[2025-03-18] MEDS: NOVOLOG FLEXPEN-LOW RESISTANCE 1 UNITS SC (12:49)
--- NOTE | 2025-03-18 15:02 | W.PN.NEPH.PH ---
Today's Communication / Plan
-
For discharge back to [facility] today
Assessment/Plan
-
59y M with PMH significant for DM-II, alcohol use disorder and acute renal failure requiring dialysis who presents to ED from [facility] for evaluation of mental status change.
Impression.
Acute kidney injury dialysis dependent Monday at [facility]
Altered mental status negative CAT scan and MRI for acute process
Anemia of chronic disease
Type 2 diabetes
PermCath
Plan.
HD tomorrow,
Status post CVC placement on 03/17/2025
Remains on IV daptomycin for osteodiscitis of lumbar spine and Enterococcus bacteremia for 6 weeks total
For discharge today
-
-
Date of Service: March 18, 2025
CC / HPI / ROS
-
Chief Complaint:
ESRD
History of Present Illness:
tolerated HD yesterday on Monday dialysis schedule
BP stable
Daptomycin for Enterococcus sepsis
Review of Systems:
No chest pain or shortness of breath
Labs
-
Labs:
WBC 6.8 10^3/uL (4.8-10.8) 03/18/25 07:19
RBC 2.99 10^6/uL (4.70-6.10) L 03/18/25 07:19
Hgb 8.5 g/dL (13.0-18.0) L 03/18/25 07:19
Hct 27.9 % (39.0-52.0) L 03/18/25 07:19
Plt Count 170 10^3/uL (130-400) 03/18/25 07:19
Sodium 138 mmol/L (135-145) 03/18/25 07:19
Potassium 4.4 mmol/L (3.5-5.1) 03/18/25 07:19
Chloride 106 mmol/L (98-107) 03/18/25 07:19
Carbon Dioxide 29 mmol/L (22-30) 03/18/25 07:19
BUN 24 mg/dl (9-20) H 03/18/25 07:19
Creatinine 2.8 mg/dL (0.7-1.3) H 03/18/25 07:19
eGFR 25.20 03/18/25 07:19
Glucose 98 mg/dl (70-99) 03/18/25 07:19
Calcium 8.6 mg/dl (8.4-10.2) 03/18/25 07:19
Phosphorus 4.6 mg/dl (2.5-4.5) H 03/17/25 07:32
Albumin 2.5 g/dl (3.5-5.0) L 03/18/25 07:19
Physical Exam
-
Vital Signs:
Vital Signs
Temp Pulse Resp BP Pulse Ox
98.8 F 86 18 143/88 97
03/18/25 07:38 03/18/25 07:38 03/18/25 07:38 03/18/25 07:38 03/18/25 07:38
Cardiovascular:: Regular rate and rhythm
Respiratory:: Bilateral: CTA
Lung Excursion:: Normal
Abdomen:: Nontender and Soft
Bowel Sounds:: Normal
Extremity Edema:: None: Bilateral:
[2025-03-18 15:17] VITALS: BP 150/90
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
[2025-03-18 16:45] LABS: Glucose - Point of Care 136 mg/dl (70-99)
[2025-03-18] MEDS: LANTUS 0.06 UNITS SC (16:50)
--- NOTE | 2025-03-19 16:52 | CM ---
TC from facility, updated clinicals sent via [facility].
== END 2025-03-18 18:22 | DRG 987 ==
LOC: 4 WEST ACU 03:45
PROVIDERS: Radiology Diagnostic Radiology; Radiology Vascular & Interventional Radiology; Specialist; Student in an Organized Health Care Education/Training Program; ADMITTING PHYSICIAN Hospitalist; ATTENDING PHYSICIAN Internal Medicine; CONSULT PHYSICIAN Internal Medicine Nephrology; CONSULT PHYSICIAN Orthopaedic Surgery; EMERGENCY PHYSICIAN Emergency Medicine; FAMILY PHYSICIAN Internal Medicine; OTHER PHYSICIAN Student in an Organized Health Care Education/Training Program
PROC: 0S9D3ZX Drainage of Left Knee Joint, Percutaneous Approach, Diagnostic (ICD-10-PCS; 2025-03-09)
PROC: 0S9C3ZX Drainage of Right Knee Joint, Percutaneous Approach, Diagnostic (ICD-10-PCS; 2025-03-09)
PROC: 5A1D70Z Performance of Urinary Filtration, Intermittent, Less than 6 Hours Per Day (ICD-10-PCS; 2025-03-10)
PROC: 0JPTXXZ Removal of Tunneled Vascular Access Device from Trunk Subcutaneous Tissue and Fascia, External Approach (ICD-10-PCS; 2025-03-11)
PROC: 05PYX3Z Removal of Infusion Device from Upper Vein, External Approach (ICD-10-PCS; 2025-03-11)
PROC: 0SBD0ZZ Excision of Left Knee Joint, Open Approach (ICD-10-PCS; 2025-03-12)
PROC: 0SBC0ZZ Excision of Right Knee Joint, Open Approach (ICD-10-PCS; 2025-03-12)
PROC: 30233N1 Transfusion of Nonautologous Red Blood Cells into Peripheral Vein, Percutaneous Approach (ICD-10-PCS; 2025-03-13)
PROC: 02H633Z Insertion of Infusion Device into Right Atrium, Percutaneous Approach (ICD-10-PCS; 2025-03-14)
PROC: 02HV33Z Insertion of Infusion Device into Superior Vena Cava, Percutaneous Approach (ICD-10-PCS; 2025-03-14)
PROC: B5181ZA Fluoroscopy of Superior Vena Cava using Low Osmolar Contrast, Guidance (ICD-10-PCS; 2025-03-17)
PROC: 0JH60XZ Insertion of Tunneled Vascular Access Device into Chest Subcutaneous Tissue and Fascia, Open Approach (ICD-10-PCS; 2025-03-17)
DX: T80.211A Bloodstream infection due to central venous catheter, initial encounter (principal); A41.81 Sepsis due to Enterococcus; G93.41 Metabolic encephalopathy; K68.12 Psoas muscle abscess; N18.6 End stage renal disease; I33.0 Acute and subacute infective endocarditis; N17.9 Acute kidney failure, unspecified; D62 Acute posthemorrhagic anemia; F05 Delirium due to known physiological condition; Z16.23 Resistance to quinolones and fluoroquinolones; M46.26 Osteomyelitis of vertebra, lumbar region; M00.862 Arthritis due to other bacteria, left knee; M00.861 Arthritis due to other bacteria, right knee; E11.69 Type 2 diabetes mellitus with other specified complication; E11.22 Type 2 diabetes mellitus with diabetic chronic kidney disease; F10.21 Alcohol dependence, in remission; R47.1 Dysarthria and anarthria; R29.810 Facial weakness; M17.0 Bilateral primary osteoarthritis of knee; B95.2 Enterococcus as the cause of diseases classified elsewhere; E03.8 Other specified hypothyroidism; F39 Unspecified mood [affective] disorder; D50.9 Iron deficiency anemia, unspecified; F17.210 Nicotine dependence, cigarettes, uncomplicated; D63.1 Anemia in chronic kidney disease; K74.60 Unspecified cirrhosis of liver; M46.46 Discitis, unspecified, lumbar region; D72.10 Eosinophilia, unspecified; E83.42 Hypomagnesemia; S83.239A Complex tear of medial meniscus, current injury, unspecified knee, initial encounter; X58.XXXA Exposure to other specified factors, initial encounter; Y84.8 Other medical procedures as the cause of abnormal reaction of the patient, or of later complication, without mention of misadventure at the time of the procedure; Y92.129 Unspecified place in nursing home as the place of occurrence of the external cause; Y71.2 Prosthetic and other implants, materials and accessory cardiovascular devices associated with adverse incidents; Z79.4 Long term (current) use of insulin; Z79.890 Hormone replacement therapy; Z79.891 Long term (current) use of opiate analgesic; Z99.2 Dependence on renal dialysis; Z79.2 Long term (current) use of antibiotics; Z89.429 Acquired absence of other toe(s), unspecified side; Z87.01 Personal history of pneumonia (recurrent); Z78.1 Physical restraint status
CPT/HCPCS: 36556; 36558; 36589; 70450; 70551; 71045; 72148; 73560; 73721; 73723; 74230; 76937; 77001; 80048; 80053; 80202; 81003; 81015; 82550; 82607; 82728; 82746; 82962; 83036; 83540; 83550; 83605; 83735; 84100; 84439; 84443; 85025; 85027; 85045; 85610; 85652; 85730; 86140; 86430; 86706; 86850; 86900; 86901; 86920; 87015; 87040; 87070; 87075; 87077; 87084; 87086; 87176; 87186; 87205; 87340; 89051; 89060; 92526; 92610; 92611; 93005; 93306; 96361; 96365; 96366; 96375; 97163; 97164; 97168; 97530; 97535; 99152; 99153; 99285; 99406; A9575; C1729; C1750; C1752; G0257; J0878; J2916; P9016; P9047; Q5106

== ENCOUNTER 2025-05-24 09:24 | Emergency (ER) | payer MEDICAID, OTHER, SELFPAY ==
[2025-05-24 09:28] VITALS: BP 136/80
[2025-05-24 09:32] VITALS: BP 136/80
--- NOTE | 2025-05-24 09:34 | ED.GENMED ---
History of Present Illness
General
Chief Complaint: Facial Problem
Source: patient
Exam Limitations: none
Time Seen by Provider: 05/24/25 09:31
Nursing documentation reviewed up to this point in time: agreed with
History of Present Illness
History of Present Illness:
Patient is a 59-year-old male with history hyperlipidemia, diabetes, CKD on dialysis who presents to the emergency department from nursing facility with left-sided facial droop. Patient reports progressively worsening left-sided facial droop which
he initially noticed yesterday. He does feel that it is more pronounced today. He is having difficulty shutting his left eye, as well.
He denies any headache or neck pain. No recent trauma. No associated change in strength of his extremities or numbness/tingling in extremities. He denies any dysarthria or changes in mental status.
Patient denies any recent fevers or cough. He denies any sore throat. No chest pain or shortness of breath. He does state that he feels mildly congested.
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
Review of Systems
Review of Systems
Allergies reviewed?: Yes
All Other Systems: ROS reviewed and negative except as documented in HPI and ROS
Phy Exam
Physical Exam
Physical Exam:
Vitals: Mildly hypertensive, otherwise vital signs stable. Afebrile
General: Patient is chronically ill-appearing.
Skin: Warm and dry, no rashes or lesions
Head: Normocephalic, atraumatic
Eyes: Sclera nonicteric. EOMs intact. No nystagmus.
Throat: Protecting airway
Neck: Normal ROM, no cervical spine tenderness, no meningismus
Cardiac: Regular rate and rhythm, no murmurs. Hemodialysis port on right chest wall
Pulm: Normal respiratory effort, no wheezes, rales, rhonchi heard on exam
Abdomen: Abdomen soft and nontender
Extremities: No evidence of cyanosis or edema. Deformity of b/l knees. No erythema or obvious effusion of knees.
Neuro: AAOx3. Fluent speech and normal comprehension. Marked left-sided facial weakness including inability to raise left eyebrow, incomplete closure of left eyelid, left-sided facial droop and flattening of left nasolabial fold. Right-sided
facial movement intact. No forehead sparing.
Psychiatric: Normal affect.
Scores
NIH Stroke Score
Level of Consciousness: 0 - Alert
LOC Questions: 0-Answers both correctly
LOC Commands: 0-Performs both correctly
Best Horizontal Gaze: 0-Normal
Visual [place]: 0=Normal, no visual loss
Facial Palsy: 2=Partial paralysis
Motor - Right Arm: 0=No drift 10 seconds
Motor - Left Arm: 0=No drift 10 seconds
Motor - Right Le-No drift 5 seconds
Motor - Left Le-No drift 5 seconds
Limb Ataxia: 0-Absent
Sensation: 0-Normal
Best Language: 0-No aphasia
Dysarthria: 0-Normal
Extinction and Inattention: 0-No abnormality
NIH Total Score:: 2
Course
Orders/Labs/Results
Orders:
Orders
05/24/25 09:41
CT Head W/o Iv Contrast Urgent
Comment:
Reason For Exam: Left sided facial droop
05/24/25 09:50
COVID-19 Antigen Urgent
Source: Nasal Swab
Influenza A+B Rapid Molecular Urgent
JANETTE Source: Nasal Swab
Specimen Description:
05/24/25 09:57
Complete Blood Count/With Diff Urgent
05/24/25 10:21
Basic Metabolic Panel Urgent
Lyme Progressive Urgent
Comment: ADD ON
05/24/25 10:39
Add On- LAB Urgent
Tests Added?: Lyme progressive
05/24/25 11:54
Prednisone [Deltasone] 50 mg PO NOW STA
Valacyclovir HCl [Valtrex] 1,000 mg PO NOW STA
05/24/25 11:56
Prednisone [Deltasone] 50 mg .ROUTE .STK-MED ONE
Abnormal Lab Results
05/24/25 05/24/25
09:57 10:21
WBC 3.3 L 10^3/uL
(4.8-10.8)
RBC 3.06 L 10^6/uL
(4.70-6.10)
Hgb 8.5 L g/dL
(13.0-18.0)
Hct 26.2 L %
(39.0-52.0)
MCHC 32.4 L g/dL
(33.0-37.0)
RDW 14.6 H %
(11.5-14.5)
Absolute Lymphs (auto) 1.0 L 10^3/uL
(1.2-3.4)
Monocytes % 17.0 H %
(1.7-9.3)
Chloride 96 L mmol/L
(98-107)
Carbon Dioxide 34 H mmol/L
(22-30)
BUN 36 H mg/dl
(9-20)
Creatinine 3.0 H mg/dL
(0.7-1.3)
Glucose 166 H mg/dl
(70-99)
05/24/25 09:57
05/24/25 10:21
Vital Signs
Initial and Last Documented VS:
Initial Vital Signs
BP
136/80
05/24/25 09:28
Last Documented Vital Signs
Temp Pulse Resp BP Pulse Ox
98.8 F 73 21 152/92 98
05/24/25 10:01 05/24/25 12:00 05/24/25 12:00 05/24/25 12:00 05/24/25 11:00
MDM/Problems Addressed
Differential Diagnosis Includes:
Not limited to: Serra's palsy, CVA/TIA, zoster., Lyme disease, viral illness, trauma, etc.
MDM/Problems Addressed:
59-year-old chronically ill male on dialysis presenting with gradual onset of left sided facial paralysis, including incomplete eyelid closure, left sided facial droop worsening over the past two days. No other associated neurologic symptoms. Vitals
as above. Exam reveals left sided facial paralysis, which involves forehead and includes inability to fully close left eye as well as left sided facial droop and flattening of NLF. No other focal neurological deficitsw on exam. No evidence of rash
or vesicles.
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 However � will obtain lab work, viral studies, check CT head.
Update: labs revealed mild leukopenia without other clinically significant abnormalities. CMP reveals stable renal insufficiency. Viral studies negative. Lyme pending although less likely given residence in nursing facility. CT without acute
findings. Patient has remained well and nontoxic appearing without any additional neurologic deficits. Symptoms consistent with Serra�s palsy. No indication for admission. Will start oral steroids. Given significance of facial droop and incomplete
eye closure � will add antivirals. Advised lubricating drops and taping eye closed at night. Strict return precautions discussed. Advises primary care follow up to ensure symptoms improving.
Chronic conditions affecting care:
CKD on dialysis
Acute Exacerbation and/or Progression of Chronic Illness:
N/A
*Radiology
Radiology exam reviewed: radiology read reviewed
*Pulse Oximetry
SaO2: 98
Oxygen Mode of Delivery: Room air
Patient hypoxic: no
*EKG
Interpreted by ED Provider?: NA
*Testing Tech Interpretation
Rate: Testing Tech- N/A
*Critical Care Note
Total Time (30-74mins, 75-104mins- exclusive of procedures): Not Applicable
Data Reviewed
Review of Other/Old Records Reveals: Discharge Summary (Discharge summary from 513 9:25 day hospital stay for septic arthritis of bilateral knees, bacteremia, metabolic encephalopathy)
ED Attending Note
-
Portions of this chart may have been created with voice recognition software.� Occasional wrong word or��sound alike� substitutions may have occurred due to the inherent limitations of voice recognition software.
Discharge Plan
Departure
Patient Disposition: Home (Routine Discharge)
Date of Disposition: 05/24/25
Time of Disposition: 11:55
Patient with high blood pressure during this ER visit?: Yes
Condition: Good
Covid-19: Negative COVID-19
Discharge Problem:
Left-sided Serra's palsy
Instructions: Serra's Palsy (DC), BLOOD PRESSURE
Prescriptions:
New
prednisone 50 mg tablet
50 mg PO DAILY 6 Days Qty: 6 0RF
valacyclovir 1 gram tablet
1,000 mg PO TID 7 Days Qty: 20 0RF
No Action
quetiapine 25 mg Tablet
75 mg PO HS
albuterol sulfate 0.63 mg/3 mL Solution For Nebulization
0.63 mg INHALATION Q4H PRN (Reason: SOB)
sennosides [senna] 8.6 mg Tablet
8.6 mg PO BID
acetaminophen 325 mg Tablet
650 mg PO Q6H PRN (Reason: Pain / Fever)
atorvastatin 20 mg Tablet
20 mg PO HS
lidocaine 4 % Adhesive Patch,Medicated
1 patch TOPICAL DAILY
Rx Instructions:
Low Back
polyethylene glycol 3350 [Miralax] 17 gram Powder In Packet
17 g PO BID
omeprazole 20 mg Capsule,Delayed Release(Dr/Ec)
20 mg PO DAILY
folic acid 1 mg Tablet
1 mg PO DAILY
Lactobacillus acidophilus Capsule
1,000 mmu cells PO DAILY
nicotine 7 mg/24 hr Patch 24 Hour
1 patch TRANSDERMAL Q24H
insulin aspart U-100 [Novolog FlexPen U-100 Insulin] 100 unit/mL (3 mL) Insulin Pen
1 sliding scale dose SC DIRECTED
insulin glargine [Lantus Solostar U-100 Insulin] 100 unit/mL (3 mL) Insulin Pen
4 unit SC QPM
melatonin 5 mg Tablet
5 mg PO HS
oxycodone 5 mg Tablet
5 mg PO Q6H PRN (Reason: moderate pain) 7 Days Qty: 30 0RF
sevelamer HCl 800 mg Tablet
800 mg PO TID
Referrals:
NONE,* [Family Provider, Internal Medicine]
Activity Restrictions/Additional Instructions:
PLEASE RETURN TO THE EMERGENCY DEPARTMENT WITH ANY FEVER, CHILLS, CHANGES IN MENTAL STATUS, CHANGES IN VISION, SEVERE HEADACHE, NUMBNESS/TINGLING OR WEAKNESS IN EXTREMITIES, WORSENING OF CURRENT SYMPTOMS, OR ANY OTHER CONCERNS
- As discussed�I suspect your symptoms are likely secondary to Serra's palsy today.
- A prescription for steroids has been sent to your pharmacy. You can take this once a day for the next 6 days. You were given your first dose in the emergency department should resume this tomorrow. In addition�a prescription for antiviral has
been sent to your pharmacy which you can take 3 times a day for the next week. You were also given your first dose of this in the emergency department.
- Please monitor your blood sugar levels closely given additional steroid use
- You should use artificial tears/eye lubricant to prevent significant dryness or corneal abrasions. Please be sure to tape your eyelid closed at night.
- Follow-up with primary care in 1 week to ensure symptoms are improving/for further evaluation. If symptoms persist/worsen you may need a neurology evaluation/further imaging
Monitor your symptoms closely and return to the emergency department with any acute worsening/new symptoms or any other concerns
Interventions
Interventions:
*Risk Screen - Suicide Last Done: 05/24/25 09:46
*General Assessment Last Done: 05/24/25 10:01
*Neglect/Abuse Screening Last Done: 05/24/25 09:45
*ED- Fall Risk Assessment Last Done: 05/24/25 09:46
*Nursing Disposition Last Done: 05/24/25 13:38
ED- Neurological Assessment Last Done: 05/24/25 09:39
ED-Skin Assessment Last Done: 05/24/25 10:24
Discharge Date and Time
Discharge Date/Time: 05/24/25 13:00
Print Language: MARTINIQUAIS
[2025-05-24 10:04] LABS: Hematocrit 26.2 % (39.0-52.0); Hemoglobin 8.5 g/dL (13.0-18.0); Mean Corp Hgb Conc. 32.4 g/dL (33.0-37.0); Mean Corpuscular Volume 85.6 fL (80.0-94.0); Nucleated Red Blood Cells % 0 % (-); Platelet Count 187 10^3/uL (130-400); Red Cell Dist. Width 14.6 % (11.5-14.5)
[2025-05-24 10:21] LABS: COVID-19 Antigen Negative (Negative)
[2025-05-24 10:22] VITALS: BP 139/80
[2025-05-24 10:47] LABS: Blood Urea Nitrogen 36 mg/dl (9-20); Calcium 9.2 mg/dl (8.4-10.2); Carbon Dioxide 34 mmol/L (22-30); Chloride 96 mmol/L (98-107); Glucose 166 mg/dl (70-99); Sodium 135 mmol/L (135-145); eGFR 23.20
[2025-05-24 11:00] VITALS: BP 142/77
[2025-05-24 12:00] VITALS: BP 152/92
[2025-05-24] MEDS: DELTASONE 50 MG PO (12:01)
[2025-05-24] MEDS: VALTREX 1000 MG PO (12:01)
== END 2025-05-24 13:00 | disposition home or self-care (01) ==
LOC: EMR 09:24
PROVIDERS: Physician Assistant; EMERGENCY PHYSICIAN Emergency Medicine
DX: G51.0 Bell's palsy (principal); Z11.52 Encounter for screening for COVID-19; R03.0 Elevated blood-pressure reading, without diagnosis of hypertension; E78.5 Hyperlipidemia, unspecified; E11.22 Type 2 diabetes mellitus with diabetic chronic kidney disease; N18.6 End stage renal disease; Z99.2 Dependence on renal dialysis; Z79.4 Long term (current) use of insulin; Z87.891 Personal history of nicotine dependence
CPT/HCPCS: 99284; 70450; 80048; 85025; 86618; 87502; 87811